=== PATIENT | female | born 2000 | race Caucasian/White ===

== ENCOUNTER → 2018-02-08 | Outpatient (CLI) | payer BC, OTHER ==
--- NOTE | 2018-02-08 11:21 | US ---
EXAMINATION TYPE: US abdomen complete DATE OF EXAM: 02/08/2018 COMPARISON: NONE CLINICAL HISTORY: Right Upper Quad Pain R10.11. Abdominal pain, nausea, constipation for 3 weeks EXAM MEASUREMENTS: Liver Length: 14.6 cm Gallbladder Wall: 0.3 cm CBD: 0.3 cm Spleen: 10.9 cm Right Kidney: 9.1 x 3.7 x 4.2 cm Left Kidney: 9.2 x 3.7 x 4.7 cm Extreme technical limitations due to patient's body habitus and large amount of overlying bowel con tent Pancreas: Obscured by bowel gas Liver: appears wnl as visualized Gallbladder: no evidence of stones Evidence for sonographic Jones's sign: no CBD: wnl as visualized Spleen: wnl Right Kidney: no evidence of hydronephrosis or mass as visualized Left Kidney: no evidence of hydronephrosis or mass as visualized Upper IVC: wnl Abd Aorta: visualized portions appear wnl The liver is homogenous. The intrahepatic portion of the IVC and proximal abdominal aorta are within normal limits. There is no evidence of cholelithiasis. Common bile duct is unremarkable. The visu alized portions of the pancreas are homogenous. The spleen is unremarkable. Kidneys are symmetric a nd free of hydronephrosis. No renal lesions are seen. IMPRESSION: No significant abnormality appreciated.
[2018-02-08 11:56] LABS: Basophils % (A) 0 %; Eosinophils # (A) 0.2 k/uL (0-0.7); Eosinophils % (A) 3 %; HCT 34.7 % (34.0-46.0); HGB 11.7 gm/dL (11.4-16.0); Lymphocytes # (A) 2.4 k/uL (1.0-4.8); Lymphocytes % (A) 30 %; MCH 28.5 pg (25.0-35.0); MCHC 33.6 g/dL (31.0-37.0); MCV 84.9 fL (80.0-100.0); Mean Platelet Volume 7.4; Monocytes # (A) 0.3 k/uL (0-1.0); Monocytes % (A) 4 %; Neutrophils # (A) 4.8 k/uL (1.3-7.7); Neutrophils % (A) 61 %; Platelet Count 259 k/uL (150-450); RBC 4.09 m/uL (3.80-5.40); RDW 12.8 % (11.5-15.5); WBC 7.8 k/uL (4.0-11.0)
[2018-02-08 12:26] LABS: ALT 33 U/L (9-52); AST 32 U/L (14-36); Albumin 4.2 g/dL (3.5-5.0); Alkaline Phosphatase 64 U/L (38-126); Amylase 54 U/L (30-110); Anion Gap 10 mmol/L; Blood Urea Nitrogen 7 mg/dL (7-17); Calcium 9.6 mg/dL (8.4-10.2); Carbon Dioxide 25 mmol/L (22-30); Chloride 105 mmol/L (98-107); Glucose 78 mg/dL (74-99); Lipase 27 U/L (23-300); Potassium 3.8 mmol/L (3.5-5.1); Sodium 140 mmol/L (137-145); Total Bilirubin 0.5 mg/dL (0.2-1.3); Total Protein 7.5 g/dL (6.3-8.2)
[2018-02-08 12:39] LABS: T4, Free (Free Thyroxine) 1.85 ng/dL (0.78-2.19)
[2018-02-08 13:14] LABS: HCG,Qualitative Serum Not Detected
[2018-02-08 14:38] LABS: Erythrocyte Sedimentation Rate 15 mm/hr (0-20)
== END | disposition home or self-care (01) ==
LOC: RADUSWWP 10:17
PROVIDERS: ATTEND Physician Assistant
DX: R10.11 Right upper quadrant pain (principal); R11.0 Nausea; E06.3 Autoimmune thyroiditis
CPT/HCPCS: 36415; 76700; 80053; 82150; 83690; 84439; 84443; 84481; 84703; 85025; 85652; 86376; 86800

== ENCOUNTER → 2018-03-26 | Outpatient (CLI) | payer BC, OTHER ==
[2018-03-26 16:59] LABS: T4, Free (Free Thyroxine) 1.4 ng/dL (0.83-1.43)
== END | disposition home or self-care (01) ==
LOC: LABWHC1 07:49
PROVIDERS: ATTEND Physician Assistant
DX: E06.3 Autoimmune thyroiditis (principal)
CPT/HCPCS: 36415; 84439; 84443; 84481

== ENCOUNTER → 2018-07-17 | Outpatient (CLI) | payer BC ==
--- NOTE | 2018-07-17 10:43 | US ---
EXAMINATION TYPE: US thyroid st tissue head/neck DATE OF EXAM: 07/17/2018 COMPARISON: 04/21/2011 CLINICAL HISTORY: 17-year-old female E04.9 Nontoxic Goiter Unspecified. TECHNIQUE: Multiple sonographic images of the thyroid gland are obtained. FINDINGS: GLAND SIZE: Right Lobe: 4.9 x 1.4 x 1.8 cm Overall Parenchyma: mildly heterogeneous Left Lobe: 4.7 x 1.4 x 1.5 cm Overall Parenchyma: mildly heterogeneous Isthmus Thickness: 0.3 cm NODULES RIGHT: # of nodules measured on right: 0 LEFT: # of nodules measured on left: 0 ISTHMUS: # of nodules measured in the isthmus: 0 Bilateral neck scanned, no evidence of lymphadenopathy. IMPRESSION: Borderline thyromegaly. No discrete nodules.
== END | disposition home or self-care (01) ==
LOC: RADUSWWP 07:36
PROVIDERS: ATTEND Family Medicine
DX: E01.0 Iodine-deficiency related diffuse (endemic) goiter (principal)
CPT/HCPCS: 76536

== ENCOUNTER 2019-02-28 21:52 | Inpatient (IN) | payer BC, MEDICAID, OTHER ==
--- NOTE | 2019-02-28 23:02 | ED ---
General Adult HPI - General Chief complaint: Psychiatric Symptoms Stated complaint: Suicidal Time Seen by Provider: 02/28/19 22:19 Source: patient, family, RN notes reviewed Mode of arrival: ambulatory Limitations: no limitations - History of Present Illness Initial comments: 18-year-old female with a past medical history of migraines, bipolar, depressi on, anxiety currently taking Lexapro and Seroquel as directed presents to the emergency department for suicidal thoughts. Patient states she has felt suicidal for about 3 weeks. Patient states this is related to her job. States her boss is causing her to have a lot of stress as she works in a longterm. Patient denies being a plan for this. Does state she has felt suicidal in the past and states that she attempted suicide once by taking all her Lexapro about a year ago. States she was not seen medically at that time and "threw up all the pills." Patient has no other complaints at this time including shortness of breath, chest pain, abdominal pain, nausea or vomiting, headache, or visual changes. - Related Data Home Medications Medication Instructions Recorded Confirmed Escitalopram [Lexapro] 10 mg PO DAILY 07/13/18 07/13/18 Ibuprofen [Motrin Ib] 400 mg PO Q6H PRN 07/13/18 07/13/18 QUEtiapine [SEROquel] 50 mg PO DAILY 07/13/18 07/13/18 Allergies Allergy/AdvReac Type Severity Reaction Status Date / Time No Known Allergies Allergy Verified 02/28/19 22:18 Review of Systems ROS Statement: Those systems with pertinent positive or pertinent negative responses have been documented in the HPI. ROS Other: All systems not noted in ROS Statement are negative. Past Medical History Past Medical History: Thyroid Disorder Additional Past Medical History / Comment(s): migraines History of Any Multi-Drug Resistant Organisms: None Reported Past Surgical History: No Surgical Hx Reported Past Psychological History: Anxiety, Bipolar, Depression Smoking Status: Current every day smoker Past Alcohol Use History: None Reported Past Drug Use History: None Reported General Exam Limitations: no limitations General appearance: alert, in no apparent distress Head exam: Present: atraumatic, normocephalic, normal inspection Eye exam: Present: normal appearance, PERRL, EOMI. Absent: scleral icterus, conjunctival injection, periorbital swelling ENT exam: Present: normal exam, mucous membranes moist Neck exam: Present: normal inspection, full ROM. Absent: tenderness, meningismus, lymphadenopathy Respiratory exam: Present: normal lung sounds bilaterally. Absent: respiratory distress, wheezes, rales, rhonchi, stridor Cardiovascular Exam: Present: regular rate, normal rhythm, normal heart sounds. Absent: systolic murmur, diastolic murmur, rubs, gallop, clicks Psychiatric exam: Present: normal affect, normal mood, suicidal ideation. Absent: homicidal ideation Course Vital Signs 02/28/19 22:12 Temperature 98.7 F Pulse Rate 83 Respiratory 20 Rate Blood Pressure 127/77 O2 Sat by Pulse 98 Oximetry Medical Decision Making - Medical Decision Making Patient was evaluated by EPS, patient was admitted for inpatient treatment. - Lab Data Lab Results 02/28/19 Range/Units 22:44 Urine Color Yellow Urine Appearance Cloudy H (Clear) Urine pH 6.0 (5.0-8.0) Ur Specific Fowler 1.035 (1.001-1.035) Urine Protein Trace H (Negative) Urine Glucose (UA) Negative (Negative) Urine Ketones Trace H (Negative) Urine Blood Negative (Negative) Urine Nitrite Negative (Negative) Urine Bilirubin Negative (Negative) Urine Urobilinogen 6.0 (<2.0) mg/dL Ur Leukocyte Esterase Negative (Negative) Urine RBC 26 H (0-5) /hpf Urine WBC 2 (0-5) /hpf Ur Squamous Epith Cells 13 H (0-4) /hpf Urine Bacteria Rare H (None) /hpf Urine Mucus Occasional H (None) /hpf Urine Opiates Screen Not Detected (NotDetected) Ur Oxycodone Screen Not Detected (NotDetected) Urine Methadone Screen Not Detected (NotDetected) Ur Propoxyphene Screen Not Detected (NotDetected) Ur Barbiturates Screen Not Detected (NotDetected) U Tricyclic Antidepress Detected H (NotDetected) Ur Phencyclidine Scrn Not Detected (NotDetected) Ur Amphetamines Screen Not Detected (NotDetected) U Methamphetamines Scrn Not Detected (NotDetected) U Benzodiazepines Scrn Not Detected (NotDetected) Urine Cocaine Screen Not Detected (NotDetected) U Marijuana (THC) Screen Not Detected (NotDetected) Disposition Clinical Impression: Suicidal ideation Disposition: ADMITTED IP TO THIS HOSP Condition: Fair Time of Disposition: 03:18
[2019-02-28 23:11] LABS: Appearance,Urine Cloudy (Clear); Bacteria,Urine Rare /hpf; Bilirubin,Urine Negative (Negative); Blood,Urine Negative (Negative); Color,Urine Yellow; Glucose,Urine (UA) Negative (Negative); Ketones,Urine Trace (Negative); Leukocyte Esterase,Urine Negative (Negative); Mucus,Urine Occasional /hpf; Nitrite,Urine Negative (Negative); Protein,Urine Trace (Negative); RBC,Urine 26 /hpf (0-5); Specific Gravity,Urine 1.035 (1.001-1.035); Squamous Epithelial Cell,Urine 13 /hpf (0-4); WBC,Urine 2 /hpf (0-5)
[2019-02-28 23:12] LABS: Amphetamine Screen,Urine Not Detected (NotDetected); Barbiturate Screen,Urine Not Detected (NotDetected); Benzodiazepines Screen,Urine Not Detected (NotDetected); Cocaine Screen,Urine Not Detected (NotDetected); Methadone Screen, Urine Not Detected (NotDetected); Opiate Screen,Urine Not Detected (NotDetected); Oxycodone Screen, Urine Not Detected (NotDetected); Phencyclidine Screen,Urine Not Detected (NotDetected); Tricyclic Antidepressant,Urine Detected (NotDetected); Urn Cannabinoid Scrn Not Detected (NotDetected)
[2019-03-01] MEDS ORDERED: MAGNESIUM HYDROXIDE 2,400 MG/10 ML CUP PO PRN (02:44)
[2019-03-01] MEDS ORDERED: MAG HYDROX/AL HYDROX/SIMETH 30 ML CUP PO PRN (02:44)
[2019-03-01] MEDS ORDERED: LORazepam 1 MG TAB PO PRN (02:44)
[2019-03-01] MEDS ORDERED: ESCITALOPRAM 20 MG TAB PO SCH (02:50)
[2019-03-01 03:27] VITALS: BMI 37.8
[2019-03-01] MEDS: QUEtiapine 25 MG TAB PO SCH ×2 (03:47→20:55)
[2019-03-01] MEDS: NICOTINE 14MG/24HR PATCH TRANSDERM SCH (10:05)
--- NOTE | 2019-03-01 11:52 | P.CONS ---
History of Present Illness - Reason for Consult Consult date: 03/01/19 Medical management - Chief Complaint Suicidal thoughts - History of Present Illness This is a 18-year-old female with past medical history of underlying depression who presented to the emergency room with suicidal thoughts. Patient is currently admitted to the psych unit. I was asked to see her for medical management. Patient reports feeling better today. She said that she was under a lot of emotional stress recently and has been having suicidal thoughts for the past 3 weeks. She said that she had the plan and her life but would not share the specifics with me. She denies any suicidal thoughts at this time. Patient does not have any specific complaints or concerns otherwise. She denies any substance abuse. She denies dysuria, fever, chills, or urinary frequency. Review of Systems Review of system: 14 points review of systems were obtained and were negative except to what were mentioned in the HPI. Past Medical History Past Medical History: Thyroid Disorder Additional Past Medical History / Comment(s): migraines History of Any Multi-Drug Resistant Organisms: None Reported Past Surgical History: No Surgical Hx Reported Past Psychological History: Anxiety, Bipolar, Depression Smoking Status: Current every day smoker Past Alcohol Use History: None Reported Past Drug Use History: None Reported Medications and Allergies Home Medications Medication Instructions Recorded Confirmed Type Escitalopram [Lexapro] 10 mg PO DAILY 07/13/18 03/01/19 History Ibuprofen [Motrin Ib] 400 mg PO Q6H PRN 07/13/18 03/01/19 History QUEtiapine [SEROquel] 50 mg PO DAILY 07/13/18 03/01/19 History Allergies Allergy/AdvReac Type Severity Reaction Status Date / Time No Known Allergies Allergy Verified 03/01/19 04:22 Physical Exam Vitals: Vital Signs Temp Pulse Pulse Resp BP BP Pulse Ox 03/01/19 03:19 98.0 F 67 16 129/76 98 02/28/19 22:12 98.7 F 83 20 127/77 98 Intake and Output 02/28/19 03/01/19 03/01/19 22:59 06:59 14:59 Other: Weight 93.894 kg General: The patient is awake and alert, in no distress Eye: there is normal conjunctiva bilaterally. Neck: The neck is supple, there is no JVD. Cardiovascular: Normal S1-S2, no S3-S4, no murmurs. Respiratory: Lungs clear to auscultation bilaterally Gastrointestinal: Abdomen is soft, nontender Musculoskeletal: There is no pedal edema. Neurological:. Speech is normal. Skin: Skin is warm and dry Results Labs: Abnormal Lab Results - Last 24 Hours (Table) 02/28/19 Range/Units 22:44 Urine Appearance Cloudy H (Clear) Urine Protein Trace H (Negative) Urine Ketones Trace H (Negative) Urine RBC 26 H (0-5) /hpf Ur Squamous Epith Cells 13 H (0-4) /hpf Urine Bacteria Rare H (None) /hpf Urine Mucus Occasional H (None) /hpf U Tricyclic Antidepress Detected H (NotDetected) Assessment and Plan Assessment: This is a 18-year-old female with history of severe depression admitted to the psych unit with suicidal thoughts. An arrangement per psychiatry. Urine sample obtained in the ER was not a clean catch urine and does not represent a UTI. Patient is a symptomatic. I would defer any treatment at this time. Patient expresses any urinary symptoms may obtain a clean-catch urine and repeat urinalysis. Management per psychiatry otherwise. Thank you very much for the consultation.
--- NOTE | 2019-03-01 16:41 | HP ---
HISTORY AND PHYSICAL DATE OF SERVICE: 03/01/2019 IDENTIFYING DATA: This patient is a 18-year-old single female who was admitted to the mental health unit through the emergency room for acute suicidal ideation. HISTORY OF PRESENT ILLNESS: The patient was brought to the hospital by her mother. The patient states that she had experienced a significant panic attack at home. During that panic attack she had made statements of wanting to . Her mother became alarmed and brought her to the hospital for evaluation. The patient states that she has been increasingly more depressed and anxious and had been considering suicide for the past 3 weeks. She states the panic attack was triggered by work related stress and in particular, she feels that her boss talks down to her. 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 She states that she feels on edge. She is anxious. Sleep has been improved with use of Seroquel. Appetite is stable. She endorses crying spells on a regular basis. She reports feeling hopeless at times. She continues to have ongoing suicidal thoughts of wanting to and she states that she would be better off . At times she feels she is not worthy of living. She endorses no homicidal ideation, intent, or plan. She reports no auditory, visual hallucinations or any specific delusions. She is endorsing no hypomanic or manic episodes. She endorses anxiety that is present on a daily basis excessively which contributes to sleep disturbance, irritability, muscle tension, etc. She states she has 1 panic attack about every 2 weeks and is worried that they will increase in frequency. She resides with her boyfriend. They have no firearms at home. PAST PSYCHIATRIC HISTORY: This is her first inpatient psychiatric admission. She does have a history of a suicide attempt in the past for she overdosed with Lexapro. She does have a history of self-injurious behavior in the form of cutting. She has been trying to reduce that and has not cut in the last 2 months. She is receiving counseling at [facility]. She had stopped and then just recently restarted. She is seeing a mid- level provider there and was put on Lexapro 20 mg 1 year ago, Seroquel 25 mg at bedtime. This was started in September. She has been on no other psychotropic medications. She feels that the Lexapro has been ineffective. The Seroquel has helped with sleep. PAST MEDICAL HISTORY: Gonzalo's. She is on no medication. ALLERGIES: No known drug allergies. CHEMICAL DEPENDENCY HISTORY: She reports no use of alcohol, marijuana, or illicit drugs. She has never been placed in residential treatment for chemical dependency reasons. FAMILY PSYCHIATRIC HISTORY: She states her mother, father and maternal grandmother are known to have anxiety and depression. Her paternal grandfather was known to have schizophrenia. In terms of suicides, a maternal cousin committed suicide in 2017. FAMILY CHEMICAL DEPENDENCY HISTORY: Her paternal grandfather had a severe alcohol use disorder. SOCIAL HISTORY: The patient is 18 years old. She is single. She has no children. She resides with her boyfriend. They have been together for 4 years and living together for 1 year. Primary support is derived from her mother. She states the relationship with her boyfriend is good. 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 She has a high school education. No history of service. She has 2 siblings, both brothers. LEGAL HISTORY: None reported. ABUSE HISTORY: None reported. MENTAL STATUS EXAM: The patient is an overweight female appearing her stated age. She is dressed in her own clothing. Hygiene and grooming are adequate. She wears eye glasses. There is evidence of cystic acne. She endorses a depressed mood with hopeless feelings and ongoing suicidal ideation. She reports no homicidal ideation, intent, or plan. She is endorsing no auditory or visual hallucinations or any specific delusions. There is no observed evidence of psychosis. She demonstrates no tangential thinking, loose associations or flight of ideas. She does not appear to be hypomanic or manic. She is cooperative and easily directed during the session. She demonstrates no verbal or physical aggressiveness. She demonstrates no involuntary repetitive movements. She is oriented to person, place, and date. She is able to name the days of the week backwards. Affect is appropriately expressive, but for the most part is constricted. STRENGTHS: Support from mother and boyfriend, housing, employment. WEAKNESSES: Ongoing severe symptoms of depression. INTELLECT: Average. IMPRESSIONS: Major depressive disorder, recurrent, severe, without psychosis; generalized anxiety disorder, rule out panic disorder. PLAN OF TREATMENT: The patient has been admitted to the mental health unit voluntarily. We reviewed her presenting symptoms and treatment options. We plan to cross taper off Lexapro and on the Zoloft. We are hoping the Zoloft will help address depressive anxiety symptoms. We discussed potential benefits and side effects of Zoloft and her questions were answered. She will be seen by Internal Medicine for routine history and physical exam. Social Work has met with the patient to complete a psychosocial assessment and begin discharge planning. We will involve the patient's mother in treatment and discharge planning as the patient will allow. She is instructed to participate fully in the milieu. We will monitor for safety. MMODL / IJN: [id number] /
[2019-03-01] MEDS: ACETAMINOPHEN TAB 325 MG TAB PO PRN (17:48)
[2019-03-01] MEDS: SERTRALINE 50 MG TAB PO SCH (20:55)
[2019-03-02 07:54] LABS: Basophils # (A) 0.1 k/uL (0-0.2); Basophils % (A) 1 %; Eosinophils # (A) 0.8 k/uL (0-0.7); Eosinophils % (A) 11 %; HCT 39.8 % (34.0-46.0); HGB 12.8 gm/dL (11.4-16.0); Lymphocytes # (A) 2.4 k/uL (1.0-4.8); Lymphocytes % (A) 30 %; MCH 27.9 pg (25.0-35.0); MCHC 32.1 g/dL (31.0-37.0); MCV 87.1 fL (80.0-100.0); Mean Platelet Volume 7.1; Monocytes # (A) 0.3 k/uL (0-1.0); Monocytes % (A) 4 %; Neutrophils % (A) 52 %; Platelet Count 309 k/uL (150-450); RBC 4.57 m/uL (3.80-5.40); RDW 12.7 % (11.5-15.5); WBC 7.7 k/uL (4.0-11.0)
[2019-03-02 08:38] LABS: ALT 26 U/L (9-52); AST 24 U/L (14-36); African American GFR (CKD) >90 (>60 ml/min/1.73 sqM); Albumin 4.2 g/dL (3.5-5.0); Alkaline Phosphatase 85 U/L (38-126); Anion Gap 7 mmol/L; Bilirubin, Delta 0.2 mg/dL (0.0-0.2); Bilirubin,Unconjugated 0.4 mg/dL (0.0-1.1); Blood Urea Nitrogen 9 mg/dL (7-17); Calcium 9.6 mg/dL (8.4-10.2); Carbon Dioxide 27 mmol/L (22-30); Chloride 106 mmol/L (98-107); Cholesterol 133 mg/dL (<200); Glucose 84 mg/dL (74-99); HDL Cholesterol 58 mg/dL (40-60); LDL Cholesterol,Calculated 53 mg/dL (0-99); Potassium 4.4 mmol/L (3.5-5.1); Sodium 140 mmol/L (137-145); Total Bilirubin 0.6 mg/dL (0.2-1.3); Total Protein 7.7 g/dL (6.3-8.2); Triglycerides 109 mg/dL (<150)
[2019-03-02] MEDS: NICOTINE 14MG/24HR PATCH TRANSDERM SCH (10:12)
[2019-03-02] MEDS: ESCITALOPRAM 10 MG TAB PO SCH (10:12)
--- NOTE | 2019-03-02 14:46 | P.PN ---
Progress Note - Text Interval history: The patient is found in the hallway she follows me to an interview room. She indicates that her mood is down today she had a tough conversation with her mother via phone. Her mother accused her of not trying hard enough and not wanting to get better. Her mother is visiting some night so she is hoping he'll be another chance to have a better discussion. We reviewed the patient's psychotropic medications. She has no questions or concerns. Sleep was stable appetite stable. Mental status exam: The patient is an alert overweight female appearing her stated age. She is pleasant and cooperative easily directed during the session. She indicates her mood is down she does have some self- injurious thoughts she continues to have suicidal thoughts. She feels that she is able to keep herself safe here in the hospital however. She reports no auditory or visual hallucinations. She is reporting no specific delusions. There is no observed evidence of psychosis hypomania or oskar. Insight and judgment limited. She is oriented to person place and date. Plan: The patient will continue on her current medications however we will discontinue the Lexapro she will remain on the Zoloft and this will likely need to be titrated further during the hospitalization. We will monitor her for safety and encourage participation in the milieu. Vital signs reviewed.
[2019-03-02] MEDS: SERTRALINE 50 MG TAB PO SCH (21:25)
[2019-03-02] MEDS: QUEtiapine 25 MG TAB PO SCH (21:25)
[2019-03-03] MEDS: ESCITALOPRAM 10 MG TAB PO SCH (08:44)
[2019-03-03] MEDS: NICOTINE 14MG/24HR PATCH TRANSDERM SCH (08:44)
[2019-03-03 09:38] LABS: Hemoglobin A1C 4.8 % (4.0-6.0)
--- NOTE | 2019-03-03 16:00 | P.PN ---
Progress Note - Text Progress Note Date: 03/03/19 Clinical Problems: Major depressive disorder recurrent severe without psychosis, generalized anxiety disorder, rule out panic disorder, rule out borderline personality disorder Interim history: I reviewed the medical record, interviewed the patient and discuss her treatment and treatment plan during team meeting. She is a 18-year-old single female admitted involuntarily to the psychiatric unit with suicidal ideation. Her mother brought her to the ER because during the argument she expressed suicidal ideation. She told the admitting psychiatrist that she has become increasingly more depressed and anxious and been considering suicide for approximately 3 weeks prior to admissio n. The current distress was triggered allegedly by a panic attack that she initially attributed to work stress. During our interview she alleged that she became enraged during the argument with her mother. She lives with the boyfriend was visiting with her mother on the day of admission. She told her mother her plans to the tips of her hair pink. Her mother criticized her and during the conversation she became more and more angry and anxious. The argument culminated in her experiencing what she described as a "panic attack" and expressing suicidal thoughts to her mother. She describes a history of a unstable relationship with her mother where she becomes acutely distressed whenever mother criticizes her. She described chronic feelings of loneliness and isolation. She has a history of self cutting and one prior suicide attempt by overdose. She described history of intense episodes of depression and anxiety as well as chronic feelings of emptiness. Since admission to the unit she denied having suicidal ideation, intent or plan. She continues to feel depressed and "moderately" anxious. Mental status exam: She presented as a moderately obese young female who was pleasant on approach. She made eye contact and attended to the interview. She had no prominent physical abnormalities. She had a bright facial expression. She was alert and oriented to person, place and time. She showed no abnormality of psychomotor activity. She had no abnormal movements. Her speech was spontaneous with normal rate, rhythm and volume. Affect was anxious but stable and appropriate. She denied suicidal ideation or wishes. She denied homicidal ideation. She expressed feelings of hopelessness and helplessness. She did not express ideas reference, paranoid ideation or delusional thoughts. Her thinking was abstract and associations were coherent, logical and goal directed. She denied hallucinations and did not appear to be responding to internal stimuli. Assessment: She is less anxious and depressed cognition but continues to experience feelings of hopelessness and helplessness. She described a history of chronic feelings of emptiness, periods of intense dysphoria, nonlethal self- harm, and marked dysphoria associated with unstable relationships. Plan: Continue inpatient hospitalization. Continue cross titration of Lexapro and Zoloft. Continue Seroquel 25 mg at bedtime and lorazepam 0.5 mg by mouth twice a day when necessary for anxiety. Continue safety precautions. Continue participation in therapeutic groups and activities. Evaluate clinical status response to treatment daily basis.
[2019-03-03] MEDS: ACETAMINOPHEN TAB 325 MG TAB PO PRN (16:41)
[2019-03-03] MEDS: SERTRALINE 50 MG TAB PO SCH (21:35)
[2019-03-03] MEDS: QUEtiapine 25 MG TAB PO SCH (21:35)
[2019-03-04] MEDS: ESCITALOPRAM 10 MG TAB PO SCH (10:21)
[2019-03-04] MEDS: NICOTINE 14MG/24HR PATCH TRANSDERM SCH (10:21)
--- NOTE | 2019-03-04 16:01 | P.PN ---
Progress Note - Text Progress Note Date: 03/04/19 Clinical Problems: Unspecified depressive disorder, rule out persistent depressive disorder, rule out major depressive disorder recurrent, borderline personality disorder Interim history: I reviewed the medical record, interviewed the patient and discuss her treatment and treatment plan during team meeting. She reported feeling "much better" and guarded about discharge. She states that she feels bored control emotion, loss and rage and less anxious. Nursing noted that she had a episode emotional dyscontrol yesterday evening following a telephone conversation with her mother. I provided her with information about dialectic behavioral therapy. She will read the printout and expressed interest in referral for the treatment. Mental status exam: She presented as a moderately obese young female who was pleasant on approach. She made eye contact and attended to the [facility] iew. She had no prominent physical abnormalities. She had a bright facial expression. She was alert and oriented to person, place and time. She showed no abnormality of psychomotor activity. She had no abnormal movements. Her speech was spontaneous with normal rate, rhythm and volume. Affect was stable and appropriate. She denied suicidal ideation or wishes. She denied homicidal ideation. She expressed feelings of hopelessness and helplessness. She did not express ideas reference, paranoid ideation or delusional thoughts. Her thinking was abstract and associations were coherent, logical and goal directed. She denied hallucinations and did not appear to be responding to internal stimuli. Assessment: She is not anxious and depressed cognition She has chronic feelings of emptiness, periods of intense dysphoria, nonlethal self-harm, and marked dysphoria associated with unstable relationships. Plan: Continue inpatient hospitalization. Discontinue sertraline 50 mg daily, continue Lexapro 10 mg daily, increased quetiapine to 50 mg at bedtime [06] Continue lorazepam 0.5 mg by mouth twice a day when necessary for anxiety. Continue safety precautions. Continue participation in therapeutic groups and activities. speeder worker will assist with aftercare services including referral for dialectic behavioral therapy. Evaluate clinical status response to treatment daily basis.
[2019-03-04] MEDS ORDERED: QUEtiapine 25 MG TAB PO SCH (21:00)
[2019-03-05 07:00] VITALS: BP 118/62; PULSE 91; RESP 16; TEMP 98.5
[2019-03-05] MEDS: ACETAMINOPHEN TAB 325 MG TAB PO PRN (08:31)
[2019-03-05] MEDS: ESCITALOPRAM 10 MG TAB PO SCH (08:31)
[2019-03-05] MEDS: NICOTINE 14MG/24HR PATCH TRANSDERM SCH (08:31)
--- NOTE | 2019-03-05 13:40 | P.DS ---
Providers Date of admission: 03/01/19 02:41 Attending physician: Mahad Moore MD Consults: 03/01/19 02:44 Consult Physician Routine Consulting Provider: Thuy Physician Consult Reason/Comments: Medical H and P Do you want consulting provider notified?: Yes Primary care physician: Stated None - Discharge Diagnosis(es) (1) Borderline personality disorder Current Visit: Yes Status: Chronic Priority: High (2) Adjustment disorder with disturbance of emotion Current Visit: Yes Status: Resolved Priority: Low (3) Suicidal ideation Current Visit: Yes Status: Resolved Priority: Medium Hospital Course: She is a 18-year-old single female admitted involuntarily to the psychiatric unit with suicidal ideation. Her mother brought her to the ER because during the argument she expressed suicidal ideation. She told the admitting psychiatrist that she has become increasingly more depressed and anxious and been considering suicide for approximately 3 weeks prior to admission. The current distress was triggered by a panic attack that she initially attributed to work stress. During our interviews she alleged that she became enraged during the argument with her mother. She lives with the boyfriend was visiting with her mother on the day of admission. She told her mother her plans to dye the tips of her hair pink. Her mother criticized her and during the conversation she became more and more angry and anxious. The argument culminated in her experiencing what she described as a "panic attack" and expressing suicidal thoughts to her mother. She describes a history of a unstable relationship with her mother where she becomes acutely distressed whenever mother criticizes her. She described chronic feelings of loneliness and isolation. She has a history of self cutting and one prior suicide attempt by overdose. She described history of intense episodes of depression and anxiety as well as chronic feelings of emptiness. We initially planned to transition from Lexapro to Zoloft but the patient's mood rapidly improved when she arrived on the unit. We continued Lexapro 10 mg per day and Seroquel 50 mg at bedtime. The social service agency director scheduled an intake assessment at [facility] the patient male role in dialectic behavioral therapy. Since admission to the unit she denied having suicidal ideation, intent or plan. At the time of discharge she denied feeling depressed or anxious. She denied feeling hopeless,, helpless or worthless. She is looking forward to participating in dialectic behavioral therapy. She presented as a moderately obese young female who was pleasant on approach. She made eye contact and attended to the interview. She had no prominent physical abnormalities. She had a bright facial expression. She was alert and oriented to person, place and time. She showed no abnormality of psychomotor activity. She had no abnormal movements. Her speech was spontaneous with normal rate, rhythm and volume. Affect was stable and appropriate. She denied suicidal ideation or wishes. She denied homicidal ideation. She expressed feelings of hopelessness and helplessness. She did not express ideas reference, paranoid ideation or delusional thoughts. Her thinking was abstract and associations were coherent, logical and goal directed. She denied hallucinations and did not appear to be responding to internal stimuli. Patient Condition at Discharge: Fair Plan - Discharge Summary New Discharge Prescriptions: New Nicotine 14Mg/24Hr Patch [Habitrol] 1 patch TRANSDERM DAILY 28 Days #28 patch Continue Ibuprofen [Motrin Ib] 400 mg PO Q6H PRN PRN Reason: Migraine Headache Escitalopram [Lexapro] 10 mg PO DAILY 28 Days #28 tab QUEtiapine [SEROquel] 50 mg PO DAILY 28 Days #28 tab Discharge Medication List Ibuprofen [Motrin Ib] 400 mg PO Q6H PRN 07/13/18 [History] Escitalopram [Lexapro] 10 mg PO DAILY 28 Days #28 tab 03/05/19 [Rx] Nicotine 14Mg/24Hr Patch [Habitrol] 1 patch TRANSDERM DAILY 28 Days #28 patch 03/05/19 [Rx] QUEtiapine [SEROquel] 50 mg PO DAILY 28 Days #28 tab 03/05/19 [Rx] Follow up Appointment(s)/Referral(s): [facility] [Outside] - 03/12/19 12:30 pm (W/ Laura) None,Stated [Primary Care Provider] - 1-2 days Patient Instructions/Handouts: Help Prevent Suicide (DC) Activity/Diet/Wound Care/Special Instructions: Activity and diet as tolerated. Avoid the use of street drugs and alcohol. Take all medications as prescribed. When you are in need of refills on your medications please contact your medical provider and/or outpatient psychiatrist to have this done. Please go to scheduled outpatient appointment for aftercare. If symptoms return or become worse call the crisis line at and/or go to the nearest emergency room for an evaluation. Discharge Disposition: HOME SELF-CARE
== END 2019-03-05 16:36 | disposition home or self-care (01) | DRG 882 ==
LOC: EC 21:52 → 3MHU 03-01 02:41
PROVIDERS: ADMIT Psychiatry & Neurology Psychiatry; ATTEND Psychiatry & Neurology Psychiatry
DX: F43.25 Adjustment disorder with mixed disturbance of emotions and conduct (principal); R45.851 Suicidal ideations; F60.3 Borderline personality disorder; G47.9 Sleep disorder, unspecified; E06.3 Autoimmune thyroiditis; G43.909 Migraine, unspecified, not intractable, without status migrainosus; L70.0 Acne vulgaris; E66.9 Obesity, unspecified; Z68.37 Body mass index [BMI] 37.0-37.9, adult; Z71.6 Tobacco abuse counseling; F17.210 Nicotine dependence, cigarettes, uncomplicated; Z79.899 Other long term (current) drug therapy; Z91.5 Personal history of self-harm; Z81.8 Family history of other mental and behavioral disorders; Z81.1 Family history of alcohol abuse and dependence
CPT/HCPCS: 80053; 80061; 80306; 81001; 81025; 82075; 82248; 83036; 84443; 85025; 99285

== ENCOUNTER 2019-04-07 12:53 | Emergency (ER) | payer OTHER ==
[2019-04-07 12:58] VITALS: BP 119/80; PULSE 84; RESP 18; TEMP 97.8
--- NOTE | 2019-04-07 13:27 | ED ---
ENT HPI - General Chief complaint: ENT Stated complaint: lt ear problem Time Seen by Provider: 04/07/19 13:01 Source: patient, RN notes reviewed Mode of arrival: ambulatory Limitations: no limitations - History of Present Illness Initial comments: 18-year-old female presents emergency department for left ear pain. Patient states his started about 3 days ago along with sinus congestion cough prior to this. Patient states pain is worsened. She has been taking over to his neck. Patient denies any fevers or chills. Patient offers no complaints. - Related Data Home Medications Medication Instructions Recorded Confirmed Ibuprofen [Motrin Ib] 400 mg PO Q6H PRN 07/13/18 03/01/19 Previous Rx's Medication Instructions Recorded Escitalopram [Lexapro] 10 mg PO DAILY 28 Days #28 tab 03/05/19 Nicotine 14Mg/24Hr Patch [Habitrol] 1 patch TRANSDERM DAILY 28 Days 03/05/19 #28 patch QUEtiapine [SEROquel] 50 mg PO DAILY 28 Days #28 tab 03/05/19 Amoxicillin/Potassium Clav 1 tab PO Q12HR #20 tab 04/07/19 [Augmentin 875-125 Tablet] Allergies Allergy/AdvReac Type Severity Reaction Status Date / Time No Known Allergies Allergy Verified 04/07/19 12:56 Review of Systems ROS Statement: Those systems with pertinent positive or pertinent negative responses have been documented in the HPI. ROS Other: All systems not noted in ROS Statement are negative. Past Medical History Past Medical History: Thyroid Disorder Additional Past Medical History / Comment(s): migraines History of Any Multi-Drug Resistant Organisms: None Reported Past Surgical History: No Surgical Hx Reported Past Psychological History: Anxiety, Bipolar, Depression Smoking Status: Current every day smoker Past Alcohol Use History: None Reported Past Drug Use History: None Reported General Exam Limitations: no limitations General appearance: alert, in no apparent distress Head exam: Present: atraumatic, normocephalic, normal inspection Eye exam: Present: normal appearance, PERRL, EOMI. Absent: scleral icterus, conjunctival injection, periorbital swelling ENT exam: Present: normal exam, normal oropharynx, mucous membranes moist, normal external ear exam (mild cerumen in the right). Absent: TM's normal bilaterally (left TM erythematous) Neck exam: Present: normal inspection, full ROM. Absent: tenderness, meningismus, lymphadenopathy Respiratory exam: Present: normal lung sounds bilaterally. Absent: respiratory distress, wheezes, rales, rhonchi, stridor Cardiovascular Exam: Present: regular rate, normal rhythm, normal heart sounds. Absent: systolic murmur, diastolic murmur, rubs, gallop, clicks GI/Abdominal exam: Present: soft, normal bowel sounds. Absent: distended, tenderness, guarding, rebound, rigid Back exam: Absent: CVA tenderness (R), CVA tenderness (L) Neurological exam: Present: alert, oriented X3, CN II-XII intact, reflexes normal. Absent: motor sensory deficit Skin exam: Present: warm, dry, intact, normal color. Absent: rash Course Vital Signs 04/07/19 12:56 Temperature 97.8 F Pulse Rate 84 Respiratory 18 Rate Blood Pressure 119/80 O2 Sat by Pulse 98 Oximetry Medical Decision Making - Medical Decision Making patient reawill be treated fors for left otitis media. Patient started on Augmentin. Return parameters discussed. Patient advised to continue decongestants. Disposition Clinical Impression: Left otitis media Disposition: HOME SELF-CARE Condition: Stable Instructions (If sedation given, give patient instructions): Earache (ED) Additional Instructions: Please return to the Emergency Department if symptoms worsen or any other concerns. Prescriptions: Amoxicillin/Potassium Clav [Augmentin 875-125 Tablet] 1 tab PO Q12HR #20 tab Is patient prescribed a controlled substance at d/c from ED?: No Referrals: None,Stated [Primary Care Provider] - 1-2 days Time of Disposition: 13:26
== END 2019-04-07 13:46 | disposition home or self-care (01) ==
LOC: EC 12:53
DX: H66.92 Otitis media, unspecified, left ear (principal); R09.81 Nasal congestion; R05 Cough; F17.200 Nicotine dependence, unspecified, uncomplicated
CPT/HCPCS: 99282

== ENCOUNTER → 2020-06-14 | Outpatient (CLI) | payer OTHER ==
--- NOTE | 2020-06-15 09:14 | US ---
EXAMINATION TYPE: US thyroid st tissue head/neck DATE OF EXAM: 06/14/2020 COMPARISON: US July 17, 2018 CLINICAL HISTORY: E04.9 NONTOXIC GOITER. Goiter, pt states no known thyroid problems GLAND SIZE: Right Lobe: 4.3 x 1.3 x 1.7 cm Overall Parenchyma: homogenous Left Lobe: 4.7 x 1.3 x 1.5 cm Overall Parenchyma: homogeneous Isthmus Thickness: 0.2 cm Bilateral neck scanned, no evidence of lymphadenopathy. Bilateral thyroid gland appeared wnl. Homogeneous normal-sized thyroid without discrete nodule. No significant change from prior. IMPRESSION: As above.
== END | disposition home or self-care (01) ==
LOC: RADUSWWP 16:52
PROVIDERS: ATTEND Family Medicine
DX: E04.9 Nontoxic goiter, unspecified (principal)
CPT/HCPCS: 76536

== ENCOUNTER → 2020-06-16 | Outpatient (CLI) | payer OTHER ==
[2020-06-16 20:39] LABS: Thyroid Peroxidase Antibodies 45.2 U/mL (0.0-60.0)
[2020-06-16 22:24] LABS: ALT 22 U/L (8-44); AST 28 U/L (13-35); African American GFR (CKD) 105.9 (60.0-200.0); Albumin/Globulin Ratio 1.27 (1.60-3.17); Alkaline Phosphatase 92 U/L (41-126); Amylase 104 U/L (23-121); BUN/Creat Ratio 15.56 Ratio (12.00-20.00); Calcium 9.9 mg/dL (8.7-10.3); Carbon Dioxide 21.4 mmol/L (21.6-31.8); Chloride 103 mmol/L (96-109); GGT <15 U/L (0-38); Globulin 3.3 g/dL (1.6-3.3); Glucose 78 mg/dL (70-110); Lipase 27 U/L (14-63); Non-African American GFR(CKD) 91.4 (60.0-200.0); Potassium 3.8 mmol/L (3.5-5.5); Sodium 139 mmol/L (135-145); Total Bilirubin 0.6 mg/dL (0.3-1.2); Total Protein 7.5 g/dL (6.2-8.2)
== END | disposition home or self-care (01) ==
LOC: LABWHC1 10:00
PROVIDERS: ATTEND Physician Assistant
DX: E04.9 Nontoxic goiter, unspecified (principal); R19.7 Diarrhea, unspecified
CPT/HCPCS: 84439; 84481; 80053; 82150; 82977; 83690; 84443; 86800; 86376; 83630; 36415; G0328; 82272

== ENCOUNTER → 2020-07-15 | Outpatient (CLI) | payer OTHER ==
[2020-07-15 20:45] LABS: Gliadin AB IgA, Deaminated NEGATIVE (NEGATIVE); Gliadin AB IgA, Unit <0.2 U/mL; Gliadin AB IgG, Deaminated NEGATIVE (NEGATIVE)
== END | disposition home or self-care (01) ==
LOC: LABWHC1 10:04
PROVIDERS: ATTEND Nurse Practitioner
DX: R19.4 Change in bowel habit (principal)
CPT/HCPCS: 36415; 83516; 87045; 87046

== ENCOUNTER 2021-07-13 11:53 | Outpatient (CLI) | payer OTHER ==
[2021-07-13 13:38] VITALS: BP 117/71; PULSE 93; RESP 18; TEMP 97.7
--- NOTE | 2021-07-13 20:59 | P.MSEPDOC ---
Presenting Problems - Arrival Data Date of Arrival on Unit: 07/13/21 Time of Arrival on Unit: 11:53 Mode of Transport: Ambulatory - Complaint OB-Reason for Admission/Chief Complaint: Decreased Movement Medical History - Information : 1 Para: 0 Term: 0 : 0 Abortions: Spontaneous or Elective: 0 Number of Living Children: 0 - Gestational Age Gestational Age by BINH (wks/days): 29 Weeks and 4 Days Review of Systems - Review of Systems Constitutional: No problems Breast: No problems ENT: No problems Cardiovascular: No problems Respiratory: No problems Gastrointestinal: No problems Genitourinary: No problems Musculoskeletal: No problems Neurological: No problems Skin: No problems Vital Signs - Temperature Temperature: 97.7 F Temperature Source: Temporal Artery Scan - Pulse Right Pulse Oximetery Pulse Rate: 93 Pulse Assessment Method: Pulse Oximetry - Respirations Respiratory Rate: 18 Oxygen Delivery Method: Room Air O2 Sat by Pulse Oximetry: 97 - Blood Pressure Right Arm Blood Pressure: 117/71 Blood Pressure Mean: 86 Blood Pressure Source: Automatic Cuff Medical Screen Scoring - Assessment - Baby A Baseline FHR: 130 Heart Rate - NICHD Category: Category I (Normal) NST: Reactive Physician Notification - Physician Notified Physician Notified Date: 07/13/21 Physician Notified Time: 13:09 Physician: Maricel Richards New Order Received: Yes - Notification Comment Comment: pt here for decreased movement, NST reactive, pt discharged home. Maternal Triage Index - Maternal Triage Index Presenting for scheduled procedure w/no complaint: No - Stat/Priority 1 Stat Priority 1: No - Urgent/Priority 2 Urgent Priority 2: Yes Provider Notified: Maricel Richards Provider Notified Time: 13:09 Criteria Met for Priority 2: complaint of decreased movement Disposition - Disposition OB Disposition: Discharge to home Discharge Date: 07/13/21 Discharge Time: 13:15 I agree with the RN Medical Screening Exam: Yes Case reviewed; plan agreed upon as documented in EMR&OBIX.: Yes Diagnosis: DECREASED MOVEMENTS, THIRD TRIMESTER, UNSP
== END 2021-07-13 13:15 | disposition home or self-care (01) ==
LOC: FBPOP 11:53
PROVIDERS: ATTEND Obstetrics & Gynecology
DX: O36.8130 Decreased fetal movements, third trimester, not applicable or unspecified (principal); Z3A.29 29 weeks gestation of pregnancy
CPT/HCPCS: 59025; G0463; 99213

== ENCOUNTER 2021-09-18 05:55 | Inpatient (IN) | payer OTHER ==
[2021-09-18] MEDS ORDERED: CARBOPROST TROMETHAMINE 250 MCG/ML 1 ML AMP IM PRN (06:21)
[2021-09-18] MEDS ORDERED: OXYTOCIN 10 UNIT/ML 1 ML VIAL IM PRN (06:21)
[2021-09-18] MEDS ORDERED: LIDOCAINE 0.5% (PF) 5 MG/ML (50 ML SDV) SQ PRN (06:21)
[2021-09-18] MEDS ORDERED: METHYLERGONOVINE 0.2 MG/ML 1 ML AMP IM PRN (06:21)
[2021-09-18] MEDS ORDERED: TERBUTALINE 1 MG/ML VIAL SQ PRN (06:21)
[2021-09-18] MEDS: LACTATED RINGERS 1,000 ML IV SCH ×2 (07:05→08:07)
--- NOTE | 2021-09-18 07:45 | P.HPOB ---
History of Present Illness H&P Date: 09/18/21 Chief Complaint: Normal Labor 20 year old presents at 39 weeks 1 day in labor. Her cervix is 4/90/-1. Amniosure was positive in triage. hear tones 130 with moderate variability and reactive. She is monique every few minutes. Review of Systems All systems: negative Constitutional: Denies chills, Denies fever Eyes: denies blurred vision, denies pain Ears, nose, mouth and throat: Denies headache, Denies sore throat Cardiovascular: Denies chest pain, Denies shortness of breath Respiratory: Denies cough Gastrointestinal: Denies abdominal pain, Denies diarrhea, Denies nausea, Denies vomiting Genitourinary: Denies dysuria, Denies hematuria Musculoskeletal: Denies myalgias Integumentary: Denies pruritus, Denies rash Neurological: Denies numbness, Denies weakness Psychiatric: Denies anxiety, Denies depression Endocrine: Denies fatigue, Denies weight change Past Medical History Past Medical History: Thyroid Disorder Additional Past Medical History / Comment(s): migraines History of Any Multi-Drug Resistant Organisms: None Reported Past Surgical History: No Surgical Hx Reported Past Anesthesia/Blood Transfusion Reactions: No Reported Reaction Past Psychological History: Anxiety, Bipolar, Depression Smoking Status: Vaper Past Alcohol Use History: None Reported Past Drug Use History: None Reported Medications and Allergies Home Medications Medication Instructions Recorded Confirmed Type Pnv No.95/Ferrous Fum/Folic AC 1 each PO DAILY 07/13/21 09/18/21 History [ Multivitamin Tablet] busPIRone HCL 50 mg PO DAILY 07/13/21 09/18/21 History lamoTRIgine [LaMICtal] 25 mg PO TID 07/13/21 09/18/21 History Allergies Allergy/AdvReac Type Severity Reaction Status Date / Time No Known Allergies Allergy Verified 09/18/21 05:58 Exam Osteopathic Statement: *. No significant issues noted on an osteopathic structural exam other than those noted in the History and Physical/Consult. Vital Signs Temp Pulse Resp BP Pulse Ox 09/18/21 06:20 96.5 F L 56 L 16 133/84 09/18/21 05:58 95.7 F L 61 18 135/74 98 Intake and Output 09/17/21 09/18/21 09/18/21 22:59 06:59 14:59 Other: Weight 102.058 kg Heart: Regular rate and rhythm Lungs: Clear to auscultation bilaterally Abdomen: Soft, nontender Extremities: Negative Homans sign Assessment and Plan (1) Normal labor Current Visit: Yes Status: Acute Code(s): O80 - ENCOUNTER FOR FULL-TERM UNCOMPLICATED DELIVERY; Z37.9 - OUTCOME OF DELIVERY, UNSPECIFIED SNOMED Code(s): 84779553 (2) Spontaneous rupture of membranes Current Visit: Yes Status: Acute Code(s): WNS8357 - SNOMED Code(s): 150914453 Plan: 1. admit to [facility] 2. expectant management 3. anticipate normal vaginal delivery
--- NOTE | 2021-09-18 07:46 | P.MSEPDOC ---
Presenting Problems - Arrival Data Date of Arrival on Unit: 09/18/21 Time of Arrival on Unit: 05:55 Mode of Transport: Ambulatory - Complaint OB-Reason for Admission/Chief Complaint: Possible Onset of Labor, Rule Out SROM Comment: pt. states possible SROM around 0500 and contractions rating pain 8/10 Medical History - Information : 1 Para: 0 Term: 0 : 0 Abortions: Spontaneous or Elective: 0 Number of Living Children: 0 - Gestational Age Gestational Age by BINH (wks/days): 39 Weeks and 1 Days - History Comment: mackenzie MF for family hx of chromosomal deletion, patient states MFM mio everything looks good Review of Systems - Review of Systems Constitutional: No problems Breast: No problems ENT: No problems Cardiovascular: No problems Respiratory: No problems Gastrointestinal: No problems Genitourinary: No problems Musculoskeletal: No problems Neurological: No problems Skin: No problems Vital Signs - Temperature Temperature: 96.5 F Temperature Source: Temporal Artery Scan - Pulse Right Brachial Pulse Rate: 56 Pulse Assessment Method: Automatic Cuff - Respirations Respiratory Rate: 16 Oxygen Delivery Method: Room Air - Blood Pressure Right Arm Blood Pressure: 133/84 Blood Pressure Mean: 100 Blood Pressure Source: Automatic Cuff Medical Screen Scoring - Cervical Exam Dilation (cm): 4 Effacement (%): 90 Station: -2 Membranes: Ruptured - Uterine Contractions Frequency From (mins): 2 Frequency To (mins): 3 Duration From (seconds): 40 Duration To (seconds): 60 Intensity: Moderate Resting: Soft to palpation - Assessment - Baby A Baseline FHR: 120 Heart Rate - NICHD Category: Category I (Normal) NST: Reactive Physician Notification - Physician Notified Physician Notified Date: 09/18/21 Physician Notified Time: 06:19 Physician: Loretta Robles Order Received: Yes Maternal Triage Index - Maternal Triage Index Presenting for scheduled procedure w/no complaint: No - Stat/Priority 1 Stat Priority 1: No - Urgent/Priority 2 Urgent Priority 2: No - Prompt/Priority 3 Prompt Priority 3: Yes Criteria Met for Priority 3: SROM, 39 weeks and 1, contractions Disposition - Disposition OB Disposition: Admit I agree with the RN Medical Screening Exam: Yes Case reviewed; plan agreed upon as documented in EMR&OBIX.: Yes Diagnosis: ENCOUNTER FOR FULL-TERM UNCOMPLICATED DELIVERY
[2021-09-18 08:01] LABS: Basophils % (A) 0 %; Eosinophils # (A) 0.1 k/uL (0-0.7); Eosinophils % (A) 1 %; HCT 35.6 % (34.0-46.0); HGB 11.4 gm/dL (11.4-16.0); Lymphocytes # (A) 1.6 k/uL (1.0-4.8); Lymphocytes % (A) 15 %; MCH 26.9 pg (25.0-35.0); Mean Platelet Volume 11.4; Monocytes # (A) 0.4 k/uL (0-1.0); Monocytes % (A) 3 %; Neutrophils # (A) 8.1 k/uL (1.3-7.7); Neutrophils % (A) 79 %; Platelet Count 179 k/uL (150-450); RBC 4.23 m/uL (3.80-5.40); RDW 13.9 % (11.5-15.5); WBC 10.3 k/uL (3.8-10.6)
[2021-09-18 08:40] LABS: RBC Morphology Normal
[2021-09-18] MEDS ORDERED: ZOLPIDEM 5 MG TAB PO PRN (11:03)
[2021-09-18] MEDS ORDERED: HYDROCORTISONE 2.5% RECTAL CREAM 30 GM TUBE RECTAL PRN (11:03)
[2021-09-18] MEDS ORDERED: SIMETHICONE 80 MG CHEWABLE PO PRN (11:03)
[2021-09-18] MEDS ORDERED: diphenhydrAMINE 50 MG/ML 1 ML VIAL IVP PRN ×2 (11:03)
[2021-09-18] MEDS ORDERED: diphenhydrAMINE 50 MG CAP PO PRN (11:03)
[2021-09-18] MEDS ORDERED: BENZOCAINE/MENTHOL SPRAY 1 GM/SPRAY AEROSOL TOPICAL PRN (11:03)
[2021-09-18] MEDS ORDERED: diphenhydrAMINE 25 MG CAP PO PRN (11:03)
[2021-09-18] MEDS ORDERED: LANOLIN CREAM 5 GM TUBE TOPICAL PRN (11:03)
[2021-09-18] MEDS ORDERED: ACETAMINOPHEN TAB 325 MG TAB PO PRN (11:03)
--- NOTE | 2021-09-18 11:05 | P.PROBDLV ---
Vaginal Delivery Note - . Vaginal Delivery Note: 20 year old presents at 39 weeks 1 day in labor. Her cervix is 4/90/-1. Amniosure was positive in triage. hear tones 130 with moderate variability and reactive. She is monique every few minutes. She was admitted to [facility] and epidural was given for pain management. She progressed slowly through to complete at 10:06 AM. She pushed and delivered a viable male over intact perineum under epidural anesthesia at 10:46 AM. Head delivered OA, anterior shoulder delivered gentle downward guidance. Posterior shoulder and rest of body. Nose mouth bulb suctioned, cord clamped and cut, infant placed on mother's abdomen. Apgars 8, 9, weight 7 lbs. 7 oz. Placenta delivered spontaneously, intact with three-vessel cord at 1047. Vagina, cervix, and perineum inspected. Second-degree midline laceration and a periurethral laceration were repaired with 3-0 Vicryl. Estimated blood loss 250 mL. Mother and baby in stable condition.
[2021-09-18] MEDS ORDERED: OXYTOCIN 30 UNITS/500 ML NS 30 UNIT in SALINE 1 500ML.BAG IV SCH (11:15)
[2021-09-18] MEDS: IBUPROFEN 600 MG TAB PO PRN (19:20)
[2021-09-18] MEDS: SENNOSIDES-DOCUSATE SODIUM 1 EACH TAB PO SCH (19:21)
[2021-09-18 19:30] VITALS: RESP 16
[2021-09-19 07:02] LABS: Basophils % (A) 0 %; Eosinophils # (A) 0.2 k/uL (0-0.7); Eosinophils % (A) 1 %; HCT 28.6 % (34.0-46.0); Lymphocytes # (A) 2.3 k/uL (1.0-4.8); Lymphocytes % (A) 20 %; MCH 27.6 pg (25.0-35.0); MCV 83.6 fL (80.0-100.0); Mean Platelet Volume 11.5; Monocytes # (A) 0.4 k/uL (0-1.0); Monocytes % (A) 4 %; Neutrophils # (A) 8.2 k/uL (1.3-7.7); Neutrophils % (A) 73 %; Platelet Count 188 k/uL (150-450); RBC 3.42 m/uL (3.80-5.40); RDW 14.7 % (11.5-15.5); WBC 11.2 k/uL (3.8-10.6)
[2021-09-19 07:03] LABS: HGB 9.4 gm/dL (11.4-16.0)
[2021-09-19 08:22] VITALS: BP 131/80; PULSE 91; TEMP 98.2
[2021-09-19] MEDS: SENNOSIDES-DOCUSATE SODIUM 1 EACH TAB PO SCH (08:26)
--- NOTE | 2021-09-19 09:13 | P.DS ---
Providers Date of admission: 09/18/21 06:05 Expected date of discharge: 09/19/21 Attending physician: Maricel Richards Primary care physician: Stated None - Discharge Diagnosis(es) (1) Normal labor Current Visit: Yes Status: Resolved (2) Spontaneous rupture of membranes Current Visit: Yes Status: Resolved (3) Normal vaginal delivery Current Visit: Yes Status: Acute Hospital Course: Patient presented in active labor. She underwent a normal vaginal delivery. course was uncomplicated. She denies nausea, vomiting, chest pain, shortness of breath or calf pain. Patient will be discharged home day #1 in stable condition to follow-up with Dr. Richards in 6 weeks. Plan - Discharge Summary New Discharge Prescriptions: New Ibuprofen [Motrin] 600 mg PO Q6HR PRN #30 tab PRN Reason: Mild Pain (Scale 1 To 3) No Action lamoTRIgine [LaMICtal] 25 mg PO TID busPIRone HCL 50 mg PO DAILY Pnv No.95/Ferrous Fum/Folic AC [ Multivitamin Tablet] 1 each PO DAILY Discharge Medication List Pnv No.95/Ferrous Fum/Folic AC [ Multivitamin Tablet] 1 each PO DAILY 07/13/21 [History] busPIRone HCL 50 mg PO DAILY 07/13/21 [History] lamoTRIgine [LaMICtal] 25 mg PO TID 07/13/21 [History] Ibuprofen [Motrin] 600 mg PO Q6HR PRN #30 tab 09/19/21 [Rx] Follow up Appointment(s)/Referral(s): Maricel Richards DO [Doctor of Osteopathic Medicine] - 6 Weeks Discharge Disposition: HOME SELF-CARE
[2021-09-19] MEDS: IBUPROFEN 600 MG TAB PO PRN (13:52)
== END 2021-09-19 14:40 | disposition home or self-care (01) | DRG 807 ==
LOC: FBPOP 05:55 → 4FBP 06:05
PROVIDERS: ADMIT Obstetrics & Gynecology; ATTEND Obstetrics & Gynecology
PROC: 10E0XZZ Delivery of Products of Conception, External Approach (ICD-10-PCS; principal; 2021-09-18)
PROC: 0KQM0ZZ Repair Perineum Muscle, Open Approach (ICD-10-PCS; 2021-09-18)
DX: O70.1 Second degree perineal laceration during delivery (principal); Z37.0 Single live birth; O71.82 Other specified trauma to perineum and vulva; Z3A.39 39 weeks gestation of pregnancy; Z79.899 Other long term (current) drug therapy; O99.344 Other mental disorders complicating childbirth; F41.9 Anxiety disorder, unspecified; F31.9 Bipolar disorder, unspecified
CPT/HCPCS: 59025; 84112; 85025; 86850; 86900; 86901; 99213

== ENCOUNTER 2021-11-17 11:09 | Inpatient (IN) | payer MEDICAID, OTHER ==
[2021-11-17 12:23] LABS: Amphetamine Screen,Urine Not Detected (NotDetected); Barbiturate Screen,Urine Not Detected (NotDetected); Benzodiazepines Screen,Urine Detected (NotDetected); Cocaine Screen,Urine Not Detected (NotDetected); Methadone Screen, Urine Not Detected (NotDetected); Opiate Screen,Urine Not Detected (NotDetected); Oxycodone Screen, Urine Not Detected (NotDetected); Phencyclidine Screen,Urine Not Detected (NotDetected); Tricyclic Antidepressant,Urine Not Detected (NotDetected); Urn Cannabinoid Scrn Not Detected (NotDetected)
--- NOTE | 2021-11-17 12:39 | ED ---
Psych HPI - General Chief Complaint: Psychiatric Symptoms Stated Complaint: Post Pard Depression Time Seen by Provider: 11/17/21 11:26 Source: patient, RN notes reviewed Mode of arrival: ambulatory Limitations: no limitations - History of Present Illness Initial Comments: 21-year-old female presents emergency Department with chief complaint of depression. Patient's been having increased depression over the last several weeks. Patient is currently on medication and has a history of depression. She states she has 2 months . She states that she's having very horrible thoughts of possibly harming herself or the baby but no she won't. Patient states she does feel safe and states that she needs further help denies any drug or alcohol abuse. - Related Data Home Medications Medication Instructions Recorded Confirmed lamoTRIgine [LaMICtal] 75 mg PO DAILY 07/13/21 11/17/21 Norelgestromin/Ethin.estradiol 1 patch TRANSDERM MO 11/17/21 11/17/21 [Xulane 150-35 Mcg/Day Patch] busPIRone HCL 15 mg PO TID 11/17/21 11/17/21 traZODone HCL [Desyrel] 50 mg PO HS 11/17/21 11/17/21 Allergies Allergy/AdvReac Type Severity Reaction Status Date / Time No Known Allergies Allergy Verified 11/17/21 12:12 Review of Systems ROS Statement: Those systems with pertinent positive or pertinent negative responses have been documented in the HPI. ROS Other: All systems not noted in ROS Statement are negative. Past Medical History Past Medical History: Thyroid Disorder Additional Past Medical History / Comment(s): migraines History of Any Multi-Drug Resistant Organisms: None Reported Past Surgical History: No Surgical Hx Reported Past Anesthesia/Blood Transfusion Reactions: No Reported Reaction Past Psychological History: Anxiety, Bipolar, Depression Smoking Status: Vaper Past Alcohol Use History: None Reported Past Drug Use History: None Reported General Exam Limitations: no limitations General appearance: alert, in no apparent distress Head exam: Present: atraumatic, normocephalic, normal inspection Eye exam: Present: normal appearance, PERRL, EOMI. Absent: scleral icterus, conjunctival injection, periorbital swelling Neck exam: Present: normal inspection, full ROM. Absent: tenderness, meningismus, lymphadenopathy Respiratory exam: Present: normal lung sounds bilaterally. Absent: respiratory distress, wheezes, rales, rhonchi, stridor Cardiovascular Exam: Present: regular rate, normal rhythm, normal heart sounds. Absent: systolic murmur, diastolic murmur, rubs, gallop, clicks Neurological exam: Present: alert, oriented X3, CN II-XII intact, reflexes normal. Absent: motor sensory deficit Psychiatric exam: Present: depressed Skin exam: Present: warm, dry, intact, normal color. Absent: rash Course Vital Signs 11/17/21 11/17/21 11:19 11:47 Temperature 99 F Pulse Rate 80 60 Respiratory 16 16 Rate Blood Pressure 111/73 135/60 O2 Sat by Pulse 100 98 Oximetry Medical Decision Making - Medical Decision Making Patient will be admitted for psychiatric treatment - Lab Data Lab Results 11/17/21 Range/Units 11:55 Urine Opiates Screen Not Detected (NotDetected) Ur Oxycodone Screen Not Detected (NotDetected) Urine Methadone Screen Not Detected (NotDetected) Ur Propoxyphene Screen Not Detected (NotDetected) Ur Barbiturates Screen Not Detected (NotDetected) U Tricyclic Antidepress Not Detected (NotDetected) Ur Phencyclidine Scrn Not Detected (NotDetected) Ur Amphetamines Screen Not Detected (NotDetected) U Methamphetamines Scrn Not Detected (NotDetected) U Benzodiazepines Scrn Detected H (NotDetected) Urine Cocaine Screen Not Detected (NotDetected) U Marijuana (THC) Screen Not Detected (NotDetected) Disposition Clinical Impression: Depression Disposition: TRANSFER TO PSYCH HOSP/UNIT Condition: Fair Referrals: None,Stated [Primary Care Provider] - 1-2 days Time of Disposition: 12:39
[2021-11-17] MEDS ORDERED: MAG HYDROX/AL HYDROX/SIMETH 30 ML CUP PO PRN (14:52)
[2021-11-17] MEDS ORDERED: LORazepam 1 MG TAB PO PRN (14:52)
[2021-11-17] MEDS ORDERED: ACETAMINOPHEN TAB 325 MG TAB PO PRN (14:52)
[2021-11-17] MEDS ORDERED: MAGNESIUM HYDROXIDE 2,400 MG/10 ML CUP PO PRN (14:52)
[2021-11-17] MEDS ORDERED: LORazepam 2 MG/ML INJ IM PRN (14:56)
[2021-11-17] MEDS: busPIRone HCl 5 MG TAB PO SCH ×2 (16:17→21:27)
--- NOTE | 2021-11-17 17:10 | P.HPMEDMHU ---
History of Present Illness H&P Date: 11/17/21 Chief Complaint: Depression Patient is a 21-year-old female with a past medical history of depression who presents to the ED with complaints of depression. Patient states that she is 2 months. She reports having thoughts of possibly harming herself or her baby. Patient was seen in the psych unit. Patient has no medical complaints. She denies any chest pain shortness of breath nausea or vomiting. Review of Systems 10 ROS reviewed and are negative except as noted in HPI Past Medical History Past Medical History: Thyroid Disorder Additional Past Medical History / Comment(s): migraines, delivered a baby 2 mos ago History of Any Multi-Drug Resistant Organisms: None Reported Past Surgical History: No Surgical Hx Reported Past Anesthesia/Blood Transfusion Reactions: No Reported Reaction Smoking Status: Vaper Medications and Allergies Home Medications Medication Instructions Recorded Confirmed Type lamoTRIgine [LaMICtal] 75 mg PO DAILY 07/13/21 11/17/21 History Norelgestromin/Ethin.estradiol 1 patch TRANSDERM MO 11/17/21 11/17/21 History [Xulane 150-35 Mcg/Day Patch] busPIRone HCL 15 mg PO TID 11/17/21 11/17/21 History traZODone HCL [Desyrel] 50 mg PO HS 11/17/21 11/17/21 History Allergies Allergy/AdvReac Type Severity Reaction Status Date / Time No Known Allergies Allergy Verified 11/17/21 12:12 Physical Exam Osteopathic Statement: *. No significant issues noted on an osteopathic structural exam other than those noted in the History and Physical/Consult. Vitals: Vital Signs Temp Pulse Pulse Resp BP BP Pulse Ox 11/17/21 15:48 98.8 F 65 18 117/65 11/17/21 11:47 60 16 135/60 98 11/17/21 11:19 99 F 80 16 111/73 100 Intake and Output 11/17/21 11/17/21 11/17/21 06:59 14:59 22:59 Other: Weight 97.069 kg 98.43 kg General: [Alert and oriented, well nourished, no acute distress]. Eye: [PERRL, EOMI, normal conjunctiva]. HENT: [Normocephalic, clear tympanic membranes, normal hearing, moist oral mucosa, no scleral icterus, no sinus tenderness]. Neck: [Supple, non-tender, no carotid bruits, no JVD, no lymphadenopathy]. Lungs: [Clear to auscultation and percussion, non-labored respiration]. Heart: [Normal rate, regular rhythm, no murmur, gallop or edema]. Abdomen: [Soft, non-tender, non-distended, normal bowel sounds, no masses]. Musculoskeletal: [Normal range of motion and strength, no tenderness or swelling]. Skin: [Skin is warm, dry and pink, no rashes or lesions]. Neurologic: [Awake, alert, and oriented X3, CN II-XII intact]. Psychiatric: [Cooperative, appropriate mood and affect]. Cranial Nerve Examination - Cranial Nerves Cranial Nerve II- Optic: Intact Cranial Nerve III- Oculomotor: Intact Cranial Nerve IV- Trochlear: Intact Cranial Nerve V- Trigeminal: Intact Cranial Nerve - Abducens: Intact Cranial Nerve VII- Facial: Intact Cranial Nerve VIII- Auditory: Intact Cranial Nerve IX- Glossopharyngeal: Intact Cranial Nerve X- Vagus: Intact Cranial Nerve XI- Accessory: Intact Cranial Nerve XII- Hypoglossal: Intact Results Labs: Abnormal Lab Results - Last 24 Hours (Table) 11/17/21 Range/Units 11:55 U Benzodiazepines Scrn Detected H (NotDetected) Thrombosis Risk Factor Assmnt - Choose All That Apply Any of the Below Risk Factors Present?: No Other Risk Factors: No Thrombosis Risk Factor Assessment Level: Very Low Risk Assessment and Plan Assessment: Overweight -Encourage weight loss 2 months -Stable Major depressive and -As per your psych management Thank you for the consult. Please do not hesitate to call with any questions
[2021-11-17] MEDS: traZODone HCL 50 MG TAB PO SCH (21:27)
[2021-11-18 08:08] LABS: Basophils % (A) 1 %; Eosinophils # (A) 0.1 k/uL (0-0.7); Eosinophils % (A) 2 %; HCT 30.2 % (34.0-46.0); HGB 9.6 gm/dL (11.4-16.0); Hypochromasia Slight; Lymphocytes # (A) 1.9 k/uL (1.0-4.8); Lymphocytes % (A) 32 %; MCH 26.2 pg (25.0-35.0); MCHC 31.8 g/dL (31.0-37.0); MCV 82.5 fL (80.0-100.0); Mean Platelet Volume 8.1; Monocytes # (A) 0.3 k/uL (0-1.0); Monocytes % (A) 4 %; Neutrophils # (A) 3.5 k/uL (1.3-7.7); Neutrophils % (A) 60 %; Platelet Count 269 k/uL (150-450); RBC 3.66 m/uL (3.80-5.40); RDW 13.9 % (11.5-15.5); WBC 5.9 k/uL (3.8-10.6)
[2021-11-18] MEDS: busPIRone HCl 5 MG TAB PO SCH ×3 (08:23→20:45)
[2021-11-18 08:34] LABS: ALT 21 U/L (4-34); AST 25 U/L (14-36); African American GFR (CKD) >90 (>60 ml/min/1.73 sqM); Albumin 3.7 g/dL (3.5-5.0); Alkaline Phosphatase 78 U/L (38-126); Anion Gap 4 mmol/L; Bilirubin, Delta 0.1 mg/dL (0.0-0.2); Bilirubin,Unconjugated 0.3 mg/dL (0.0-1.1); Blood Urea Nitrogen 9 mg/dL (7-17); Calcium 8.6 mg/dL (8.4-10.2); Carbon Dioxide 24 mmol/L (22-30); Chloride 109 mmol/L (98-107); Glucose 89 mg/dL (74-99); Non-African American GFR(CKD) 79 (>60 ml/min/1.73 sqM); Potassium 4.4 mmol/L (3.5-5.1); Sodium 137 mmol/L (137-145); Total Bilirubin 0.4 mg/dL (0.2-1.3); Total Protein 6.7 g/dL (6.3-8.2)
[2021-11-18] MEDS ORDERED: lamoTRIgine 25 MG TAB PO SCH (09:00)
[2021-11-18] MEDS ORDERED: ESCITALOPRAM 10 MG TAB PO STA (10:02)
--- NOTE | 2021-11-18 13:53 | P.HP ---
Psychiatric H&P - . H&P Date: 11/18/21 History & Physical: Allergies Allergy/AdvReac Type Severity Reaction Status Date / Time No Known Allergies Allergy Verified 11/17/21 12:12 Vital Signs Temp 98 F 11/18/21 06:45 Pulse 65 11/18/21 06:45 Resp 16 11/18/21 06:45 BP 111/49 11/18/21 08:28 Pulse Ox 98 11/17/21 11:47 FiO2 Intake & Output 11/17/21 11/18/21 11/18/21 18:59 06:59 18:59 Weight 98.43 kg Laboratory Last Values WBC 5.9 k/uL (3.8-10.6) 11/18/21 07:18 RBC 3.66 m/uL (3.80-5.40) L 11/18/21 07:18 Hgb 9.6 gm/dL (11.4-16.0) L 11/18/21 07:18 Hct 30.2 % (34.0-46.0) L 11/18/21 07:18 MCV 82.5 fL (80.0-100.0) 11/18/21 07:18 MCH 26.2 pg (25.0-35.0) 11/18/21 07:18 MCHC 31.8 g/dL (31.0-37.0) 11/18/21 07:18 RDW 13.9 % (11.5-15.5) 11/18/21 07:18 Plt Count 269 k/uL (150-450) 11/18/21 07:18 MPV 8.1 11/18/21 07:18 Neutrophils % 60 % 11/18/21 07:18 Lymphocytes % 32 % 11/18/21 07:18 Monocytes % 4 % 11/18/21 07:18 Eosinophils % 2 % 11/18/21 07:18 Basophils % 1 % 11/18/21 07:18 Neutrophils # 3.5 k/uL (1.3-7.7) 11/18/21 07:18 Lymphocytes # 1.9 k/uL (1.0-4.8) 11/18/21 07:18 Monocytes # 0.3 k/uL (0-1.0) 11/18/21 07:18 Eosinophils # 0.1 k/uL (0-0.7) 11/18/21 07:18 Basophils # 0.0 k/uL (0-0.2) 11/18/21 07:18 Hypochromasia Slight 11/18/21 07:18 Sodium 137 mmol/L (137-145) 11/18/21 07:18 Potassium 4.4 mmol/L (3.5-5.1) 11/18/21 07:18 Chloride 109 mmol/L (98-107) H 11/18/21 07:18 Carbon Dioxide 24 mmol/L (22-30) 11/18/21 07:18 Anion Gap 4 mmol/L 11/18/21 07:18 BUN 9 mg/dL (7-17) 11/18/21 07:18 Creatinine 1.01 mg/dL (0.52-1.04) 11/18/21 07:18 Est GFR (CKD-EPI)AfAm >90 (>60 ml/min/1.73 sqM) 11/18/21 07:18 Est GFR (CKD-EPI)NonAf 79 (>60 ml/min/1.73 sqM) 11/18/21 07:18 Glucose 89 mg/dL (74-99) 11/18/21 07:18 Calcium 8.6 mg/dL (8.4-10.2) 11/18/21 07:18 Total Bilirubin 0.4 mg/dL (0.2-1.3) 11/18/21 07:18 Conjugated Bilirubin 0.0 mg/dL (0.0-0.3) 11/18/21 07:18 Unconjugated Bilirubin 0.3 mg/dL (0.0-1.1) 11/18/21 07:18 Delta Bilirubin 0.1 mg/dL (0.0-0.2) 11/18/21 07:18 AST 25 U/L (14-36) 11/18/21 07:18 ALT 21 U/L (4-34) 11/18/21 07:18 Alkaline Phosphatase 78 U/L (38-126) 11/18/21 07:18 Total Protein 6.7 g/dL (6.3-8.2) 11/18/21 07:18 Albumin 3.7 g/dL (3.5-5.0) 11/18/21 07:18 TSH 5.480 mIU/L (0.465-4.680) H 11/18/21 07:18 Urine Opiates Screen Not Detected (NotDetected) 11/17/21 11:55 Ur Oxycodone Screen Not Detected (NotDetected) 11/17/21 11:55 Urine Methadone Screen Not Detected (NotDetected) 11/17/21 11:55 Ur Propoxyphene Screen Not Detected (NotDetected) 11/17/21 11:55 Ur Barbiturates Screen Not Detected (NotDetected) 11/17/21 11:55 U Tricyclic Antidepress Not Detected (NotDetected) 11/17/21 11:55 Ur Phencyclidine Scrn Not Detected (NotDetected) 11/17/21 11:55 Ur Amphetamines Screen Not Detected (NotDetected) 11/17/21 11:55 U Methamphetamines Scrn Not Detected (NotDetected) 11/17/21 11:55 U Benzodiazepines Scrn Detected (NotDetected) H 11/17/21 11:55 Urine Cocaine Screen Not Detected (NotDetected) 11/17/21 11:55 U Marijuana (THC) Screen Not Detected (NotDetected) 11/17/21 11:55 Coronavirus (PCR) Not Detected (Not Detectd) 11/17/21 12:45 11/18/21 13:53 IDENTIFYING DATA: This patient is a single, employed, 21-year-old female with significant history of depression who presents to the hospital with intrusive homicidal ideation. HISTORY OF PRESENT ILLNESS: The patient presented to the hospital on 11/17/2021, brought into the hospital on her own volition for increasing intrusive homicidal thoughts towards her 2 [id number] son. The patient reports that she began experiencing thoughts 4 weeks after giving to her first son. She reports that they initially were just thoughts of harming her child however they progressed to harming her fianc, her child, and herself. She vehemently denies any previous attempts to try to hurt anyone. She reports no suicidal ideation, intention, and/or plan. She reports no prior suicide attempts. Aside from these intrusive thoughts, the patient is not reporting any auditory or visual hallucinations. She is denying any paranoia or other delusions. She states that these thoughts are ego dystonic in nature and are causing her significant distress and grief. She is currently formula feeding her child. In regards to other mood symptoms, the patient denies any significant history of oskar or hypomania. She denies any periods of excessive energy, grandiosity, increased goal-directed activity, or mood lability. Despite recently giving , the patient reports that she has been sleeping well and has significant support from her nola and her family. The patient denies any auditory or visual hallucinations. She reports no paranoia or other delusions. PAST PSYCHIATRIC HISTORY: Patient states that she has been previously diagnosed with borderline personality disorder. She reports previous trials of Seroquel, Abilify, Zoloft, and Lexapro. She has had 1 prior psychiatric hospitalization in 2019. Patient currently follows with [facility] for therapy. Patient denies any history of suicide attempts in the past. PAST MEDICAL HISTORY: Thyroid disorder ALLERGIES: NO KNOWN DRUG ALLERGIES CHEMICAL DEPENDENCY HISTORY: Patient reports that she uses a vape daily. She reports no marijuana use, illicit drug use, and only rare alcohol use. FAMILY PSYCHIATRIC/SUBSTANCE USE HISTORY: Patient reports that her mother and father both have depression and anxiety. She also reports that her father abused alcohol. SOCIAL HISTORY: Patient was born and raised in [place]. She has been with her nola Vail for 8 years. They have a 2-month-old son named Ryley minaya. She currently lives with her nola and Ryley. 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 She reports no legal history. MENTAL STATUS EXAM: General Appearance: Patient appears to be stated age is alert, pleasant, and cooperative. Patient appears to have fair hygiene and grooming wearing a [employer] sweater with fair eye contact. Behavior:'s calmly seated without any agitated behavior. Speech: Patient's speech is fluent and nonpressured. Mood/Affect: Patient reports their mood is "okay", affect is congruent and euthymic Suicidality/Homicidality: Patient denies having any suicidal ideation however reports intrusive ego-dystonic homicidal thoughts. Perceptions: Patient denies any visual hallucinations and denies any auditory hallucinations Though content/process: There is no evidence of any delusional thought content and thought process is linear and goal-directed. Memory and concentration: AOX3, grossly intact for the purposes of this session. Can spell "WORLD" backwards Judgment and insight: Fair IMPRESSIONS: psychosis PLAN: -Patient is admitted under voluntary status to MHU for stabilization of psychiatric symptoms and safety. Patient signed adult voluntary form and medication consent and is placed in patient's chart. -Medications : Patient is formula feeding and not breast-feeding. Start Lexapro 10 mg by mouth daily for depression/anxiety Start Zyprexa 2.5 mg at bedtime for psychosis. -Ativan and Geodon PRN for agitation/aggression -Patient was informed of the risks, benefits and side effects of the medication and patient verbally consented to taking the medications. Patient signed med consent form and was placed in chart. -Internal Medicine consult to perform medical evaluation and physical. -SW on board for discharge planning. Encourage patient to participate in groups to work on coping skills.
[2021-11-18 14:38] LABS: Chol/HDL Ratio 1.94 Ratio; LDL Cholesterol,Calculated 44.1 mg/dL (0.0-131.0)
[2021-11-18] MEDS: traZODone HCL 50 MG TAB PO SCH (20:45)
[2021-11-18] MEDS: OLANZapine 2.5 MG TAB PO SCH (20:45)
[2021-11-19] MEDS: ESCITALOPRAM 20 MG TAB PO SCH (08:04)
[2021-11-19] MEDS: busPIRone HCl 5 MG TAB PO SCH ×3 (08:04→21:26)
--- NOTE | 2021-11-19 11:31 | P.PN ---
Subjective Progress Note Date: 11/19/21 Principal diagnosis: depression Subjective the patient says she is tolerating medication well. She is able to sleep is finding the groups helpful no problems with constipation no trouble with her bowels. She denies any psychotic symptoms no voices no illusions delus ions or paranoia. Objective pleasant alert good eye contact quick response times good sense of humor excellent ability to understand ideas attending groups making friends oriented to person place time and circumstance no evidence of psychotic symptoms. Assessment I think she is on excellent medicines to the maximum allowable dose is Lexapro backed up by BuSpar. She is sleeping better with the combination of trazodone and low-dose Zyprexa all of which is aimed at decreasing anxiety Plan: No change in medication Objective - Vital Signs Vital signs: Vital Signs Temp 97.6 F 11/19/21 06:54 Pulse 74 11/19/21 06:54 Resp 12 11/19/21 06:54 BP 106/54 11/19/21 06:54 Pulse Ox 98 11/17/21 11:47 FiO2 - Labs CBC & Chem 7: 11/18/21 07:18 11/18/21 07:18 Labs: Abnormal Lab Results - Last 24 Hours (Table) 11/18/21 Range/Units 07:18 HDL Cholesterol 68.50 H (40.00-60.00) mg/dL
[2021-11-19] MEDS: traZODone HCL 50 MG TAB PO SCH (21:26)
[2021-11-19] MEDS: OLANZapine 2.5 MG TAB PO SCH (21:26)
[2021-11-20 07:02] VITALS: RESP 16
[2021-11-20] MEDS: ESCITALOPRAM 20 MG TAB PO SCH (09:01)
[2021-11-20] MEDS: busPIRone HCl 5 MG TAB PO SCH ×3 (09:01→21:00)
--- NOTE | 2021-11-20 11:53 | P.PN ---
Subjective Progress Note Date: 11/20/21 Principal diagnosis: depression Subjective: The patient says that she has learned that she needs to be able to say no and to work on defending her identity and standing up for herself. She said she slept okay and is feeling more hopeful denies any suicidality and no psychotic symptoms. Objective excellent self care good energy good eye contact pleasant cooperative no evidence of psychosis affect shows a full range Assessment patient is tolerating meds and getting benefit from the counseling Plan no change in medications Objective - Vital Signs Vital signs: Vital Signs Temp 97.4 F L 11/20/21 06:45 Pulse 67 11/20/21 06:45 Resp 16 11/20/21 06:45 BP 94/55 11/20/21 06:45 Pulse Ox 98 11/17/21 11:47 FiO2 Intake & Output 11/19/21 11/20/21 11/20/21 18:59 06:59 18:59 Weight 98.1 kg - Labs CBC & Chem 7: 11/18/21 07:18 11/18/21 07:18
[2021-11-20] MEDS: traZODone HCL 50 MG TAB PO SCH (21:00)
[2021-11-20] MEDS: OLANZapine 2.5 MG TAB PO SCH (21:00)
[2021-11-21 06:52] VITALS: BP 105/56; PULSE 75; TEMP 97.5
[2021-11-21] MEDS: busPIRone HCl 5 MG TAB PO SCH (07:58)
[2021-11-21] MEDS: ESCITALOPRAM 20 MG TAB PO SCH (07:58)
--- NOTE | 2021-11-21 11:13 | P.DS ---
Providers Date of admission: 11/17/21 14:45 Expected date of discharge: 11/21/21 Attending physician: Brent Pabon MD Consults: 11/17/21 14:52 Consult Physician Routine Consulting Provider: Thuy Pizarro Consult Reason/Comments: Medical H&P Do you want consulting provider notified?: Yes Primary care physician: Stated None - Discharge Diagnosis(es) (1) Brief psychotic disorder with onset Current Visit: Yes Status: Acute Priority: High (2) depression Current Visit: Yes Status: Acute Priority: High Hospital Course: Admission HPI: This patient is a single, employed, 21-year-old female with significant history of depression who presents to the hospital with intrusive homicidal ideation. The patient presented to the hospital on 11/17/2021, brought into the hospital on her own volition for increasing intrusive homicidal thoughts towards her 2 [id number] son. The patient reports that she began experiencing thoughts 4 weeks after giving to her first son. She reports that they initially were just thoughts of harming her child however they progressed to harming her fianc, her child, and herself. She vehemently denies any previous attempts to try to hurt anyone. She reports no suicidal ideation, intention, and/or plan. She reports no prior suicide attempts. Aside from these intrusive thoughts, the patient is not reporting any auditory or visual hallucinations. She is denying any paranoia or other delusions. She states that these thoughts are ego dystonic in nature and are causing her significant distress and grief. She is currently formula feeding her child. In regards to other mood symptoms, the patient denies any significant history of oskar or hypomania. She denies any periods of excessive energy, grandiosity, increased goal-directed activity, or mood lability. Despite recently giving , the patient reports that she has been sleeping well and has significant s upport from her fianc and her family. The patient denies any auditory or visual hallucinations. She reports no paranoia or other delusions. PAST PSYCHIATRIC HISTORY: Patient states that she has been previously diagnosed with borderline personality disorder. She reports previous trials of Seroquel, Abilify, Zoloft, and Lexapro. She has had 1 prior psychiatric hospitalization in 2019. Patient currently follows with [facility] for therapy. Patient denies any history of suicide attempts in the past. Hospital course: Upon admission to the unit patient was initially presenting with ego dystonic homicidal ideation. Patient was however directable and agreeable to commence treatment. Patient got along well with other patients on the unit and followed unit protocol. Patient was compliant with the medications and denied any side effects throughout hospital course. Patient was started on a regimen of Lexapro and Zyprexa to address depression/anxiety as well as psychosis. The patient informed this provider that she is strictly formula feeding at this time. Patient spoke of her stressors and engaged in therapy both group and individual. Patient was also seen by medical team for history and physical exam. Over the course of hospitalization, the patient stated significant improvement in regards her target symptoms of homicidal ideation and intrusive thoughts. She tolerated her medication changes well and reported no significant side effects. On the day of discharge, the patient is not reporting any suicidal or homicidal ideation, intention, and/or plan. She is denying any auditory or visual hallucinations. She reports no intrusive thoughts of wanting to harm her child. The patient was also counseled at great length on utilizing crisis numbers were speaking to someone if the thoughts become overwhelming and that she should return to the hospital if she feels like she is an imminent risk of harming herself or others. The patient was counseled length on importance of medication adherence appropriate outpatient follow-up. Furthermore, the patient does not have significant history of substance use, however was counseled on abstaining from all substances including alcohol and marijuana. Prior to discharge, family meeting will be arranged by psychiatric social worker supervisor to answer questions and ensure safety. Mental status exam: General Appearance: Patient appears to be stated age is alert, pleasant, and cooperative. Patient is in no acute distress and has fair hygiene and grooming Behavior: Patient is calmly seated without any agitated behavior. Speech: Patient's speech is fluent and nonpressured. Mood/Affect: Patient reports their mood is "much better", affect is congruent and euthymic to bright and friendly. Suicidality/Homicidality: Patient denies having any suicidal or homicidal ideation intent or plan. Perceptions: Patient denies any auditory or visual hallucinations. Though content/process: There is no evidence of any delusional thought content and thought process is linear and goal-directed. Patient is future oriented. Memory and concentration: AOX3, grossly intact for the purposes of this session. Can spell "WORLD" backwards correctly. Judgment and insight: Improved Impression: psychosis depression Plan: -Continue with discharge today as patient has improved and stabilized psychia trically and is not currently an imminent threat to herself and/or others. -Continue medications: BuSpar 15 mg by mouth 3 times a day for anxiety Lexapro 20 mg by mouth daily for depression Trazodone 50 mg daily at bedtime for insomnia Zyprexa 2.5 mg daily at bedtime for psychosis -Patient was counseled on the need for medication compliance and appropriate follow-up at mental health and also primary care for medical issues. Patient verbalized understanding and agreed. -Social work to arrange for and conduct family meeting to ensure safety upon discharge and answer any questions/concerns. Social work also to arrange for patients follow up appointments with [facility] for psychiatric care along with follow up with primary care provider. -Patient counseled on abstaining from recreational drugs and marijuana and alcohol. Was informed/educated on the adverse effects on their physical and mental health. Patient verbally agreed and understood. -Patient was instructed to return to the hospital or seek immediate medical care if their psychiatric or medical symptoms do worsen or reoccur. -Psychoeducation and supportive therapy provided to patient. Risks and benefits of pharmacological treatment versus the risks and benefits of nontreatment weight and discussed. Informed consent discussion held. Common side effects of psychotropics discussed such as, but not limited to headache, GI disturbance, sexual dysfunction, movement disorders, sedation, and orthostatic hypotension. Life threatening and blackbox warnings of prescribed medications also discussed. Potential risks of operating a vehicle or heavy machinery discussed with patient at length. Advised on importance of compliance and a reliable and responsible manner. Patient advised to review FDA consumer labeling of all medications prior to taking. Patient verbalized understanding of potential risks, and agrees with current treatment plan. Patient advised to medically contact physician/emergency personnel if any acute changes in condition occur. Vital Signs Temp 97.5 F L 11/21/21 06:35 Pulse 75 11/21/21 06:35 Resp 16 11/21/21 06:35 BP 105/56 11/21/21 06:35 Pulse Ox 98 11/17/21 11:47 FiO2 Intake & Output 11/20/21 11/21/21 11/21/21 18:59 06:59 18:59 Weight 98.1 kg Laboratory Results WBC 5.9 k/uL (3.8-10.6) 11/18/21 07:18 RBC 3.66 m/uL (3.80-5.40) L 11/18/21 07:18 Hgb 9.6 gm/dL (11.4-16.0) L 11/18/21 07:18 Hct 30.2 % (34.0-46.0) L 11/18/21 07:18 MCV 82.5 fL (80.0-100.0) 11/18/21 07:18 MCH 26.2 pg (25.0-35.0) 11/18/21 07:18 MCHC 31.8 g/dL (31.0-37.0) 11/18/21 07:18 RDW 13.9 % (11.5-15.5) 11/18/21 07:18 Plt Count 269 k/uL (150-450) 11/18/21 07:18 MPV 8.1 11/18/21 07:18 Neutrophils % 60 % 11/18/21 07:18 Lymphocytes % 32 % 11/18/21 07:18 Monocytes % 4 % 11/18/21 07:18 Eosinophils % 2 % 11/18/21 07:18 Basophils % 1 % 11/18/21 07:18 Neutrophils # 3.5 k/uL (1.3-7.7) 11/18/21 07:18 Lymphocytes # 1.9 k/uL (1.0-4.8) 11/18/21 07:18 Monocytes # 0.3 k/uL (0-1.0) 11/18/21 07:18 Eosinophils # 0.1 k/uL (0-0.7) 11/18/21 07:18 Basophils # 0.0 k/uL (0-0.2) 11/18/21 07:18 Hypochromasia Slight 11/18/21 07:18 Sodium 137 mmol/L (137-145) 11/18/21 07:18 Potassium 4.4 mmol/L (3.5-5.1) 11/18/21 07:18 Chloride 109 mmol/L (98-107) H 11/18/21 07:18 Carbon Dioxide 24 mmol/L (22-30) 11/18/21 07:18 Anion Gap 4 mmol/L 11/18/21 07:18 BUN 9 mg/dL (7-17) 11/18/21 07:18 Creatinine 1.01 mg/dL (0.52-1.04) 11/18/21 07:18 Est GFR (CKD-EPI)AfAm >90 (>60 ml/min/1.73 sqM) 11/18/21 07:18 Est GFR (CKD-EPI)NonAf 79 (>60 ml/min/1.73 sqM) 11/18/21 07:18 Glucose 89 mg/dL (74-99) 11/18/21 07:[address] Glu mg/dL 101 11/18/21 07:18 Hemoglobin A1c 5.1 % (0.0-6.0) 11/18/21 07:18 Calcium 8.6 mg/dL (8.4-10.2) 11/18/21 07:18 Total Bilirubin 0.4 mg/dL (0.2-1.3) 11/18/21 07:18 Conjugated Bilirubin 0.0 mg/dL (0.0-0.3) 11/18/21 07:18 Unconjugated Bilirubin 0.3 mg/dL (0.0-1.1) 11/18/21 07:18 Delta Bilirubin 0.1 mg/dL (0.0-0.2) 11/18/21 07:18 AST 25 U/L (14-36) 11/18/21 07:18 ALT 21 U/L (4-34) 11/18/21 07:18 Alkaline Phosphatase 78 U/L (38-126) 11/18/21 07:18 Total Protein 6.7 g/dL (6.3-8.2) 11/18/21 07:18 Albumin 3.7 g/dL (3.5-5.0) 11/18/21 07:18 Triglycerides 102.00 mg/dL (0.00-149.00) 11/18/21 07:18 Cholesterol 133.00 mg/dL (0.00-200.00) 11/18/21 07:18 LDL Cholesterol, Calc 44.1 mg/dL (0.0-131.0) 11/18/21 07:18 VLDL Cholesterol, Calc 20.40 mg/dL (5.00-40.00) 11/18/21 07:18 HDL Cholesterol 68.50 mg/dL (40.00-60.00) H 11/18/21 07:18 Cholesterol/HDL Ratio 1.94 Ratio 11/18/21 07:18 TSH 5.480 mIU/L (0.465-4.680) H 11/18/21 07:18 Urine Opiates Screen Not Detected (NotDetected) 11/17/21 11:55 Ur Oxycodone Screen Not Detected (NotDetected) 11/17/21 11:55 Urine Methadone Screen Not Detected (NotDetected) 11/17/21 11:55 Ur Propoxyphene Screen Not Detected (NotDetected) 11/17/21 11:55 Ur Barbiturates Screen Not Detected (NotDetected) 11/17/21 11:55 U Tricyclic Antidepress Not Detected (NotDetected) 11/17/21 11:55 Ur Phencyclidine Scrn Not Detected (NotDetected) 11/17/21 11:55 Ur Amphetamines Screen Not Detected (NotDetected) 11/17/21 11:55 U Methamphetamines Scrn Not Detected (NotDetected) 11/17/21 11:55 U Benzodiazepines Scrn Detected (NotDetected) H 11/17/21 11:55 Urine Cocaine Screen Not Detected (NotDetected) 11/17/21 11:55 U Marijuana (THC) Screen Not Detected (NotDetected) 11/17/21 11:55 Coronavirus (PCR) Not Detected (Not Detectd) 11/17/21 12:45 Allergies Allergy/AdvReac Type Severity Reaction Status Date / Time No Known Allergies Allergy Verified 11/17/21 12:12 Patient Condition at Discharge: Stable Plan - Discharge Summary Discharge Rx Participant: No New Discharge Prescriptions: New busPIRone HCl [Buspar] 15 mg PO TID 30 Days tab Escitalopram [Lexapro] 20 mg PO DAILY 30 Days tab traZODone HCL [Desyrel] 50 mg PO HS 30 Days tab OLANZapine [ZyPREXA] 2.5 mg PO HS 30 Days tab Continue Norelgestromin/Ethin.estradiol [Xulane 150-35 Mcg/Day Patch] 1 patch TRANSDERM MO Discontinued lamoTRIgine [LaMICtal] 75 mg PO DAILY traZODone HCL [Desyrel] 50 mg PO HS busPIRone HCL 15 mg PO TID Discharge Medication List Norelgestromin/Ethin.estradiol [Xulane 150-35 Mcg/Day Patch] 1 patch TRANSDERM MO 11/17/21 [History] Escitalopram [Lexapro] 20 mg PO DAILY 30 Days tab 11/21/21 [Rx] OLANZapine [ZyPREXA] 2.5 mg PO HS 30 Days tab 11/21/21 [Rx] busPIRone HCl [Buspar] 15 mg PO TID 30 Days tab 11/21/21 [Rx] traZODone HCL [Desyrel] 50 mg PO HS 30 Days tab 11/21/21 [Rx] Follow up Appointment(s)/Referral(s): [facility] [Outside] - 11/22/21 1:30 pm (Pooja 11/22 @ 14:00 Suzanne Becker 11/30 @ 15:00) [facility] - 1 Week Patient Instructions/Handouts: Brief Psychotic Disorder (DC) Activity/Diet/Wound Care/Special Instructions: Avoid the use of street drugs and alcohol. Take all prescriptions as prescribed. When you are in need of refills on your medications, please contact your medical provider and/or outpatient psychiatrist to have this done. Please go to scheduled outpatient appointment for aftercare treatment. If symptoms return or become worse, call the crisis line at and/or go to the nearest emergency room for evaluation. Discharge Disposition: HOME SELF-CARE
== END 2021-11-21 11:32 | disposition home or self-care (01) | DRG 776 ==
LOC: EC 11:09 → 3MHU 14:45
PROVIDERS: ADMIT Psychiatry & Neurology Psychiatry; ATTEND Psychiatry & Neurology Psychiatry
DX: O99.345 Other mental disorders complicating the puerperium (principal); F60.3 Borderline personality disorder; F53.1 Puerperal psychosis; F53.0 Postpartum depression; F41.9 Anxiety disorder, unspecified; G47.00 Insomnia, unspecified; R45.850 Homicidal ideations; Z79.899 Other long term (current) drug therapy; F17.290 Nicotine dependence, other tobacco product, uncomplicated; E66.3 Overweight; Z68.37 Body mass index [BMI] 37.0-37.9, adult; E07.9 Disorder of thyroid, unspecified; G43.909 Migraine, unspecified, not intractable, without status migrainosus; Z20.822 Contact with and (suspected) exposure to COVID-19
CPT/HCPCS: 80053; 80061; 80306; 82075; 82248; 83036; 84443; 85025; 87635; 99285

== ENCOUNTER → 2022-08-22 | Outpatient (CLI) | payer OTHER ==
[2022-08-23 02:33] LABS: HCT 36.7 % (37.2-46.3); HGB 11.5 g/dL (12.0-15.0); MCH 26.1 pg (27.0-32.0); MCHC 31.3 g/dL (32.0-37.0); MCV 83.2 fL (80.0-97.0); Mean Platelet Volume 11.2 fL (9.5-12.2); NRBC Per 100 WBC 0 /100 WBCS (0.0-0.0); Platelet Count 308 X 10*3/uL (140-440); RBC 4.41 X 10*6/uL (4.10-5.20); RDW 14.3 % (11.5-14.5)
[2022-08-23 02:50] LABS: % Iron Saturation 15.76 (12.00-45.00); ALT 22 U/L (8-44); AST 20 U/L (13-35); African American GFR (CKD) 115.7 (60.0-200.0); Albumin 4.3 g/dL (3.8-4.9); Albumin/Globulin Ratio 1.37 (1.60-3.17); Alkaline Phosphatase 86 U/L (41-126); BUN/Creat Ratio 17.65 Ratio (12.00-20.00); Blood Urea Nitrogen 14.6 mg/dL (9.0-27.0); Calcium 9.8 mg/dL (8.7-10.3); Carbon Dioxide 23.8 mmol/L (20.0-27.5); Chloride 104 mmol/L (96-109); Chol/HDL Ratio 1.69 Ratio; Ferritin 29.2 ng/mL (10.0-291.0); Globulin 3.2 g/dL (1.6-3.3); Glucose 93 mg/dL (70-110); Iron 66 ug/dL (50-170); LDL Cholesterol,Calculated 42.5 mg/dL (0.0-131.0); Non-African American GFR(CKD) 99.8 (60.0-200.0); Potassium 3.7 mmol/L (3.5-5.5); Sodium 140 mmol/L (135-145); Total Iron Binding Capacity 420 ug/dL (228-460); Total Protein 7.5 g/dL (6.2-8.2)
== END | disposition home or self-care (01) ==
LOC: LABWHC1 16:05
PROVIDERS: ATTEND Physician Assistant Medical
DX: Z13.1 Encounter for screening for diabetes mellitus (principal); Z13.220 Encounter for screening for lipoid disorders; E06.3 Autoimmune thyroiditis; R59.0 Localized enlarged lymph nodes; R53.83 Other fatigue
CPT/HCPCS: 36415; 80053; 80061; 82306; 82607; 82728; 82746; 83036; 83540; 83550; 84439; 84443; 84481; 85027

== ENCOUNTER → 2022-09-12 | Outpatient (CLI) | payer OTHER ==
--- NOTE | 2022-09-13 07:23 | US ---
EXAMINATION TYPE: US thyroid st tissue head/neck DATE OF EXAM: 09/12/2022 COMPARISON: NONE CLINICAL INDICATION: Female, 21 years old with history of R59.0 LOCALIZED ENLARGED LYMPH NODES; Goite r, palpable lump left lateral neck GLAND SIZE: Right Lobe: 4.2 x 1.5 x 1.9 cm Overall Parenchyma: heterogenous Left Lobe: 4.2 x 1.5 x 1.8 cm Overall Parenchyma: heterogenous Isthmus Thickness: 0.3 cm NODULES RIGHT: # of nodules measured on right: 0 LEFT: # of nodules measured on left: 0 ISTHMUS: # of nodules measured in the isthmus: 0 Bilateral neck scanned, lymph node with fatty hilum right lateral neck= 2.2 x 0.5 x 0.6 cm/ Lymph no de with small fatty hilum= 1.5 x 0.4 x 0.5 cm/ Heterogeneous thyroid without evidence of nodules. IMPRESSION: 1. Heterogenous thyroid gland with increased vascularity correlate with serum markers. 2. Nonspecific nonenlarged lymph nodes in the left neck.
== END | disposition home or self-care (01) ==
LOC: RADUSWWP 15:39
PROVIDERS: ATTEND Family Medicine
DX: R59.0 Localized enlarged lymph nodes (principal)
CPT/HCPCS: 76536

== ENCOUNTER → 2023-07-31 | Outpatient (CLI) | payer OTHER ==
--- NOTE | 2023-07-31 19:44 | US ---
EXAMINATION TYPE: US thyroid st tissue head/neck DATE OF EXAM: 07/31/2023 COMPARISON: 09/12/2022 CLINICAL INDICATION: Female, 22 years old with history of E06.3 AUTOIMMUNE THYROIDITIS; Gonzalo's GLAND SIZE: Right Lobe: 4.8 x 1.5 x 1.6 cm Overall Parenchyma: homogeneous Left Lobe: 4.7 x 1.8 x 1.7 cm Overall Parenchyma: homogeneous Isthmus Thickness: .3 cm NODULES RIGHT: # of nodules measured on right: 0 LEFT: # of nodules measured on left: 0 ISTHMUS: # of nodules measured in the isthmus: 0 Bilateral neck scanned, no evidence of lymphadenopathy. IMPRESSION: No thyroid nodules identified.
== END | disposition home or self-care (01) ==
LOC: RADUSWWP 16:32
PROVIDERS: ATTEND Family Medicine
DX: E06.3 Autoimmune thyroiditis (principal)
CPT/HCPCS: 76536

== ENCOUNTER 2023-10-02 23:54 | Emergency (ER) | payer OTHER ==
[2023-10-03 00:09] VITALS: TEMP 98.5
[2023-10-03 00:24] LABS: Basophils % (A) 0 %; Eosinophils # (A) 0.3 k/uL (0-0.7); Eosinophils % (A) 3 %; HCT 36.8 % (34.0-46.0); HGB 11.8 gm/dL (11.4-16.0); Lymphocytes % (A) 28 %; MCH 26.7 pg (25.0-35.0); MCHC 32.1 g/dL (31.0-37.0); MCV 83.2 fL (80.0-100.0); Mean Platelet Volume 8.4; Monocytes # (A) 0.5 k/uL (0-1.0); Monocytes % (A) 5 %; Neutrophils # (A) 6.7 k/uL (1.3-7.7); Neutrophils % (A) 63 %; Platelet Count 303 k/uL (150-450); RBC 4.42 m/uL (3.80-5.40); RDW 13.4 % (11.5-15.5); WBC 10.6 k/uL (3.8-10.6)
--- NOTE | 2023-10-03 00:35 | ED ---
General Adult HPI - General Chief complaint: Abdominal Pain Stated complaint: Left sided abd pain Time Seen by Provider: 10/03/23 00:03 Source: patient Mode of arrival: ambulatory Limitations: no limitations - History of Present Illness Initial comments: Dictation was produced using [employer] dictation software. please excuse any grammatical, word or spelling errors. Chief Complaint: 23-year-old female with few days of left-sided abdominal pain History of Present Illness: 23-year-old female presents to the emergency department left-sided abdominal pain. Patient states that her pain has been ongoing for the last couple days. States it is left upper quadrant. Denies any recent viral infections. No known history of ovarian cyst. Denies any symptoms with eating. States that the pain feels rather severe affecting her activities of daily living. Denies any fever or constitutional symptoms. The ROS documented in this emergency department record has been reviewed and confirmed by me. Those systems with pertinent positive or negative responses have been documented in the HPI. All other systems are other negative and/or noncontributory. - Related Data Home Medications Medication Instructions Recorded Confirmed Norelgestromin/Ethin.estradiol 1 patch TRANSDERM MO 11/17/21 11/17/21 [Xulane 150-35 Mcg/Day Patch] Previous Rx's Medication Instructions Recorded Escitalopram [Lexapro] 20 mg PO DAILY 30 Days tab 11/21/21 OLANZapine [ZyPREXA] 2.5 mg PO HS 30 Days tab 11/21/21 busPIRone HCl [Buspar] 15 mg PO TID 30 Days tab 11/21/21 traZODone HCL [Desyrel] 50 mg PO HS 30 Days tab 11/21/21 Allergies Allergy/AdvReac Type Severity Reaction Status Date / Time No Known Allergies Allergy Verified 10/03/23 00:09 Review of Systems ROS Statement: Those systems with pertinent positive or pertinent negative responses have been documented in the HPI. ROS Other: All systems not noted in ROS Statement are negative. Past Medical History Past Medical History: Thyroid Disorder Additional Past Medical History / Comment(s): migraines, delivered a baby 2 mos ago History of Any Multi-Drug Resistant Organisms: None Reported Past Surgical History: No Surgical Hx Reported Past Anesthesia/Blood Transfusion Reactions: No Reported Reaction Past Psychological History: Anxiety, Bipolar, Depression Smoking Status: Vaper Past Alcohol Use History: Rare Past Drug Use History: None Reported General Exam - General Exam Comments Initial Comments: PHYSICAL EXAM: General Impression: Alert and oriented x3, not in acute distress HEENT: Normocephalic atraumatic, extra-ocular movements intact, pupils equal and reactive to light bilaterally, mucous membranes moist. Cardiovascular: Heart regular rate and rhythm Chest: Able to complete full sentences, no retractions, no tachypnea Abdomen: abdomen soft, palpatory tenderness to the left abdomen non-distended, no organomegaly Musculoskeletal: Pulses present and equal in all extremities, no peripheral edema Motor: no focal deficits noted Neurological: CN II-XII grossly intact, no focal motor or sensory deficits noted Skin: Intact with no visualized rashes Psych: Normal affect and mood Limitations: no limitations Course Vital Signs 10/03/23 10/03/23 10/03/23 00:07 01:30 03:00 Temperature 98.5 F Pulse Rate 76 85 83 Respiratory 18 18 16 Rate Blood Pressure 141/90 122/67 111/56 O2 Sat by Pulse 100 100 98 Oximetry 10/03/23 05:00 Temperature Pulse Rate 68 Respiratory 16 Rate Blood Pressure 116/69 O2 Sat by Pulse 99 Oximetry Medical Decision Making - Medical Decision Making Was pt. sent in by a medical professional or institution (, PA, MARKETING AND PROMOTIONS MANAGER, urgent care, hospital, or senior care...) When possible be specific @ -No Did you speak to anyone other than the patient for history (EMS, parent, family, police, friend...)? What history was obtained from this source @ -No Did you review nursing and triage notes (agree or disagree)? Why? @ -I reviewed and agree with nursing and triage notes Were old charts reviewed (outside hosp., previous admission, EMS record, old EKG, old radiological studies, urgent care reports/EKG's, senior care records)? Report findings @ -No old charts were reviewed Differential Diagnosis (chest pain, altered mental status, abdominal pain women, abdominal pain men, vaginal bleeding, musculoskeletal, weakness, fever, dyspnea, syncope, headache, dizziness, GI bleed, back pain, seizure, CVA, palpatations, mental health)? @ -Differential Abdominal Pain Women: Appendicitis, Cholecystitis, diverticulosis, ischemic bowel, pancreatitis, hepatitis, UTI, gastroenteritis, AAA, incarcerated hernia, bowel obstruction, constipation, inflammatory bowel, hepatitis, peptic ulcer disease, splenic infarction, perforated viscus, vulvitis, ovarian torsion, PID, kidney stone, placenta abruption, this is not meant to be an all-inclusive list EKG interpreted by me (3pts min.). @ -None done X-rays interpreted by me (1pt min.). @ -None done CT interpreted by me (1pt min.). @ -CT scan of the abdomen pelvis shows no acute processes. U/S interpreted by me (1pt. min.). @ -None done What testing was considered but not performed or refused? (CT, X-rays, U/S, labs)? Why? @ -None What meds were considered but not given or refused? Why? @ -None Did you discuss the management of the patient with other professionals (professionals i.e. , PA, MARKETING AND PROMOTIONS MANAGER, lab, RT, psych nurse, social work instructor, electrical instrument technician, teacher, correction officer, upper caser)? Give summary @ -No Was smoking cessation discussed for >3mins.? @ -No Was critical care preformed (if so, how long)? @ -No Were there social determinants of health that impacted care today? How? (Homelessness, low income, unemployed, alcoholism, drug addiction, transportation, low edu. Level, literacy, decrease access to med. care, shelter, re hab)? @ -No Was there de-escalation of care discussed even if they declined (Discuss DNR or withdrawal of care, Hospice)? DNR status @ -No What co-morbidities impacted this encounter? (DM, HTN, Smoking, COPD, CAD, Cancer, CVA, ARF, Chemo, Hep., AIDS, mental health diagnosis, sleep apnea, morbid obesity)? @ -None Was patient admitted / discharged? Hospital course, mention meds given and route, prescriptions, significant lab abnormalities, going to OR and other pertinent info. @ -23-year-old female presents to the emergency department with left abdominal pain. Vital signs stable. Patient well-appearing at the bedside. She does have some reproducible palpatory tenderness to the left upper abdomen. Laboratory evaluation is unremarkable. Patient does not have any urinary symptoms. CT is negative. Patient observed emergency department for several hours. Reevaluated bedside at 6:00 AM found to be in stable medical condition. Patient discharged. Undiagnosed new problem with uncertain prognosis? @ -No Drug Therapy requiring intensive monitoring for toxicity (Heparin, Nitro, Insu melanie, Cardizem)? @ -No Were any procedures done? @ -No Diagnosis/symptom? Acute, or Chronic, or Acute on Chronic? Uncomplicated (without systemic symptoms) or Complicated (systemic symptoms)? @ -Abdominal pain, no obvious source, no high risk features Side effects of treatment? @ -No Exacerbation, Progression, or Severe Exacerbation? @ -No Poses a threat to life or bodily function? How? (Chest pain, [place], [place], pneumonia, PE, COPD, DKA, ARF, appy, cholecystitis, CVA, Diverticulitis, Homicidal, Suicidal, threat to staff... and all critical care pts) @ -No - Lab Data Result diagrams: 10/03/23 00:13 10/03/23 00:13 Lab Results 10/03/23 10/03/23 10/03/23 Range/Units 00:13 00:13 00:41 WBC 10.6 (3.8-10.6) k/uL RBC 4.42 (3.80-5.40) m/uL Hgb 11.8 (11.4-16.0) gm/dL Hct 36.8 (34.0-46.0) % MCV 83.2 (80.0-100.0) fL MCH 26.7 (25.0-35.0) pg MCHC 32.1 (31.0-37.0) g/dL RDW 13.4 (11.5-15.5) % Plt Count 303 (150-450) k/uL MPV 8.4 Neutrophils % 63 % Lymphocytes % 28 % Monocytes % 5 % Eosinophils % 3 % Basophils % 0 % Neutrophils # 6.7 (1.3-7.7) k/uL Lymphocytes # 3.0 (1.0-4.8) k/uL Monocytes # 0.5 (0-1.0) k/uL Eosinophils # 0.3 (0-0.7) k/uL Basophils # 0.0 (0-0.2) k/uL Sodium 138 (137-145) mmol/L Potassium 3.5 (3.5-5.1) mmol/L Chloride 105 (98-107) mmol/L Carbon Dioxide 27 (22-30) mmol/L Anion Gap 6 mmol/L BUN 16 (7-17) mg/dL Creatinine 0.74 (0.52-1.04) mg/dL Est GFR (CKD-EPI)AfAm >90 (>60 ml/min/1.73 sqM) Est GFR (CKD-EPI)NonAf >90 (>60 ml/min/1.73 sqM) Glucose 93 (74-99) mg/dL Calcium 8.7 (8.4-10.2) mg/dL Total Bilirubin 0.5 (0.2-1.3) mg/dL AST 23 (14-36) U/L ALT 20 (4-34) U/L Alkaline Phosphatase 83 (38-126) U/L Total Protein 7.3 (6.3-8.2) g/dL Albumin 4.0 (3.5-5.0) g/dL Lipase 74 (23-300) U/L Urine Color Light Yellow Urine Appearance Cloudy H (Clear) Urine pH 6.0 (5.0-8.0) Ur Specific [place] 1.019 (1.001-1.035) Urine Protein Negative (Negative) Urine Glucose (UA) Negative (Negative) Urine Ketones Negative (Negative) Urine Blood Large H (Negative) Urine Nitrite Negative (Negative) Urine Bilirubin Negative (Negative) Urine Urobilinogen <2.0 (<2.0) mg/dL Ur Leukocyte Esterase Trace H (Negative) Urine RBC >182 H (0-5) /hpf Urine WBC 9 H (0-5) /hpf Ur Squamous Epith Cells 11 H (0-4) /hpf Urine Bacteria Occasional H (None) /hpf Urine Mucus Few H (None) /hpf Urine HCG, Qual (Not Detectd) 10/03/23 Range/Units 00:41 WBC (3.8-10.6) k/uL RBC (3.80-5.40) m/uL Hgb (11.4-16.0) gm/dL Hct (34.0-46.0) % MCV (80.0-100.0) fL MCH (25.0-35.0) pg MCHC (31.0-37.0) g/dL RDW (11.5-15.5) % Plt Count (150-450) k/uL MPV Neutrophils % % Lymphocytes % % Monocytes % % Eosinophils % % Basophils % % Neutrophils # (1.3-7.7) k/uL Lymphocytes # (1.0-4.8) k/uL Monocytes # (0-1.0) k/uL Eosinophils # (0-0.7) k/uL Basophils # (0-0.2) k/uL Sodium (137-145) mmol/L Potassium (3.5-5.1) mmol/L Chloride (98-107) mmol/L Carbon Dioxide (22-30) mmol/L Anion Gap mmol/L BUN (7-17) mg/dL Creatinine (0.52-1.04) mg/dL Est GFR (CKD-EPI)AfAm (>60 ml/min/1.73 sqM) Est GFR (CKD-EPI)NonAf (>60 ml/min/1.73 sqM) Glucose (74-99) mg/dL Calcium (8.4-10.2) mg/dL Total Bilirubin (0.2-1.3) mg/dL AST (14-36) U/L ALT (4-34) U/L Alkaline Phosphatase (38-126) U/L Total Protein (6.3-8.2) g/dL Albumin (3.5-5.0) g/dL Lipase (23-300) U/L Urine Color Urine Appearance (Clear) Urine pH (5.0-8.0) Ur Specific [place] (1.001-1.035) Urine Protein (Negative) Urine Glucose (UA) (Negative) Urine Ketones (Negative) Urine Blood (Negative) Urine Nitrite (Negative) Urine Bilirubin (Negative) Urine Urobilinogen (<2.0) mg/dL Ur Leukocyte Esterase (Negative) Urine RBC (0-5) /hpf Urine WBC (0-5) /hpf Ur Squamous Epith Cells (0-4) /hpf Urine Bacteria (None) /hpf Urine Mucus (None) /hpf Urine HCG, Qual Not Detected (Not Detectd) Disposition Clinical Impression: Abdominal pain Disposition: HOME SELF-CARE Condition: Good Instructions (If sedation given, give patient instructions): Abdominal Pain (ED) Is patient prescribed a controlled substance at d/c from ED?: No Referrals: Truong Guthrie MD [Primary Care Provider] - 1-2 days Time of Disposition: 06:08
[2023-10-03 01:02] LABS: ALT 20 U/L (4-34); AST 23 U/L (14-36); African American GFR (CKD) >90 (>60 ml/min/1.73 sqM); Alkaline Phosphatase 83 U/L (38-126); Anion Gap 6 mmol/L; Blood Urea Nitrogen 16 mg/dL (7-17); Calcium 8.7 mg/dL (8.4-10.2); Carbon Dioxide 27 mmol/L (22-30); Chloride 105 mmol/L (98-107); Glucose 93 mg/dL (74-99); Lipase 74 U/L (23-300); Non-African American GFR(CKD) >90 (>60 ml/min/1.73 sqM); Potassium 3.5 mmol/L (3.5-5.1); Sodium 138 mmol/L (137-145); Total Bilirubin 0.5 mg/dL (0.2-1.3); Total Protein 7.3 g/dL (6.3-8.2)
[2023-10-03 01:04] LABS: Appearance,Urine Cloudy (Clear); Bacteria,Urine Occasional /hpf; Bilirubin,Urine Negative (Negative); Blood,Urine Large (Negative); Color,Urine Light Yellow; Glucose,Urine (UA) Negative (Negative); Ketones,Urine Negative (Negative); Leukocyte Esterase,Urine Trace (Negative); Mucus,Urine Few /hpf; Nitrite,Urine Negative (Negative); Protein,Urine Negative (Negative); RBC,Urine >182 /hpf (0-5); Specific Gravity,Urine 1.019 (1.001-1.035); Squamous Epithelial Cell,Urine 11 /hpf (0-4); Urobilinogen,Urine <2.0 mg/dL (<2.0); WBC,Urine 9 /hpf (0-5)
[2023-10-03] MEDS: MORPHINE SULFATE 4 MG/ML SYRINGE IVP STA (02:48)
[2023-10-03 03:05] VITALS: RESP 16
[2023-10-03 05:08] VITALS: BP 116/69; PULSE 68
[2023-10-03] MEDS: HYDROmorphone 0.5 MG/0.5 ML SYRINGE IVP STA (05:17)
== END 2023-10-03 06:05 | disposition home or self-care (01) ==
LOC: EC 23:54
DX: R10.12 Left upper quadrant pain (principal); F17.290 Nicotine dependence, other tobacco product, uncomplicated
CPT/HCPCS: 36415; 80053; 83690; 85025; 81001; 81025; 74177; 99284; 96374; 96375; J2270; J1170; Q9967

== ENCOUNTER → 2024-07-31 | Outpatient (CLI) | payer OTHER ==
--- NOTE | 2024-07-31 13:03 | US ---
EXAMINATION TYPE: US thyroid st tissue head/neck DATE OF EXAM: 07/31/2024 COMPARISON: US(07/31/2023) CLINICAL INDICATION: Female, 23 years old with history of E06.3 AUTOIMMUNE THYROIDITIS; F/U TECHNIQUE: Grayscale and color Doppler imaging of the thyroid gland. FINDINGS: GLAND SIZE: Right Lobe: 4.7x1.6x1.6cm Overall Parenchyma: homogeneous Left Lobe: 4.5x1.4x1.7cm Overall Parenchyma: homogeneous Isthmus Thickness: 0.3cm NODULES RIGHT: # of nodules measured on right: 0 LEFT: # of nodules measured on left: 0 ISTHMUS: # of nodules measured in the isthmus: 0 Bilateral neck scanned, no evidence of lymphadenopathy. Persistent homogeneous normal size thyroid with no suspicious nodules IMPRESSION: As above. Highest TI-RADS level nodule reported: 2017 ACR TI-RADS LEVEL: TI-RADS 1 - BENIGN: No FNA TI-RADS assessment score and recommendation for follow-up based on appropriate scoring and treatment protocols. TR3: If nodule size is ? 2.5 cm, FNA is recommended. If nodule size is ? 1.5 cm, follow-up imaging at 1, 3, and 5 years is recommended. TR4: If nodule size is ? 1.5 cm, FNA is recommended. If nodule size is ? 1.0 cm, follow-up imaging at 1, 2, 3, and 5 years is recommended. TR5: If nodule size is ? 1.0 cm, FNA is recommended. If nodule size is ? 0.5 cm, annual follow-up for up to 5 years is recommended. [email or web address] [facility], , 07/31/2024 1:01 PM
== END | disposition home or self-care (01) ==
LOC: RADUSWWP 12:36
PROVIDERS: ATTEND Family Medicine
DX: E06.3 Autoimmune thyroiditis (principal)
CPT/HCPCS: 76536

== ENCOUNTER 2024-09-18 15:34 | Emergency (ER) | payer OTHER ==
[2024-09-18 16:05] VITALS: TEMP 98.3
[2024-09-18] MEDS: KETOROLAC 15 MG/ML 1 ML VIAL IM STA (16:58)
[2024-09-18] MEDS: ORPHENADRINE 30 MG/ML 2 ML VIAL IM STA (17:06)
[2024-09-18] MEDS: DEXAMETHASONE SOD PHOSPHATE 10 MG/ML 1 ML VIAL IM STA (17:06)
[2024-09-18] MEDS: LIDOCAINE 4% PATCH TOPICAL ONE (17:10)
--- NOTE | 2024-09-18 17:39 | XR ---
EXAMINATION TYPE: XR lumbar spine 2 or 3V DATE OF EXAM: 09/18/2024 CLINICAL HISTORY: pain TECHNIQUE: Three views of the lumbar spine are submitted. COMPARISON: CT abdomen pelvis 10/03/2023 FINDINGS: There are 5 lumbar type vertebral bodies identified. The lumbar spine shows satisfactory alignment wi thout evidence of acute fracture or dislocation. Vertebral body heights are within normal limits. D isc spaces are within normal limits. The overlying soft tissue appears unremarkable. IMPRESSION: No acute fracture or dislocation is seen in the lumbar spine. [facility], , 09/18/2024 5:36 PM
--- NOTE | 2024-09-18 18:31 | ED ---
General Adult HPI - General Chief complaint: Neuro Symptoms/Deficit Stated complaint: B/L Leg Numbness/Pain Time Seen by Provider: 09/18/24 16:38 Source: patient Mode of arrival: ambulatory Limitations: no limitations - History of Present Illness Initial comments: 23-year-old female presenting with chief complaint of lower back pain and numbness and tingling in the bilateral legs. This has been ongoing for about 2 weeks. She denies any injury or trauma. She reports that the symptoms are worse after sitting for long periods of time. She got done today with orientation for a new job and when she went to stand up she could not feel her legs and was having difficulty walking because of that so she came here. She is having no loss of bowel or bladder control or saddle paresthesia. She is not having pain at this time. Denies . No urinary symptoms. - Related Data Home Medications Medication Instructions Recorded Confirmed Norelgestromin/Ethin.estradiol 1 patch TRANSDERM MO 11/17/21 11/17/21 [Xulane 150-35 Mcg/Day Patch] Previous Rx's Medication Instructions Recorded Escitalopram [Lexapro] 20 mg PO DAILY 30 Days tab 11/21/21 OLANZapine [ZyPREXA] 2.5 mg PO HS 30 Days tab 11/21/21 busPIRone HCl [Buspar] 15 mg PO TID 30 Days tab 11/21/21 traZODone HCL [Desyrel] 50 mg PO HS 30 Days tab 11/21/21 Cyclobenzaprine [Flexeril] 10 mg PO TID PRN #15 tab 09/18/24 Allergies Allergy/AdvReac Type Severity Reaction Status Date / Time No Known Allergies Allergy Verified 09/21/24 08:03 Review of Systems ROS Statement: Those systems with pertinent positive or pertinent negative responses have been documented in the HPI. ROS Other: All systems not noted in ROS Statement are negative. Past Medical History Past Medical History: Thyroid Disorder Additional Past Medical History / Comment(s): migraines, delivered a baby 2 mos ago. [email or web address] History of Any Multi-Drug Resistant Organisms: None Reported Past Surgical History: No Surgical Hx Reported Past Anesthesia/Blood Transfusion Reactions: No Reported Reaction Past Psychological History: Anxiety, Bipolar, Depression Smoking Status: Vaper Past Alcohol Use History: Rare Past Drug Use History: None Reported General Exam Limitations: no limitations General appearance: alert, in no apparent distress Head exam: Present: atraumatic, normocephalic, normal inspection Eye exam: Present: normal appearance, EOMI Neck exam: Present: normal inspection. Absent: meningismus Respiratory exam: Absent: respiratory distress Cardiovascular Exam: Present: regular rate Back exam: Present: normal inspection. Absent: tenderness Neurological exam: Present: alert, oriented X3 Psychiatric exam: Present: normal affect, normal mood Skin exam: Present: warm, dry, normal color Course Vital Signs 09/18/24 09/18/24 16:02 20:10 Temperature 98.3 F Pulse Rate 87 89 Respiratory 16 20 Rate Blood Pressure 125/89 131/86 O2 Sat by Pulse 98 99 Oximetry Medical Decision Making - Medical Decision Making Was pt. sent in by a medical professional or institution (DEANNE Barraza, FED[employer]IATION COMMISSIONER, urgent care, hospital, or skilled nursing...) When possible be specific @ -No Did you speak to anyone other than the patient for history (EMS, parent, family, police, friend...)? What history was obtained from this source @ -No Did you review nursing and triage notes (agree or disagree)? Why? @ -I reviewed and agree with nursing and triage notes Were old charts reviewed (outside hosp., previous admission, EMS record, old EKG, old radiological studies, urgent care reports/EKG's, skilled nursing records)? Report findings @ -No old charts were reviewed Differential Diagnosis (chest pain, altered mental status, abdominal pain women, abdominal pain men, vaginal bleeding, weakness, fever, dyspnea, syncope, headache, dizziness, GI bleed, back pain, seizure, CVA, palpatations, mental health, musculoskeletal)? @ - MDM Differential Back Pain: Strain, zoster, cauda equina syndrome, epidural abscess, vertebral osteomyelitis, discitis, fracture, subluxation, disc herniation, DJD, spinal stenosis, dissection, AAA, pancreatitis, peptic ulcer disease, pyelonephritis, kidney stone… this is not meant to be an all-inclusive list. EKG interpreted by me (3pts min.). @ -As above X-rays interpreted by me (1pt min.). @ -No acute fracture or dislocation is seen in the lumbar spine CT interpreted by me (1pt min.). @ -None done U/S interpreted by me (1pt. min.). @ -None done What testing was considered but not performed or refused? (CT, X-rays, U/S, labs)? Why? @ -None What meds were considered but not given or refused? Why? @ -None Did you discuss the management of the patient with other professionals (professionals i.e. , PA, FED[employer] MEDIATION COMMISSIONER, lab, RT, psych nurse, manager social work, podiatry assistant, teacher, canine enforcement officer, case management manager)? Give summary @ -No Was smoking cessation discussed for >3mins.? @ -No Was critical care preformed (if so, how long)? @ -No Were there social determinants of health that impacted care today? How? (Homelessness, low income, unemployed, alcoholism, drug addiction, transportation, low edu. Level, literacy, decrease access to med. care, care home, rehab)? @ -No Was there de-escalation of care discussed even if they declined (Discuss DNR or withdrawal of care, Hospice)? DNR status @ -No What co-morbidities impacted this encounter? (DM, HTN, Smoking, COPD, CAD, Cancer, CVA, ARF, Chemo, Hep., AIDS, mental health diagnosis, sleep apnea, morbid obesity)? @ -None Was patient admitted / discharged? Hospital course, mention meds given and route, prescriptions, significant lab abnormalities, going to OR and other pertinent info. @ -23-year-old female presenting with chief complaint of back pain. No red flag symptoms. History and physical examination are conducted. X-ray negative for fracture or dislocation. Urine shows no strong evidence for UTI. Negative hCG. Patient educated on today's findings and supportive management at home. Follow-up with PCP. Report back to ER with any new or worsening symptoms. Discussed return parameters and answered all questions. Patient conveyed verbal understanding and agreed to the plan. I discussed this case in detail with my attending Dr. Manzano Undiagnosed new problem with uncertain prognosis? @ -No Drug Therapy requiring intensive monitoring for toxicity (Heparin, Nitro, Insulin, Cardizem)? @ -No Were any procedures done? @ -No Diagnosis/symptom? @ -Radiculopathy Acute, or Chronic, or Acute on Chronic? @ -Acute Uncomplicated (without systemic symptoms) or Complicated (systemic symptoms)? @ -Uncomplicated Side effects of treatment? @ -No Exacerbation, Progression, or Severe Exacerbation? @ -No Poses a threat to life or bodily function? How? (Chest pain, [place], [place], pneumonia, PE, COPD, DKA, ARF, appy, cholecystitis, CVA, Diverticulitis, Homicidal, Suicidal, threat to staff... and all critical care pts) @ -Unlikely - Lab Data Lab Results 09/18/24 09/18/24 Range/Units 19:23 19:23 Urine Color Light Yellow Urine Appearance Cloudy H (Clear) Urine pH 7.0 (5.0-8.0) Ur Specific [place] 1.013 (1.001-1.035) Urine Protein Negative (Negative) Urine Glucose (UA) Negative (Negative) Urine Ketones 2+ H (Negative) Urine Blood Negative (Negative) Urine Nitrite Negative (Negative) Urine Bilirubin Negative (Negative) Urine Urobilinogen <2.0 (<2.0) mg/dL Ur Leukocyte Esterase Moderate H (Negative) Urine RBC 1 (0-5) /hpf Urine WBC 17 H (0-5) /hpf Ur Squamous Epith Cells 7 H (0-4) /hpf Urine Bacteria Moderate H (None) /hpf Urine Mucus Moderate H (None) /hpf Urine HCG, Qual Not Detected (Not Detectd) Disposition Clinical Impression: Radiculopathy Disposition: HOME SELF-CARE Condition: Good Instructions (If sedation given, give patient instructions): Lumbar Radiculopathy (ED) Additional Instructions: Follow-up with PCP and orthopedics. Report back to ER with any new or worsening symptoms. Take medication as prescribed, do not take cyclobenzaprine before driving or operating heavy machinery as it may cause drowsiness Prescriptions: Cyclobenzaprine [Flexeril] 10 mg PO TID PRN #15 tab PRN Reason: Spasms Is patient prescribed a controlled substance at d/c from ED?: No Referrals: Truong Guthrie MD [Primary Care Provider] - 1-2 days Oscar Thompson DO [Doctor of Osteopathic Medicine] - 1-2 days Time of Disposition: 19:55
[2024-09-18 19:42] LABS: Appearance,Urine Cloudy (Clear); Bacteria,Urine Moderate /hpf; Bilirubin,Urine Negative (Negative); Blood,Urine Negative (Negative); Color,Urine Light Yellow; Glucose,Urine (UA) Negative (Negative); Ketones,Urine 2+ (Negative); Leukocyte Esterase,Urine Moderate (Negative); Mucus,Urine Moderate /hpf; Nitrite,Urine Negative (Negative); Protein,Urine Negative (Negative); RBC,Urine 1 /hpf (0-5); Specific Gravity,Urine 1.013 (1.001-1.035); Squamous Epithelial Cell,Urine 7 /hpf (0-4); Urobilinogen,Urine <2.0 mg/dL (<2.0); WBC,Urine 17 /hpf (0-5)
[2024-09-18 20:11] VITALS: BP 131/86; PULSE 89; RESP 20
== END 2024-09-18 20:11 | disposition home or self-care (01) ==
LOC: EC 15:34
DX: M54.10 Radiculopathy, site unspecified (principal); F17.290 Nicotine dependence, other tobacco product, uncomplicated
CPT/HCPCS: 81001; 81025; 87086; 72100; 99284; 96372 ×3; J1100; J2360; J1885

== ENCOUNTER 2024-09-26 02:25 | Emergency (ER) | payer OTHER ==
--- NOTE | 2024-09-26 03:52 | ED ---
General Adult HPI - General Source: patient Mode of arrival: ambulatory Limitations: no limitations <Candelario Reyes - Last Filed: 09/26/24 07:10> <Cisco Sullivan - Last Filed: 09/26/24 08:38> - General Chief complaint: Abdominal Pain Stated complaint: Right abd pain Time Seen by Provider: 09/26/24 02:37 - History of Present Illness Initial comments: Dictation was produced using [employer] dictation software. please excuse any grammatical, word or spelling errors. Chief Complaint: 23-year-old female with couple days of epigastric and right upper quadrant pain History of Present Illness: Patient is a 23-year-old female no history of abdominal surgery or gallstones presents to the emergency department with abdomi nal pain. Patient states that her pain is of the right upper quadrant. Initially started in the epigastrium radiated to the right upper quadrant. Denies any fever, chills or night sweats. No diarrhea. The ROS documented in this emergency department record has been reviewed and confirmed by me. Those systems with pertinent positive or negative responses have been documented in the HPI. All other systems are other negative and/or noncontributory. (Candelario Reyes) - Related Data Home Medications Medication Instructions Recorded Confirmed Norelgestromin/Ethin.estradiol 1 patch TRANSDERM MO 11/17/21 11/17/21 [Xulane 150-35 Mcg/Day Patch] Previous Rx's Medication Instructions Recorded Escitalopram [Lexapro] 20 mg PO DAILY 30 Days tab 11/21/21 OLANZapine [ZyPREXA] 2.5 mg PO HS 30 Days tab 11/21/21 busPIRone HCl [Buspar] 15 mg PO TID 30 Days tab 11/21/21 traZODone HCL [Desyrel] 50 mg PO HS 30 Days tab 11/21/21 Cyclobenzaprine [Flexeril] 10 mg PO TID PRN #15 tab 09/18/24 Ketorolac [Toradol] 10 mg PO Q6HR PRN #15 tab 09/26/24 Ondansetron Odt [Zofran Odt] 4 mg PO Q8HR PRN #10 tab 09/26/24 Allergies Allergy/AdvReac Type Severity Reaction Status Date / Time No Known Allergies Allergy Verified 09/26/24 02:26 Review of Systems ROS Other: All systems not noted in ROS Statement are negative. <Candelario Reyes - Last Filed: 09/26/24 07:10> ROS Other: All systems not noted in ROS Statement are negative. <Cisco Sullivan - Last Filed: 09/26/24 08:38> ROS Statement: Those systems with pertinent positive or pertinent negative responses have been documented in the HPI. Past Medical History Past Medical History: Thyroid Disorder Additional Past Medical History / Comment(s): migraines, delivered a baby 2 mos ago. hashimotos History of Any Multi-Drug Resistant Organisms: None Reported Past Surgical History: No Surgical Hx Reported Past Anesthesia/Blood Transfusion Reactions: No Reported Reaction Past Psychological History: Anxiety, Bipolar, Depression Smoking Status: Vaper Past Alcohol Use History: Rare Past Drug Use History: None Reported <Candelario Reyes - Last Filed: 09/26/24 07:10> General Exam Limitations: no limitations <Candelario Reyes - Last Filed: 09/26/24 07:10> - General Exam Comments Initial Comments: PHYSICAL EXAM: General Impression: Alert and oriented x3, not in acute distress HEENT: Normocephalic atraumatic, extra-ocular movements intact, pupils equal and reactive to light bilaterally, mucous membranes moist. Cardiovascular: Heart regular rate and rhythm Chest: Able to complete full sentences, no retractions, no tachypnea Abdomen: abdomen soft, palpatory tenderness to the right upper quadrant, negative Jones sign, non-distended, no organomegaly Musculoskeletal: Pulses present and equal in all extremities, no peripheral edema Motor: no focal deficits noted Neurological: CN II-XII grossly intact, no focal motor or sensory deficits noted Skin: Intact with no visualized rashes Psych: Normal affect and mood (Candelario Reyes) Course Vital Signs 09/26/24 09/26/24 09/26/24 02:26 04:00 06:00 Temperature 98.3 F 98.3 F Pulse Rate 77 71 68 Respiratory 19 18 16 Rate Blood Pressure 145/89 138/74 128/70 O2 Sat by Pulse 99 99 98 Oximetry 09/26/24 08:21 Temperature 97.7 F Pulse Rate 70 Respiratory 16 Rate Blood Pressure 101/67 O2 Sat by Pulse 100 Oximetry Medical Decision Making - Lab Data Result diagrams: 09/26/24 03:30 09/26/24 03:30 <Candelario Reyes - Last Filed: 09/26/24 07:10> - Lab Data Result diagrams: 09/26/24 03:30 09/26/24 03:30 <SullivanCisco - Last Filed: 09/26/24 08:38> - Medical Decision Making Was pt. sent in by a medical professional or institution (, PA, RADIO MECHANIC HELPER, urgent care, hospital, or group home...) When possible be specific @ -No Did you speak to anyone other than the patient for history (EMS, parent, family, police, friend...)? What history was obtained from this source @ -No Did you review nursing and triage notes (agree or disagree)? Why? @ -I reviewed and agree with nursing and triage notes Were old charts reviewed (outside hosp., previous admission, EMS record, old EKG, old radiological studies, urgent care reports/EKG's, group home records)? Report findings @ -No old charts were reviewed Differential Diagnosis (chest pain, altered mental status, abdominal pain women, abdominal pain men, vaginal bleeding, musculoskeletal, weakness, fever, dyspnea, syncope, headache, dizziness, GI bleed, back pain, seizure, CVA, palpatations, mental health)? @ -Differential Abdominal Pain Women: Appendicitis, Cholecystitis, diverticulosis, ischemic bowel, pancreatitis, hepatitis, UTI, gastroenteritis, AAA, incarcerated hernia, bowel obstruction, constipation, inflammatory bowel, hepatitis, peptic ulcer disease, splenic infarction, perforated viscus, vulvitis, ovarian torsion, PID, kidney stone, placenta abruption, this is not meant to be an all-inclusive list EKG interpreted by me (3pts min.). @ -None done X-rays interpreted by me (1pt min.). @ -None done CT interpreted by me (1pt min.). @ -None done U/S interpreted by me (1pt. min.). @ - What testing was considered but not performed or refused? (CT, X-rays, U/S, labs)? Why? @ -None What meds were considered but not given or refused? Why? @ -None Was smoking cessation discussed for >3mins.? @ -No Were there social determinants of health that impacted care today? How? (Homelessness, low income, unemployed, alcoholism, drug addiction, transportation, low edu. Level, literacy, decrease access to med. care, shelter, rehab)? @ -No Was there de-escalation of care discussed even if they declined (Discuss DNR or withdrawal of care, Hospice)? DNR status @ -No What co-morbidities impacted this encounter? (DM, HTN, Smoking, COPD, CAD, Cancer, CVA, ARF, Chemo, Hep., AIDS, mental health diagnosis, sleep apnea, morbid obesity)? @ -None Was patient admitted / discharged? Hospital course, mention meds given and route, prescriptions, significant lab abnormalities, going to OR and other pertinent info. @ -23-year-old well-appearing female with right upper quadrant pain. Vital signs stable. Patient afebrile. Laboratory evaluation is unremarkable including abdominal labs. Ultrasound pending. Did you discuss the management of the patient with other professionals (professionals i.e. DrKimberlee, PA, RADIO MECHANIC HELPER, lab, RT, psych nurse, medical social consultant, lineman a class, teacher, chief revenue officer, complex case manager)? Give summary @ -No Was critical care preformed (if so, how long)? @ -No Undiagnosed new problem with uncertain prognosis? @ -No Drug Therapy requiring intensive monitoring for toxicity (Heparin, Nitro, Insulin, Cardizem)? @ -No Were any procedures done? @ -No Diagnosis/symptom? Acute, or Chronic, or Acute on Chronic? Uncomplicated (without systemic symptoms) or Complicated (systemic symptoms)? @ -Default Side effects of treatment? @ -No Exacerbation, Progression, or Severe Exacerbation? @ -No Poses a threat to life or bodily function? How? (Chest pain, [place], [place], pneumonia, PE, COPD, DKA, ARF, appy, cholecystitis, CVA, Diverticulitis, Homicidal, Suicidal, threat to staff... and all critical care pts) @ -No Patient care signed out to Dr. Sullivan at 7:00 AM (Candelario Reyes) Ultrasound interpreted by myself shows some gallbladder wall thickening and stones or polyps. Patient reevaluated and feeling much better. Abdomen is soft and nontender Patient updated on results and plan. Patient will be discharged with primary care and surgical follow-up. Patient demonstrates understanding and is agreeable. Diagnosis: Cholelithiasis Acuity: Acute (Cisco Sullivan) - Lab Data Lab Results 09/26/24 09/26/24 Range/Units 03:30 03:30 WBC 9.73 (4.50-10.00) 10*3/uL RBC 4.45 (4.10-5.20) 10*6/uL Hgb 12.2 (12.0-15.0) g/dL Hct 37.5 (37.2-46.3) % MCV 84.3 (80.0-97.0) fL MCH 27.4 (27.0-32.0) pg MCHC 32.5 (32.0-37.0) g/dL Plt Count 272 (140-440) 10*3/uL MPV 11.4 (9.5-12.2) fL Immature Gran % (Auto) 0.2 % Neutrophils % 62.8 % Lymphocytes % 27.1 % Monocytes % 5.1 % Eosinophils % 4.3 % Basophils % 0.5 % Immature Gran # 0.02 (0.00-0.04) 10*3/uL Neutrophils # 6.10 (1.80-7.70) 10*3/uL Lymphocytes # 2.64 (0.90-5.00) 10*3/uL Monocytes # 0.50 (0.20-1.00) 10*3/uL Eosinophils # 0.42 H (0.04-0.35) 10*3/uL Basophils # 0.05 (0.00-0.10) 10*3/uL Sodium 136 L (137-145) mmol/L Potassium 4.2 (3.5-5.1) mmol/L Chloride 105 (98-107) mmol/L Carbon Dioxide 22 (22-30) mmol/L Anion Gap 9 mmol/L BUN 13 (7-17) mg/dL Creatinine 0.70 (0.52-1.04) mg/dL Est GFR (CKD-EPI)AfAm >90 (>60 ml/min/1.73 sqM) Est GFR (CKD-EPI)NonAf >90 (>60 ml/min/1.73 sqM) Glucose 98 (74-99) mg/dL Calcium 9.3 (8.4-10.2) mg/dL Total Bilirubin 0.3 (0.2-1.3) mg/dL AST 28 (14-36) U/L ALT 34 (4-34) U/L Alkaline Phosphatase 63 (38-126) U/L Total Protein 7.6 (6.3-8.2) g/dL Albumin 4.2 (3.5-5.0) g/dL Lipase 77 (23-300) U/L HCG, Quant <2.4 mIU/mL Disposition <Candelario Reyes - Last Filed: 09/26/24 07:10> Is patient prescribed a controlled substance at d/c from ED?: No Time of Disposition: 08:37 <Cisco Sullivan - Last Filed: 09/26/24 08:38> Clinical Impression: Cholelithiasis Disposition: HOME SELF-CARE Condition: Stable Instructions (If sedation given, give patient instructions): Gallstones (ED) Additional Instructions: Avoid high-fat foods. Avoid large meals. Please do follow-up with primary care physician and surgeon in the next couple days for recheck. Return for fever, increased pain, vomiting, worsening or change in symptoms or any other concerns. Prescriptions have been sent to pharmacy. Prescriptions: Ketorolac [Toradol] 10 mg PO Q6HR PRN #15 tab PRN Reason: Pain Ondansetron Odt [Zofran Odt] 4 mg PO Q8HR PRN #10 tab PRN Reason: Nausea Referrals: Truong Guthrie MD [Primary Care Provider] - 1-2 days Mireya Regan DO [Doctor of Osteopathic Medicine] - 1-2 days
[2024-09-26 04:11] LABS: Basophils # (A) 0.05 10*3/uL (0.00-0.10); Basophils % (A) 0.5 %; Eosinophils # (A) 0.42 10*3/uL (0.04-0.35); Eosinophils % (A) 4.3 %; HCT 37.5 % (37.2-46.3); HGB 12.2 g/dL (12.0-15.0); Lymphocytes # (A) 2.64 10*3/uL (0.90-5.00); Lymphocytes % (A) 27.1 %; MCH 27.4 pg (27.0-32.0); MCHC 32.5 g/dL (32.0-37.0); MCV 84.3 fL (80.0-97.0); Mean Platelet Volume 11.4 fL (9.5-12.2); Monocytes % (A) 5.1 %; Neutrophils % (A) 62.8 %; Platelet Count 272 10*3/uL (140-440); RBC 4.45 10*6/uL (4.10-5.20); RDW 14.2 % (11.5-14.5); WBC 9.73 10*3/uL (4.50-10.00)
[2024-09-26 04:33] LABS: ALT 34 U/L (4-34); AST 28 U/L (14-36); African American GFR (CKD) >90 (>60 ml/min/1.73 sqM); Albumin 4.2 g/dL (3.5-5.0); Alkaline Phosphatase 63 U/L (38-126); Anion Gap 9 mmol/L; Blood Urea Nitrogen 13 mg/dL (7-17); Calcium 9.3 mg/dL (8.4-10.2); Carbon Dioxide 22 mmol/L (22-30); Chloride 105 mmol/L (98-107); Glucose 98 mg/dL (74-99); Lipase 77 U/L (23-300); Non-African American GFR(CKD) >90 (>60 ml/min/1.73 sqM); Potassium 4.2 mmol/L (3.5-5.1); Sodium 136 mmol/L (137-145); Total Bilirubin 0.3 mg/dL (0.2-1.3); Total Protein 7.6 g/dL (6.3-8.2)
[2024-09-26 04:47] LABS: HCG,Quantitative Serum <2.4 mIU/mL
[2024-09-26] MEDS: ONDANSETRON 4 MG/2 ML VIAL IVP STA (05:46)
[2024-09-26] MEDS: MORPHINE SULFATE 4 MG/ML SYRINGE IV STA (05:47)
[2024-09-26 06:14] VITALS: RESP 16
--- NOTE | 2024-09-26 08:21 | US ---
EXAMINATION TYPE: US abdomen limited DATE OF EXAM: 09/26/2024 COMPARISON: NONE CLINICAL INDICATION: Female, 23 years old with history of epigastric pain; TECHNIQUE: Grayscale and color Doppler imaging of the right upper quadrant was performed. FINDINGS: EXAM MEASUREMENTS: Liver Length: 15.8 cm Gallbladder Wall: 0.4 cm CBD: 0.3 cm Right Kidney: 8.4 x 3.9 x 4.0 cm Pancreas: Tail obscured by overlying bowel gas, echogenic in appearance Liver: wnl Gallbladder: multiple echogenic foci with shadow. Echogenic area adjacent to wall = 0.3 cm. Gallbla dder wall thickening is present. Evidence for sonographic Jones's sign: neg CBD: wnl Right Kidney: No hydronephrosis or masses seen IMPRESSION: 1. Thickened gallbladder wall. Cholelithiasis and/or polyps are present. Correlate for acute cholecys titis. [facility], , 09/26/2024 8:19 AM
[2024-09-26 08:23] VITALS: TEMP 97.7
[2024-09-26 08:46] VITALS: BP 107/76; PULSE 72
== END 2024-09-26 08:44 | disposition home or self-care (01) ==
LOC: EC 02:25
DX: K80.20 Calculus of gallbladder without cholecystitis without obstruction (principal); F17.290 Nicotine dependence, other tobacco product, uncomplicated
CPT/HCPCS: 36415; 80053; 83690; 85025; 84702; 76705; 99284; 96374; 96375; J2270; J2405

== ENCOUNTER 2024-09-28 08:38 | Inpatient (IN) | payer OTHER ==
--- NOTE | 2024-09-28 09:08 | ED ---
Abdominal Pain HPI - General Chief Complaint: Abdominal Pain Stated Complaint: Vomitting/L side abd pain/just here 09/26 Time Seen by Provider: 09/28/24 08:54 Source: patient, RN notes reviewed Mode of arrival: wheelchair Limitations: no limitations - History of Present Illness Initial Comments: This is a 23-year-old female who presents to the emergency department for abdominal pain. Patient was evaluated here 2 days ago and diagnosed with gallstones. She was given information to follow-up with general surgery, but states that they cannot get her in until the . States that since then she has had 4 "attacks". The current bout of pain started several hours ago and she has associated nausea and vomiting. Pain is primarily in the right upper kasandra drant with radiation to the left side as well. MD Complaint: abdominal pain - Related Data Home Medications Medication Instructions Recorded Confirmed Albuterol Sulfate [Albuterol 2 puff INHALATION RT-Q4H PRN 09/28/24 09/28/24 Sulfate Hfa] Clindamycin Phosphate 1% Swab 1 applic TOPICAL DAILY 09/28/24 09/28/24 Magnesium 100mg 1 tab PO DAILY 09/28/24 09/28/24 Thiamine [Vitamin B-1] 100 mg PO DAILY 09/28/24 09/28/24 Previous Rx's Medication Instructions Recorded Cyclobenzaprine [Flexeril] 10 mg PO TID PRN #15 tab 09/18/24 Ketorolac [Toradol] 10 mg PO Q6HR PRN #15 tab 09/26/24 Ondansetron Odt [Zofran Odt] 4 mg PO Q8HR PRN #10 tab 09/26/24 Allergies Allergy/AdvReac Type Severity Reaction Status Date / Time No Known Allergies Allergy Verified 09/28/24 11:45 Review of Systems ROS Statement: Those systems with pertinent positive or pertinent negative responses have been documented in the HPI. ROS Other: All systems not noted in ROS Statement are negative. Past Medical History Past Medical History: Thyroid Disorder Additional Past Medical History / Comment(s): migraines, delivered a baby 2 mos ago. hashimotos History of Any Multi-Drug Resistant Organisms: None Reported Past Surgical History: No Surgical Hx Reported Past Anesthesia/Blood Transfusion Reactions: No Reported Reaction Past Psychological History: Anxiety, Bipolar, Depression Smoking Status: Vaper Past Alcohol Use History: Rare Past Drug Use History: None Reported General Exam Limitations: no limitations General appearance: alert, in no apparent distress Head exam: Present: atraumatic, normocephalic, normal inspection Respiratory exam: Present: normal lung sounds bilaterally. Absent: respiratory distress, wheezes, rales, rhonchi, stridor Cardiovascular Exam: Present: regular rate, normal rhythm GI/Abdominal exam: Present: soft, tenderness (RUQ). Absent: distended Neurological exam: Present: alert, oriented X3, CN II-XII intact Psychiatric exam: Present: normal affect, normal mood Skin exam: Present: warm, dry, intact, normal color. Absent: rash Course Vital Signs 09/28/24 09/28/24 09/28/24 08:50 10:32 12:19 Temperature 97.4 F L Pulse Rate 74 91 98 Respiratory 18 16 16 Rate Blood Pressure 109/75 129/73 122/78 O2 Sat by Pulse 100 99 94 L Oximetry 09/28/24 14:03 Temperature Pulse Rate 89 Respiratory 18 Rate Blood Pressure 124/72 O2 Sat by Pulse 98 Oximetry Medical Decision Making - Medical Decision Making This is a 23 year old female who presents to the emergency department for abdominal pain. Was pt. sent in by a medical professional or institution? @ -No Did you speak to anyone other than the patient for history? @ -No Did you review nursing and triage notes? @ -Yes, and I agree, it is accurate with regards to the patient's symptoms. Were old charts reviewed? @ -Abdominal ultrasound from 09/26/2024 demonstrating a thickened gallbladder wal l with cholelithiasis and/or polyps. They advised correlation for acute cholecystitis. Differential Diagnosis? @ -Differential Abdominal Pain Women: Appendicitis, Cholecystitis, diverticulosis, ischemic bowel, pancreatitis, hepatitis, UTI, gastroenteritis, AAA, incarcerated hernia, bowel obstruction, constipation, inflammatory bowel, hepatitis, peptic ulcer disease, splenic infarction, perforated viscus, vulvitis, ovarian torsion, PID, kidney stone, placenta abruption, this is not meant to be an all-inclusive list EKG interpreted by me (3pts min.)? @ -Not obtained X-rays interpreted by me (1pt min.)? @ -Not obtained CT interpreted by me (1pt min.)? @ -Not obtained U/S interpreted by me (1pt. min.)? @ -Gallbladder ultrasound obtained. My interpretation identifies cholelithiasis. What testing was considered but not performed? (CT, X-rays, U/S, labs)? Why? @ -None What meds were considered but not given? Why? @ -None Did you discuss the management of the patient with other professionals? @ -Yes, Dr. Regan, general surgery, who advised that the patient could remain at this facility if GI is available tomorrow. Dr. Marcelino accepts the patient for admission to medicine. GI coverage was confirmed for tomorrow. Did you reconcile home meds? @ -Yes Was smoking cessation discussed for >3mins.? @ -No Was critical care preformed (if so, how long)? @ -No Were there social determinants of health that impacted care today? How? (Homelessness, low income, unemployed, alcoholism, drug addiction, transportation, low edu. Level, literacy, decrease access to med. care, skilled nursing, rehab)? @ -No Was there de-escalation of care discussed even if they declined? (Discuss DNR or withdrawal of care, Hospice)? @ -No What co-morbidities impacted this encounter? (DM, HTN, Smoking, COPD, CAD, Cancer, CVA, Hep., AIDS, mental health diagnosis, sleep apnea, morbid obesity)? @ -None Was patient admitted / discharged? @ -Admitted. Lab work demonstrates elevated LFTs with a bilirubin of 2.2, AST of 290, ALT of 205, and alkaline phosphatase of 142. These were previously normal when she was evaluated here 2 days ago. Additionally, pancreatic enzymes are elevated with an amylase of 2939 and lipase of greater than 20,000. Findings concerning for gallstone pancreatitis. Gallbladder ultrasound was subsequently repeated. The ultrasound of her gallbladder from 2 days ago revealed gallbladder wall thickening concerning for acute cholecystitis. Repeat ultrasound today did not show concern for acute cholecystitis and the gallbladder wall was not thickened. While the LFTs were elevated, CBD was not dilated. Case discussed with Dr. Regan, general surgery. He advised that if we have GI available here tomorrow, she could be admitted here as opposed to being transferred. GI schedule was reviewed and confirmed that she will be on consult here starting tomorrow. Patient admitted to medicine for gallstone pancreatitis. Maintenance fluids initiated. Patient kept n.p.o. for the meantime. Case discussed with ED attending Dr. Sullivan. Undiagnosed new problem with uncertain prognosis? @ -None Drug Therapy requiring intensive monitoring for toxicity (Heparin, Nitro, Insulin, Cardizem)? @ -None Were any procedures done? @ -None Diagnosis/symptom? @ -Gallstone pancreatitis Acute, or Chronic, or Acute on Chronic? @ -Acute Uncomplicated (without systemic symptoms) or Complicated (systemic symptoms)? @ -Complicated Side effects of treatment? @ -None Exacerbation, Progression, or Severe Exacerbation] @ -Not applicable Poses a threat to life or bodily function? @ -Yes, can lead to life-threatening infection - Lab Data Result diagrams: 09/28/24 09:15 09/28/24 09:15 Lab Results 09/28/24 09/28/24 09/28/24 Range/Units 09:15 09:15 09:15 WBC 8.36 (4.50-10.00) 10*3/uL RBC 4.53 (4.10-5.20) 10*6/uL Hgb 12.8 (12.0-15.0) g/dL Hct 37.7 (37.2-46.3) % MCV 83.2 (80.0-97.0) fL MCH 28.3 (27.0-32.0) pg MCHC 34.0 (32.0-37.0) g/dL Plt Count 266 (140-440) 10*3/uL MPV 11.0 (9.5-12.2) fL Immature Gran % (Auto) 0.2 % Neutrophils % 75.8 % Lymphocytes % 15.4 % Monocytes % 6.5 % Eosinophils % 1.9 % Basophils % 0.2 % Immature Gran # 0.02 (0.00-0.04) 10*3/uL Neutrophils # 6.33 (1.80-7.70) 10*3/uL Lymphocytes # 1.29 (0.90-5.00) 10*3/uL Monocytes # 0.54 (0.20-1.00) 10*3/uL Eosinophils # 0.16 (0.04-0.35) 10*3/uL Basophils # 0.02 (0.00-0.10) 10*3/uL Sodium 137 (137-145) mmol/L Potassium 3.9 (3.5-5.1) mmol/L Chloride 106 (98-107) mmol/L Carbon Dioxide 19 L (22-30) mmol/L Anion Gap 12 mmol/L BUN 14 (7-17) mg/dL Creatinine 0.71 (0.52-1.04) mg/dL Est GFR (CKD-EPI)AfAm >90 (>60 ml/min/1.73 sqM) Est GFR (CKD-EPI)NonAf >90 (>60 ml/min/1.73 sqM) Glucose 112 H (74-99) mg/dL Plasma Lactic Acid Miguel Angel 1.3 (0.7-2.0) mmol/L Calcium 9.3 (8.4-10.2) mg/dL Total Bilirubin 2.2 H (0.2-1.3) mg/dL AST 290 H (14-36) U/L ALT 205 H (4-34) U/L Alkaline Phosphatase 142 H (38-126) U/L Total Protein 7.5 (6.3-8.2) g/dL Albumin 4.2 (3.5-5.0) g/dL Amylase 2939 H* (30-110) U/L Lipase >48573 H (23-300) U/L HCG, Qual Not Detected - Radiology Data Radiology results: report reviewed, image reviewed Disposition Clinical Impression: Gallstone pancreatitis Disposition: ADMITTED IP TO THIS HOSP
[2024-09-28] MEDS: HYDROmorphone 1 MG/ML 1 ML SYRINGE IVP STA ×2 (09:19→10:58)
[2024-09-28] MEDS: KETOROLAC 15 MG/ML 1 ML VIAL IVP STA (09:20)
[2024-09-28] MEDS: SODIUM CHLORIDE 0.9% 1,000 ML IV ONE (09:20)
[2024-09-28] MEDS: ONDANSETRON 4 MG/2 ML VIAL IVP STA ×2 (09:20→10:58)
[2024-09-28 09:22] LABS: Basophils # (A) 0.02 10*3/uL (0.00-0.10); Basophils % (A) 0.2 %; Eosinophils # (A) 0.16 10*3/uL (0.04-0.35); Eosinophils % (A) 1.9 %; HCT 37.7 % (37.2-46.3); HGB 12.8 g/dL (12.0-15.0); Lymphocytes # (A) 1.29 10*3/uL (0.90-5.00); Lymphocytes % (A) 15.4 %; MCH 28.3 pg (27.0-32.0); MCV 83.2 fL (80.0-97.0); Monocytes # (A) 0.54 10*3/uL (0.20-1.00); Monocytes % (A) 6.5 %; Neutrophils # (A) 6.33 10*3/uL (1.80-7.70); Neutrophils % (A) 75.8 %; Platelet Count 266 10*3/uL (140-440); RBC 4.53 10*6/uL (4.10-5.20); RDW 13.9 % (11.5-14.5); WBC 8.36 10*3/uL (4.50-10.00)
[2024-09-28 09:33] LABS: HCG,Qualitative Serum Not Detected
[2024-09-28 09:35] LABS: ALT 205 U/L (4-34); AST 290 U/L (14-36); African American GFR (CKD) >90 (>60 ml/min/1.73 sqM); Albumin 4.2 g/dL (3.5-5.0); Alkaline Phosphatase 142 U/L (38-126); Anion Gap 12 mmol/L; Blood Urea Nitrogen 14 mg/dL (7-17); Calcium 9.3 mg/dL (8.4-10.2); Carbon Dioxide 19 mmol/L (22-30); Chloride 106 mmol/L (98-107); Glucose 112 mg/dL (74-99); Non-African American GFR(CKD) >90 (>60 ml/min/1.73 sqM); Potassium 3.9 mmol/L (3.5-5.1); Sodium 137 mmol/L (137-145); Total Bilirubin 2.2 mg/dL (0.2-1.3); Total Protein 7.5 g/dL (6.3-8.2)
[2024-09-28] MEDS: HYDROmorphone 0.5 MG/0.5 ML SYRINGE IVP STA (09:51)
[2024-09-28 10:03] LABS: Lipase >20000 U/L (23-300)
[2024-09-28 10:04] LABS: Amylase 2939 U/L (30-110)
[2024-09-28] MEDS: LACTATED RINGERS 1,000 ML IV SCH (10:29)
[2024-09-28] MEDS: LACTATED RINGERS 1,000 ML IV ONE (10:29)
--- NOTE | 2024-09-28 10:44 | US ---
EXAMINATION TYPE: US gallbladder DATE OF EXAM: 09/28/2024 COMPARISON: NONE CLINICAL INDICATION: Female, 23 years old with history of RUQ and LUQ pain, LFTs elevated; US 2 days ago showed GB stones, increasing pain TECHNIQUE: Grayscale and color Doppler imaging of the right upper quadrant was performed. FINDINGS: EXAM MEASUREMENTS: Liver Length: 15.3 cm Gallbladder Wall: 0.3 cm CBD: 0.6 cm Right Kidney: 9.1 x 4.5 x 3.9 cm FORGING DIE FINISHER NOTES:bowel gas and habitus limits exam Pancreas: not seen due to bowel gas Liver: intercostal imaging, wnl Gallbladder: multiple layering stones seen, comet tail artifact on anterior wall may represent adeno myomatosis Evidence for sonographic Jones's sign: no CBD: wnl Right Kidney: wnl IMPRESSION: 1. Mild adenomyomatosis of the gallbladder. Cholelithiasis is present. 2. Some limitations due to bowel gas. 3. No suspicious acute abdomen changes otherwise evident [facility], , 09/28/2024 10:42 AM
[2024-09-28] MEDS ORDERED: ACETAMINOPHEN TAB 325 MG TAB PO PRN (11:14)
[2024-09-28] MEDS ORDERED: NALOXONE 0.4 MG/ML 1 ML VIAL IV PRN (11:14)
[2024-09-28] MEDS ORDERED: HYDROmorphone 0.5 MG/0.5 ML SYRINGE IVP PRN (11:14)
--- NOTE | 2024-09-28 12:32 | P.HPIM ---
History of Present Illness H&P Date: 09/28/24 History of Presenting Illness: Patient is a very pleasant 23-year-old female with a past medical history of anxiety with depression, bipolar disorder, and Gonzalo's. She presented to the emergency department today with a chief complaint of abdominal pain. She reports the symptoms began initially on and have waxed and waned over the past few days. She was evaluated at the hospital on 09/26/2024 and diagnosed with gallstones and recommended to follow-up outpatient with PCP and general surgeon. Patient reports symptoms continued to wax and wane accompanied by nausea and vomiting and states pain became persistent and intractable yesterday evening around 4 PM and remained uncontrollable all night. She reports continued nausea, epigastric pain, left upper quadrant pain, and intermittent right upper quadrant pain. She states last episode of vomiting was yesterday evening. She denies having any fevers, chills, diaphoresis, headache, lightheadedness, dizziness, chest pain, palpitations, cough or congestion, or experiencing any difficulties with or changes in her urinary function. She reports her last menstrual cycle began 09/23/2024 and only lasted for 2 days. Upon arrival to our facility, patient underwent evaluation in the emergency department. Vital signs upon arrival blood pressure 109/75, heart rate 74, respiratory rate 18, temp 97.4 F, and SpO2 100% on room air. Gallbladder ultrasound completed showing multiple layering stones seen with comet tail artifact on anterior wall may represent adenomyomatosis. Labs completed and reviewed. CBC unremarkable. BMP showing high anion gap metabolic acidosis with chloride of 106, bicarb of 19, and anion gap of 12. Blood glucose 112. Lactic acid normal findings of 1.3. Liver profile showing hyperbilirubinemia with total bili of 2.2 transaminitis with AST of 298, ALT 205, and alkaline ph osphatase of 142. Amylase critical at 2939 with lipase greater than 20,000. Serum hCG was negative for . Review of systems: Pertinent positives and negatives as discussed in HPI, a complete review of systems was performed and all other systems are negative. Physical exam: Vital signs reviewed and stable. General: Nontoxic, no distress and appears stated age. Derm: Skin warm and dry, normal coloration for ethnicity. Head: Atraumatic, normocephalic and symmetric. Eyes: EOM's intact, no lid lag, and anicteric sclera Mouth: no lip lesions, mucus membranes moist Cardiovascular: regular rate and rhythm with normal S1S2, no murmur, positive posterior tibial pulses bilaterally, and cap refill < 2 seconds. Lungs: Respirations even, regular, and unlabored on room air. Lungs CTA bilaterally, no rhonchi, no rales, no wheezing, and no accessory muscle usage. Abdominal: soft, diffuse upper abdominal tenderness worse in epigastric region and left upper quadrant, no guarding, no appreciable organomegaly Ext: ROM intact. No gross muscle atrophy, no edema, no contractures Neuro: Speech clear, face symmetrical and CN II-XII grossly intact with no noted focal neuro deficits Psych: Alert and oriented to person, place, time, and situation. Appropriate and pleasant affect. Assessment and Plan of Care: Gallstone pancreatitis Hyperbilirubinemia with transaminitis, rule out choledocholithiasis Anion gap metabolic acidosis -General Surgery consulted, appreciate recommendations -[employer] Et[employer] Developer consulted, appreciate recommendations -Continue with aggressive IV fluid hydration with lactated Ringer's at 130 cc/h. -Reglan 10 mg IVP every 6 hours as needed for nausea or vomiting. -GI prophylaxis with Protonix 40 mg IVP daily. -N.p.o. -Symptomatic care and pain management with Tylenol 650 mg p.o. every 6 hours as needed for mild pain and/or fever, Toradol 15 mg IVP every 6 hours as needed for moderate pain, and Dilaudid 1 mg IVP every 3 hours as needed for severe pain. Will hold off on antibiotics, as prophylactic antibiotics are not recommended in management of gallstone pancreatitis unless patient develops signs of infection. -Continued close monitoring of liver function and CBC with repeat a.m. labs. Data and imaging reviewed: As stated above in HPI. The patient is admitted with an anticipated greater than 2 midnight stay for evaluation of gallstone pancreatitis CODE STATUS:Full code DVT prophylaxis: Lovenox Discussed with: Patient, patient's family member at bedside, RN, and ED physician Anticipated discharge date: Pending clinical course Anticipated discharge place: Home Patient was seen independently by Nurse Practitioner. This document was prepared using [employer] dictation software. Please allow for errors in cardroom hand while rare they do occur. Krystian Junior NP rendered care for this patient independently, reviewed the findings and plan as documented in the note above and agree with plan. I did not physically speak with or examine the patient on this date. Past Medical History Past Medical History: Thyroid Disorder Additional Past Medical History / Comment(s): migraines, delivered a baby 2 mos ago. hashimotos History of Any Multi-Drug Resistant Organisms: None Reported Past Surgical History: No Surgical Hx Reported Past Anesthesia/Blood Transfusion Reactions: No Reported Reaction Past Psychological History: Anxiety, Bipolar, Depression Smoking Status: Vaper Past Alcohol Use History: Rare Past Drug Use History: None Reported Medications and Allergies Home Medications Medication Instructions Recorded Confirmed Type Cyclobenzaprine [Flexeril] 10 mg PO TID PRN #15 tab 09/18/24 09/28/24 Rx Ketorolac [Toradol] 10 mg PO Q6HR PRN #15 tab 09/26/24 09/28/24 Rx Ondansetron Odt [Zofran Odt] 4 mg PO Q8HR PRN #10 tab 09/26/24 09/28/24 Rx Albuterol Sulfate [Albuterol 2 puff INHALATION RT-Q4H PRN 09/28/24 09/28/24 History Sulfate Hfa] Clindamycin Phosphate 1% Swab 1 applic TOPICAL DAILY 09/28/24 09/28/24 History Magnesium 100mg 1 tab PO DAILY 09/28/24 09/28/24 History Thiamine [Vitamin B-1] 100 mg PO DAILY 09/28/24 09/28/24 History Allergies Allergy/AdvReac Type Severity Reaction Status Date / Time No Known Allergies Allergy Verified 09/28/24 11:45 Physical Exam Vitals: Vital Signs Temp Pulse Resp BP Pulse Ox 09/28/24 12:19 98 16 122/78 94 L 09/28/24 10:32 91 16 129/73 99 09/28/24 08:50 97.4 F L 74 18 109/75 100 Intake and Output 09/27/24 09/28/24 09/28/24 22:59 06:59 14:59 Other: Weight 117.934 kg Results CBC & Chem 7: 09/28/24 09:15 09/28/24 09:15 Labs: Abnormal Lab Results - Last 24 Hours (Table) 09/28/24 Range/Units 09:15 Carbon Dioxide 19 L (22-30) mmol/L Glucose 112 H (74-99) mg/dL Total Bilirubin 2.2 H (0.2-1.3) mg/dL AST 290 H (14-36) U/L ALT 205 H (4-34) U/L Alkaline Phosphatase 142 H (38-126) U/L Amylase 2939 H* (30-110) U/L Lipase >33269 H (23-300) U/L
[2024-09-28] MEDS: METOCLOPRAMIDE 5 MG/ML 2 ML VIAL IVP PRN (13:28)
[2024-09-28] MEDS: HYDROmorphone 1 MG/ML 1 ML SYRINGE IVP PRN (14:00)
[2024-09-28] MEDS: KETOROLAC 15 MG/ML 1 ML VIAL IVP PRN (15:26)
[2024-09-28] MEDS: ONDANSETRON 4 MG/2 ML VIAL IVP PRN (21:45)
[2024-09-29 08:01] LABS: HCT 36.2 % (37.2-46.3); HGB 11.6 g/dL (12.0-15.0); MCH 28.2 pg (27.0-32.0); MCV 87.9 FL (80.0-97.0); Mean Platelet Volume 12.1 FL (9.5-12.2); NRBC Per 100 WBC 0 X 10*3/uL (0.00-0.01); Platelet Count 250 X 10*3/uL (140-440); RBC 4.12 X 10*6/uL (4.10-5.20); RDW 14.6 % (11.5-14.5); WBC 13.04 X 10*3/uL (4.50-10.00)
[2024-09-29 08:13] LABS: Magnesium 1.8 mg/dL (1.5-2.4)
[2024-09-29] MEDS: ENOXAPARIN 40 MG/0.4 ML SYRINGE SQ SCH (08:29)
[2024-09-29] MEDS: THIAMINE 100 MG TAB PO SCH (08:29)
[2024-09-29] MEDS: CLINDAMYCIN PHOSPHATE 1% TOPICAL SCH (08:32)
[2024-09-29] MEDS: PANTOPRAZOLE 40 MG/10 ML VIAL IV SCH (08:57)
[2024-09-29 09:16] LABS: ALT 166 U/L (8-44); Albumin 3.6 g/dL (3.8-4.9); Albumin/Globulin Ratio 1.29 Ratio (1.60-3.17); Alkaline Phosphatase 144 U/L (41-126); BUN/Creat Ratio 13.14 Ratio (12.00-20.00); Blood Urea Nitrogen 9.2 mg/dL (9.0-27.0); Calcium 8.5 mg/dL (8.7-10.3); Chloride 103 mmol/L (96-109); Globulin 2.8 g/dL (1.6-3.3); Glucose 83 mg/dL (70-110); Potassium 5.1 mmol/L (3.5-5.5); Sodium 135 mmol/L (135-145); Total Bilirubin 3.2 mg/dL (0.3-1.2); Total Protein 6.4 g/dL (6.2-8.2)
[2024-09-29] MEDS: PIPERACILLIN-TAZOBACTAM 3.375 GM in SODIUM CHLORIDE 0.9% 100 ML IVPB SCH (10:14)
[2024-09-29 11:08] LABS: Amylase 2153 U/L (23-121)
[2024-09-29 11:36] LABS: Lipase >2800 U/L (14-63)
--- NOTE | 2024-09-29 12:03 | P.CONS ---
History of Present Illness - Reason for Consult Consult date: 09/29/24 Gallstone pancreatitis Requesting physician: Martha Almanza - Chief Complaint Abdominal pain - History of Present Illness This a pleasant 23-year-old female with no significant past medical history presented to the emergency department with complaints of right upper quadrant abdominal pain as well as left lower abdominal quadrant pain radiating to her back. Pain started then it had gone away then it returned yesterday and got worse associated with nausea and vomiting. She presented to the emergency department for further evaluation. She had a gallbladder ultrasound reporting multiple gallstones, CBD 0.6 cm. Mild adenomyomatosis of the gallbladder cholelithiasis present. Some limitations due to bowel gas. No suspicious acute abdominal changes otherwise evident. Patient was afebrile on admission. No leukocytosis. Elevated LFTs total bilirubin 2.2 AST 298 ALT 205 alkaline phosphatase 142 amylase 2939 lipase greater than 20,000. Today's repeat labs WBC 13 hemoglobin 11.6 platelet count 250,000 sodium 135 potassium 5.1 BUN 9.2 creatinine 0.7 total bilirubin 3.2 AST not resulted ALT 166 alkaline phosphatase 144 amylase 2153 lipase greater than 2800 She reports she still has abdominal pain mostly in the right upper quadrant at this time. Associated with nausea and some vomiting. She does feel like she has chills. She has low-grade fever of 99.7. Review of Systems REVIEW OF SYSTEMS: CARDIOPULMONARY: No chest pain or shortness of breath. Gastrointestinal: Abdominal pain. No nausea or vomiting. No hematemesis, coffee-ground emesis. No rectal bleeding, or melena. GENITOURINARY: No dysuria or hematuria. MUSCULOSKELETAL: Reports normal range of motion. SKIN: No rashes. No jaundice. ENDOCRINE: No chills, fevers. No excessive weight gain or loss. No polydipsia or polyuria. PSYCHIATRIC: Unremarkable. NEUROLOGY: No change in mental status. Denies dizziness, headache. ENT: Vision unremarkable. CONSTITUTIONAL: No recent weight loss. No fever, chills, night sweats. Past Medical History Past Medical History: Thyroid Disorder Additional Past Medical History / Comment(s): migraines, hashimotos, patient recently was in [place] regarding numbness and tremors. no official diagnosis after patient to f/u with neuro History of Any Multi-Drug Resistant Organisms: None Reported Past Surgical History: No Surgical Hx Reported Past Anesthesia/Blood Transfusion Reactions: No Reported Reaction Past Psychological History: Anxiety, Bipolar, Depression Smoking Status: Vaper Past Alcohol Use History: Rare Past Drug Use History: None Reported Medications and Allergies Home Medications Medication Instructions Recorded Confirmed Type Cyclobenzaprine [Flexeril] 10 mg PO TID PRN #15 tab 09/18/24 09/28/24 Rx Ketorolac [Toradol] 10 mg PO Q6HR PRN #15 tab 09/26/24 09/28/24 Rx Ondansetron Odt [Zofran Odt] 4 mg PO Q8HR PRN #10 tab 09/26/24 09/28/24 Rx Albuterol Sulfate [Albuterol 2 puff INHALATION RT-Q4H PRN 09/28/24 09/28/24 History Sulfate Hfa] Clindamycin Phosphate 1% Swab 1 applic TOPICAL DAILY 09/28/24 09/28/24 History Magnesium 100mg 1 tab PO DAILY 09/28/24 09/28/24 History Thiamine [Vitamin B-1] 100 mg PO DAILY 09/28/24 09/28/24 History Allergies Allergy/AdvReac Type Severity Reaction Status Date / Time No Known Allergies Allergy Verified 09/28/24 15:17 Physical Exam Vitals: Vital Signs Temp Pulse Pulse Resp BP BP Pulse Ox 09/29/24 07:06 99.7 F H 107 H 16 107/57 93 L 09/29/24 01:01 99.4 F 116 H 17 110/65 93 L 09/28/24 22:48 97 17 09/28/24 19:00 98.1 F 97 17 120/76 99 09/28/24 15:08 98.0 F 103 H 16 124/83 98 09/28/24 14:40 105 H 18 114/74 95 09/28/24 14:03 89 18 124/72 98 09/28/24 12:19 98 16 122/78 94 L 09/28/24 10:32 91 16 129/73 99 Intake and Output 09/28/24 09/29/24 09/29/24 22:59 06:59 14:59 Other: Voiding Method Toilet # Voids 1 1 Weight 117.934 kg General appearance: The patient is alert, oriented, appears in no acute distress. Obese. HET: Head is normocephalic and atraumatic. Conjunctiva pink. Sclera anicteric. Neck: Supple without lymphadenopathy. Trachea midline. Heart: Regular. Lungs: Equal expansion, normal respiratory effort. Abdomen: Soft, right upper quadrant and left lower quadrant tenderness, nondistended. Skin: No rashes. No jaundice. Extremities: Normal skin color and turgor. No pedal edema. Neurological: No focal deficits. Alert and oriented x3. Results CBC & Chem 7: 09/29/24 03:23 09/29/24 03:23 Labs: Abnormal Lab Results - Last 24 Hours (Table) 09/28/24 09/29/24 Range/Units 09:15 03:23 WBC 13.04 H (4.50-10.00) X 10*3/uL Hgb 11.6 L (12.0-15.0) g/dL Hct 36.2 L (37.2-46.3) % RDW 14.6 H (11.5-14.5) % Carbon Dioxide 19 L (22-30) mmol/L Glucose 112 H (74-99) mg/dL Total Bilirubin 2.2 H (0.2-1.3) mg/dL AST 290 H (14-36) U/L ALT 205 H (4-34) U/L Alkaline Phosphatase 142 H (38-126) U/L Amylase 2939 H* (30-110) U/L Lipase >76532 H (23-300) U/L Comments: gallbladder ultrasound reporting multiple gallstones, CBD 0.6 cm. Mild adenomyomatosis of the gallbladder cholelithiasis present. Some limitations due to bowel gas. No suspicious acute abdominal changes otherwise evident Assessment and Plan (1) Gallstone pancreatitis Narrative/Plan: 23-year-old female with acute onset of abdominal pain few days ago that progressively worsened associated with nausea vomiting, elevated LFTs as well as elevated amylase and lipase with abdominal ultrasound evidence of cholelithiasis consistent with a gallstone pancreatitis. Multiple gallstones noted on ultrasound, no significant CBD dilation however slightly dilated for patient's age at 0.6 cm. Labs are in cholestatic pattern need to consider possible CBD stone. Continue medical management at this time, agree with adding IV antibiotics secondary to low-grade fever and leukocytosis, concern for ascending cholangitis. No plans at this time for ERCP secondary to pancreatic inflammation and elevated enzymes. Further recommendations forthcoming regarding possible ERCP based on clinical course. Current Visit: Yes Status: Acute Code(s): K85.10 - BILIARY ACUTE PANCREATITIS WITHOUT NECROSIS OR INFECTION SNOMED Code(s): 17868341 (2) Abdominal pain Current Visit: Yes Status: Acute Code(s): R10.9 - UNSPECIFIED ABDOMINAL PAIN SNOMED Code(s): 71243023 (3) Cholelithiasis Current Visit: No Status: Acute Code(s): K80.20 - CALCULUS OF GALLBLADDER W/O CHOLECYSTITIS W/O OBSTRUCTION SNOMED Code(s): 673804325 (4) Obese Current Visit: Yes Status: Acute Code(s): E66.9 - OBESITY, UNSPECIFIED SNOMED Code(s): 585777068 Plan: 1. Continue symptomatic and supportive care 2. Agree with IV antibiotics 3. Pain medication as needed 4. Antiemetics as needed 5. Protonix 40 mg daily for GI prophylaxis 6. N.p.o. except for ice chips 7. Will continue to trend LFTs, lipase, CBC 8. Continue with recommendations from general surgery 9. Further recommendations forthcoming based on clinical course Thank you for this consultation, we will continue to follow. Dr. Salvatore Vega I agree with the dictator's note, documented as a scribe by Mary Hart.
--- NOTE | 2024-09-29 12:04 | P.GSCN ---
History of Present Illness Consult date: 09/29/24 History of present illness: CHIEF COMPLAINT: Abdominal pain HISTORY OF PRESENT ILLNESS: This is a 23-year-old female who presented to the hospital with complaints of pain mostly in the epigastric and right upper quadrant that reoccurred last night. Patient reports the pain does become a bandlike sensation across her upper abdomen and radiates to her back and up into her shoulder. Patient reports having come to the ER 2 days ago and was diagnosed with gallstones and recommended to follow-up with surgeon outpatient. Patient reports that the pain restarted and became very severe. She was having nausea and intermittent episodes of vomiting. Patient reports having chills and sweats. She came back to the ER for evaluation. Patient was noted to have elevated total bilirubin LFTs and lipase and diagnosed with gallstone pancreatitis. Patient denies any prior abdominal surgeries. She had a gallbladder ultrasound completed which had reported mild adenomyomatosis of the gallbladder with gallstones. Patient being seen by GI service. Surgical service on consult for gallstone pancreatitis. Patient low-grade temp, mild tachycardia with leukocytosis and has been started on antibiotic. PAST MEDICAL HISTORY: See below PAST SURGICAL HISTORY: See below MEDICATIONS: See below ALLERGIES: See below SOCIAL HISTORY: No illicit drug use. REVIEW OF SYSTEMS: CONSTITUTIONAL: Denies fever or chills. HEENT: Denies blurred vision, vision changes, or eye pain. Denies hemoptysis CARDIOVASCULAR: Denies chest pain or pressure. RESPIRATORY: No shortness of breath. GASTROINTESTINAL: See HPI for pertinent findings HEMATOLOGIC: Denies bleeding disorders. GENITOURINARY: Denies any blood in urine or increased urinary frequency. SKIN: Denies pruitis. Denies rash. PHYSICAL EXAM: VITAL SIGNS: Reviewed GENERAL: Well-developed in no acute distress. HEENT: No sclera icterus. Extraocular movements grossly intact. Moist buccal mucosa. Head is atraumatic, normocephalic. No nasal drainage. ABDOMEN: Soft. Nondistended. Mild tenderness of epigastric right upper quadrant and left upper quadrant areas. No rebound or guarding noted. NEUROLOGIC: Alert and oriented. Cranial nerves II through XII grossly intact. LABORATORY DATA: WBC is up from 8.36-13 Hgb 11.6 platelets 250 Sodium 135 potassium 5.1 creatinine 0.7 Total bilirubin 2.2 up to 3.2 AST 290 ALT 205 down to 166 alk phos 142-144 Lipase greater than 20,000 repeat 2800 Elevated amylase 2153 Urine hCG not detected IMAGING: Gallbladder ultrasound reports mild adenomyomatosis of the gallbladder. Cholelithiasis is present. Similar limitations due to bowel gas. No suspicious acute abdomen changes otherwise evident. ASSESSMENT: 1. Gallstone pancreatitis 2. Cholecystitis PLAN: - Keep patient n.p.o. - Added IV antibiotics - Repeat labs in a.m. - Await further GI recommendations about possible ERCP - Further recommendations forthcoming regarding cholecystectomy Physician Patient Access note has been reviewed by physician. Signing provider agrees with the documented findings, assessment, and plan of care. Past Medical History Past Medical History: Thyroid Disorder Additional Past Medical History / Comment(s): migraines, hashimotos, patient recently was in [place] regarding numbness and tremors. no official diagnosis after patient to f/u with neuro History of Any Multi-Drug Resistant Organisms: None Reported Past Surgical History: No Surgical Hx Reported Past Anesthesia/Blood Transfusion Reactions: No Reported Reaction Past Psychological History: Anxiety, Bipolar, Depression Smoking Status: Vaper Past Alcohol Use History: Rare Past Drug Use History: None Reported Medications and Allergies Home Medications Medication Instructions Recorded Confirmed Type Cyclobenzaprine [Flexeril] 10 mg PO TID PRN #15 tab 09/18/24 09/28/24 Rx Ketorolac [Toradol] 10 mg PO Q6HR PRN #15 tab 09/26/24 09/28/24 Rx Ondansetron Odt [Zofran Odt] 4 mg PO Q8HR PRN #10 tab 09/26/24 09/28/24 Rx Albuterol Sulfate [Albuterol 2 puff INHALATION RT-Q4H PRN 09/28/24 09/28/24 History Sulfate Hfa] Clindamycin Phosphate 1% Swab 1 applic TOPICAL DAILY 09/28/24 09/28/24 History Magnesium 100mg 1 tab PO DAILY 09/28/24 09/28/24 History Thiamine [Vitamin B-1] 100 mg PO DAILY 09/28/24 09/28/24 History Allergies Allergy/AdvReac Type Severity Reaction Status Date / Time No Known Allergies Allergy Verified 09/28/24 15:17 Surgical - Exam Vital Signs Temp Pulse Resp BP Pulse Ox 97.4 F L 74 18 109/75 100 09/28/24 08:50 09/28/24 08:50 09/28/24 08:50 09/28/24 08:50 09/28/24 08:50 Results - Labs 09/29/24 03:23 09/29/24 03:23 Abnormal Lab Results - Last 24 Hours (Table) 09/29/24 09/29/24 09/29/24 Range/Units 03:23 03:23 03:23 WBC 13.04 H (4.50-10.00) X 10*3/uL Hgb 11.6 L (12.0-15.0) g/dL Hct 36.2 L (37.2-46.3) % RDW 14.6 H (11.5-14.5) % Carbon Dioxide 21.0 L (21.6-31.8) mmol/L Calcium 8.5 L (8.7-10.3) mg/dL Total Bilirubin 3.2 H (0.3-1.2) mg/dL ALT 166 H (8-44) U/L Alkaline Phosphatase 144 H (41-126) U/L Albumin 3.6 L (3.8-4.9) g/dL Albumin/Globulin Ratio 1.29 L (1.60-3.17) Ratio Amylase 2153 H (23-121) U/L Lipase >2800 H (14-63) U/L Diabetes panel 09/29/24 Range/Units 03:23 Sodium 135 (135-145) mmol/L Potassium 5.1 (3.5-5.5) mmol/L Chloride 103 (96-109) mmol/L Carbon Dioxide 21.0 L (21.6-31.8) mmol/L BUN 9.2 (9.0-27.0) mg/dL Creatinine 0.7 (0.6-1.5) mg/dL Glucose 83 (70-110) mg/dL Calcium 8.5 L (8.7-10.3) mg/dL AST U/L ALT 166 H (8-44) U/L Alkaline Phosphatase 144 H (41-126) U/L Total Protein 6.4 (6.2-8.2) g/dL Albumin 3.6 L (3.8-4.9) g/dL Calcium panel 09/29/24 Range/Units 03:23 Calcium 8.5 L (8.7-10.3) mg/dL Albumin 3.6 L (3.8-4.9) g/dL Pituitary panel 09/29/24 Range/Units 03:23 Sodium 135 (135-145) mmol/L Potassium 5.1 (3.5-5.5) mmol/L Chloride 103 (96-109) mmol/L Carbon Dioxide 21.0 L (21.6-31.8) mmol/L BUN 9.2 (9.0-27.0) mg/dL Creatinine 0.7 (0.6-1.5) mg/dL Glucose 83 (70-110) mg/dL Calcium 8.5 L (8.7-10.3) mg/dL Adrenal panel 09/29/24 Range/Units 03:23 Sodium 135 (135-145) mmol/L Potassium 5.1 (3.5-5.5) mmol/L Chloride 103 (96-109) mmol/L Carbon Dioxide 21.0 L (21.6-31.8) mmol/L BUN 9.2 (9.0-27.0) mg/dL Creatinine 0.7 (0.6-1.5) mg/dL Glucose 83 (70-110) mg/dL Calcium 8.5 L (8.7-10.3) mg/dL Total Bilirubin 3.2 H (0.3-1.2) mg/dL AST U/L ALT 166 H (8-44) U/L Alkaline Phosphatase 144 H (41-126) U/L Total Protein 6.4 (6.2-8.2) g/dL Albumin 3.6 L (3.8-4.9) g/dL
--- NOTE | 2024-09-29 15:28 | P.PN ---
Subjective Progress Note Date: 09/29/24 Hospital Course: Patient is a very pleasant 23-year-old female with a past medical history of anxiety with depression, bipolar disorder, and Gonzalo's. She presented to the emergency department today with a chief complaint of abdominal pain. She reports the symptoms began initially on and have waxed and waned over the past few days. She was evaluated at the hospital on 09/26/2024 and diagnosed with gallstones and recommended to follow-up outpatient with PCP and general surgeon. Patient reports symptoms continued to wax and wane accompanied by nausea and vomiting and states pain became persistent and intractable yesterday evening around 4 PM and remained uncontrollable all night. She reports continued nausea, epigastric pain, left upper quadrant pain, and intermittent right upper quadrant pain. She states last episode of vomiting was yesterday evening. She denies having any fevers, chills, diaphoresis, headache, lightheadedness, dizziness, chest pain, palpitations, cough or congestion, or experiencing any difficulties with or changes in her urinary function. She reports her last menstrual cycle began 09/23/2024 and only lasted for 2 days. Upon arrival to our facility, patient underwent evaluation in the emergency department. Vital signs upon arrival blood pressure 109/75, heart rate 74, respiratory rate 18, temp 97.4 F, and SpO2 100% on room air. Gallbladder ultrasound completed showing multiple layering stones seen with comet tail artifact on anterior wall may represent adenomyomatosis. Labs completed and reviewed. CBC unremarkable. BMP showing high anion gap metabolic acidosis with chloride of 106, bicarb of 19, and anion gap of 12. Blood glucose 112. Lactic acid normal findings of 1.3. Liver profile showing hyperbilirubinemia with total bili of 2.2 transaminitis with AST of 298, ALT 205, and alkaline phosphatase of 142. Amylase critical at 2939 with lipase greater than 20,000. Serum hCG was negative for . Physical exam: Patient seen and fully evaluated at bedside this morning. She reports abdominal pain remains unchanged and remains in epigastric and left upper quadrant with occasional pain in the right upper quadrant. She reports nausea and vomiting is controlled. She denies any other complaints or concerns at this time. Vital signs reviewed and stable. General: Nontoxic, no distress and appears stated age. Derm: Skin warm and dry, normal coloration for ethnicity. Head: Atraumatic, normocephalic and symmetric. Eyes: EOM's intact, no lid lag, and anicteric sclera Mouth: no lip lesions, mucus membranes moist Cardiovascular: regular rate and rhythm with normal S1S2, no murmur, positive posterior tibial pulses bilaterally, and cap refill < 2 seconds. Lungs: Respirations even, regular, and unlabored on room air. Lungs CTA bilaterally, no rhonchi, no rales, no wheezing, and no accessory muscle usage. Abdominal: soft, diffuse upper abdominal tenderness worse in epigastric region and left upper quadrant, no guarding, no appreciable organomegaly Ext: ROM intact. No gross muscle atrophy, no edema, no contractures Neuro: Speech clear, face symmetrical and CN II-XII grossly intact with no noted focal neuro deficits Psych: Alert and oriented to person, place, time, and situation. Appropriate and pleasant affect. Assessment and Plan of Care: Gallstone pancreatitis Hyperbilirubinemia with transaminitis, rule out choledocholithiasis Anion gap metabolic acidosis Leukocytosis -General Surgery consulted, appreciate recommendations -Autism Tutor consulted, discussed plan of care with gastroenterology CYCLE LIAISON. -Continue with aggressive IV fluid hydration with lactated Ringer's at 130 cc/h. -Reglan 10 mg IVP every 6 hours as needed for nausea or vomiting. -GI prophylaxis with Protonix 40 mg IVP daily. -N.p.o. -Symptomatic care and pain management with Tylenol 650 mg p.o. every 6 hours as needed for mild pain and/or fever, Toradol 15 mg IVP every 6 hours as needed for moderate pain, and Dilaudid 1 mg IVP every 3 hours as needed for severe pain. IV antibiotics with Zosyn 3.375 g every 8 hours secondary to signs of infection with low-grade temps and leukocytosis -Continued close monitoring of liver function and CBC with repeat a.m. labs. Data and imaging reviewed: Morning labs reviewed. CBC showing leukocytosis with WBC count of 13.04 and normocytic anemia with hemoglobin of 11.6. BMP showing improvement but still low bicarb of 21. Blood glucose 83. Magnesium 8.5. Liver profile showing hyperbilirubinemia with total bili of 3.2, ALT of 166 and alkaline phosphatase of 144. Vital signs reviewed. Blood pressure 107/57, heart rate 107, respiratory rate 16, temp 99.7 F, and SpO2 of 93% on room air. Temperature high over the past 24 hours is 99.7 F. CODE STATUS:Full code DVT prophylaxis: SCDs Discussed with: Patient, patient's family member at bedside, RN, and gastroente rology CYCLE LIAISON Anticipated discharge date: Pending clinical course Anticipated discharge place: Home Patient was seen independently by Nurse Practitioner. This document was prepared using [employer] dictation software. Please allow for errors in marine geologist while rare they do occur. Krystian Junior, CYCLE LIAISON rendered care for this patient independently, reviewed the findings and plan as documented in the note above and agree with plan. I did not physically speak with or examine the patient on this date. Objective - Vital Signs Vital signs: Vital Signs Temp 99.7 F H 09/29/24 07:06 Pulse 107 H 09/29/24 07:06 Resp 16 09/29/24 07:06 BP 107/57 09/29/24 07:06 Pulse Ox 93 L 09/29/24 07:06 FiO2 Intake & Output 09/28/24 09/29/24 09/29/24 18:59 06:59 18:59 Weight 117.934 kg Other: Voiding Method Toilet # Voids 1 1 - Labs CBC & Chem 7: 09/29/24 03:23 09/29/24 03:23 Labs: Abnormal Lab Results - Last 24 Hours (Table) 09/28/24 09/29/24 09/29/24 Range/Units 09:15 03:23 03:23 WBC 13.04 H (4.50-10.00) X 10*3/uL Hgb 11.6 L (12.0-15.0) g/dL Hct 36.2 L (37.2-46.3) % RDW 14.6 H (11.5-14.5) % Carbon Dioxide 21.0 L (21.6-31.8) mmol/L Calcium 8.5 L (8.7-10.3) mg/dL Total Bilirubin 3.2 H (0.3-1.2) mg/dL ALT 166 H (8-44) U/L Alkaline Phosphatase 144 H (41-126) U/L Albumin 3.6 L (3.8-4.9) g/dL Albumin/Globulin Ratio 1.29 L (1.60-3.17) Ratio Amylase 2939 H* (30-110) U/L Lipase >18061 H (23-300) U/L
[2024-09-30 08:14] LABS: Basophils # (A) 0.04 X 10*3/uL (0.00-0.10); Basophils % (A) 0.2 %; Eosinophils # (A) 0.12 X 10*3/uL (0.04-0.35); Eosinophils % (A) 0.5 %; HCT 39.4 % (37.2-46.3); HGB 12.6 g/dL (12.0-15.0); Lymphocytes # (A) 1.55 X 10*3/uL (0.90-5.00); Lymphocytes % (A) 6.8 %; MCH 28.1 pg (27.0-32.0); MCV 87.9 FL (80.0-97.0); Mean Platelet Volume 12.1 FL (9.5-12.2); Monocytes % (A) 5.7 %; NRBC Per 100 WBC 0 X 10*3/uL (0.00-0.01); Neutrophils # (A) 19.65 X 10*3/uL (1.80-7.70); Neutrophils % (A) 86.3 %; Platelet Count 285 X 10*3/uL (140-440); RBC 4.48 X 10*6/uL (4.10-5.20); RDW 14.6 % (11.5-14.5); WBC 22.78 X 10*3/uL (4.50-10.00)
[2024-09-30] MEDS: CALCIUM CARBONATE 500 MG CHEWABLE PO PRN (08:43)
[2024-09-30 08:58] LABS: Lipase 828 U/L (14-63)
[2024-09-30 09:05] LABS: ALT 109 U/L (8-44); AST 50 U/L (13-35); Albumin 3.4 g/dL (3.8-4.9); Alkaline Phosphatase 141 U/L (41-126); BUN/Creat Ratio 11.29 Ratio (12.00-20.00); Blood Urea Nitrogen 7.9 mg/dL (9.0-27.0); Calcium 8.8 mg/dL (8.7-10.3); Carbon Dioxide 19.9 mmol/L (21.6-31.8); Chloride 100 mmol/L (96-109); Globulin 3.1 g/dL (1.6-3.3); Glucose 66 mg/dL (70-110); Potassium 4.1 mmol/L (3.5-5.5); Sodium 135 mmol/L (135-145); Total Bilirubin 1.5 mg/dL (0.3-1.2); Total Protein 6.5 g/dL (6.2-8.2)
[2024-09-30] MEDS ORDERED: DEXTROSE 50% SYRINGE 50 ML IVP PRN (09:18)
[2024-09-30] MEDS: DEXTROSE 50% SYRINGE 50 ML IVP PRN (09:47)
[2024-09-30 10:05] LABS: Glucose,Whole Blood 121 mg/dL (70-110)
--- NOTE | 2024-09-30 11:56 | P.PN ---
Subjective Progress Note Date: 09/30/24 Principal diagnosis: Gallstone pancreatitis This a pleasant 23-year-old female with no significant past medical history presented to the emergency department with complaints of right upper quadrant abdominal pain as well as left lower abdominal quadrant pain radiating to her back. Pain started then it had gone away then it returned yesterday and got worse associated with nausea and vomiting. She presented to the emergency department for further evaluation. She had a gallbladder ultrasound reporting multiple gallstones, CBD 0.6 cm. Mild adenomyomatosis of the g allbladder cholelithiasis present. Some limitations due to bowel gas. No suspicious acute abdominal changes otherwise evident. Patient was afebrile on admission. No leukocytosis. Elevated LFTs total bilirubin 2.2 AST 298 ALT 205 alkaline phosphatase 142 amylase 2939 lipase greater than 20,000. Today's repeat labs WBC 13 hemoglobin 11.6 platelet count 250,000 sodium 135 potassium 5.1 BUN 9.2 creatinine 0.7 total bilirubin 3.2 AST not resulted ALT 166 alkaline phosphatase 144 amylase 2153 lipase greater than 2800 She reports she still has abdominal pain mostly in the right upper quadrant at this time. Associated with nausea and some vomiting. She does feel like she has chills. She has low-grade fever of 99.7. 09/30/2024 Patient is seen and examined today as a follow-up. She continues to have abdominal pain across her upper abdomen and mid to lower left abdomen. States she feels like it might be a little bit better. Still some nausea but no vomiting. Is complaining of heartburn. Low-grade fever with max temp of 99.9 through the night, afebrile this morning. White blood count continues to trend up today 22.7 hemoglobin 12.6 platelet count 285,000. LFTs are trending down total bilirubin 1.5 AST 50 ALT 109 alkaline phosphatase 141 Lipase 828 Objective - Vital Signs Vital signs: Vital Signs Temp 99.4 F 09/30/24 07:57 Pulse 107 H 09/30/24 07:57 Resp 18 09/30/24 07:57 BP 118/71 09/30/24 07:57 Pulse Ox 95 09/30/24 07:57 FiO2 Intake & Output 09/29/24 09/30/24 09/30/24 18:59 06:59 18:59 Other: Voiding Method Toilet Toilet Toilet # Voids 1 4 - Exam General appearance: The patient is alert, oriented, appears in no acute distress. Obese. HET: Head is normocephalic and atraumatic. Conjunctiva pink. Sclera anicteric. Neck: Supple without lymphadenopathy. Abdomen: Soft, epigastric and left mid quadrant tenderness with palpation, nondistended. Extremities: Normal skin color and turgor. No pedal edema Skin: No rashes, no jaundice Neurological: No focal deficits. Alert and oriented. - Labs CBC & Chem 7: 09/30/24 03:42 09/30/24 03:42 Labs: Abnormal Lab Results - Last 24 Hours (Table) 09/29/24 09/30/24 09/30/24 Range/Units 03:23 03:42 03:42 WBC 22.78 H (4.50-10.00) X 10*3/uL RDW 14.6 H (11.5-14.5) % Immature Gran # 0.12 H (0.00-0.04) X 10*3/uL Neutrophils # 19.65 H (1.80-7.70) X 10*3/uL Monocytes # 1.30 H (0.20-1.00) X 10*3/uL Carbon Dioxide 19.9 L (21.6-31.8) mmol/L Anion Gap 15.10 H (4.00-12.00) mmol/L BUN 7.9 L (9.0-27.0) mg/dL BUN/Creatinine Ratio 11.29 L (12.00-20.00) Ratio Glucose 66 L (70-110) mg/dL POC Glucose (mg/dL) (70-110) mg/dL Total Bilirubin 1.5 H (0.3-1.2) mg/dL AST 50 H (13-35) U/L ALT 109 H (8-44) U/L Alkaline Phosphatase 141 H (41-126) U/L Albumin 3.4 L (3.8-4.9) g/dL Albumin/Globulin Ratio 1.10 L (1.60-3.17) Ratio Lipase >2800 H 828 H (14-63) U/L 09/30/24 Range/Units 10:03 WBC (4.50-10.00) X 10*3/uL RDW (11.5-14.5) % Immature Gran # (0.00-0.04) X 10*3/uL Neutrophils # (1.80-7.70) X 10*3/uL Monocytes # (0.20-1.00) X 10*3/uL Carbon Dioxide (21.6-31.8) mmol/L Anion Gap (4.00-12.00) mmol/L BUN (9.0-27.0) mg/dL BUN/Creatinine Ratio (12.00-20.00) Ratio Glucose (70-110) mg/dL POC Glucose (mg/dL) 121 H (70-110) mg/dL Total Bilirubin (0.3-1.2) mg/dL AST (13-35) U/L ALT (8-44) U/L Alkaline Phosphatase (41-126) U/L Albumin (3.8-4.9) g/dL Albumin/Globulin Ratio (1.60-3.17) Ratio Lipase (14-63) U/L Assessment and Plan (1) Gallstone pancreatitis Narrative/Plan: 23-year-old female with acute onset of abdominal pain few days ago that progressively worsened associated with nausea vomiting, elevated LFTs as well as elevated amylase and lipase with abdominal ultrasound evidence of cholelithiasis consistent with a gallstone pancreatitis. Multiple gallstones noted on ultrasound, no significant CBD dilation however slightly dilated for patient's age at 0.6 cm. Labs are in cholestatic pattern need to consider possible CBD stone. Continue medical management at this time, agree with adding IV antibiotics secondary to low-grade fever and leukocytosis, concern for ascending cholangitis. LFTs are trending down, with less suspicion for choledocholithiasis. No plans at this time for ERCP. Continue to trend labs. Continue IV antibiotics. Current Visit: Yes Status: Acute Code(s): K85.10 - BILIARY ACUTE PANCREATITIS WITHOUT NECROSIS OR INFECTION SNOMED Code(s): 03561040 (2) Transaminitis Narrative/Plan: Improving, LFTs trending down. Current Visit: Yes Status: Acute Code(s): R74.01 - ELEVATION OF LEVELS OF LIVER TRANSAMINASE LEVELS SNOMED Code(s): 237227429 (3) Abdominal pain Current Visit: Yes Status: Acute Code(s): R10.9 - UNSPECIFIED ABDOMINAL PAIN SNOMED Code(s): 35644768 (4) Cholelithiasis Current Visit: No Status: Acute Code(s): K80.20 - CALCULUS OF GALLBLADDER W/O CHOLECYSTITIS W/O OBSTRUCTION SNOMED Code(s): 214322944 (5) Obese Current Visit: Yes Status: Acute Code(s): E66.9 - OBESITY, UNSPECIFIED SNOMED Code(s): 556965693 Plan: 1. Continue symptomatic and supportive care 2. N.p.o., may advance to clear liquid diet as tolerated if okay with general surgery 3. Continue pain medication as needed 4. Continue aggressive IV hydration 5. Continue IV antibiotics 6. Continue Protonix 40 mg daily, Tums ordered as needed for heartburn 7. Antiemetics as needed 8. Daily CBC, CMP 9. No plans for ERCP. Continue with recommendations from general surgery. Thank you for this consultation, we will continue to follow along closely. Dr. Salvatore Vega I agree with the dictator's note, documented as a scribe by Mary Hart.
--- NOTE | 2024-09-30 13:32 | P.PN ---
Subjective Progress Note Date: 09/30/24 SURGICAL PROGRESS NOTE CHIEF COMPLAINT: Gallstone pancreatitis HISTORY OF PRESENT ILLNESS: Patient continues to have abdominal pain across upper abdomen and slightly on the left side. She reports the pain in the right upper quadrant is less. She denies any nausea or vomiting. Low-grade temp of 99.9 last night. Mildly tachycardic. White count is up to 22 total bilirubin is down from 3.2-1.5 LFTs are trending downwards. Patient seen by GI service no plans for ERCP. PHYSICAL EXAM: VITAL SIGNS: Reviewed. GENERAL: Well-developed in no acute distress. ABDOMEN: Soft. Nondistended. Mild tenderness epigastric and left upper quadrant NEUROLOGIC: Alert and oriented. Cranial nerves II through XII grossly intact. ASSESSMENT: 1. Gallstone pancreatitis 2. Cholecystitis PLAN: - GI service reported no plans for ERCP due to improvement in patient's blood work - Patient scheduled for Robotic cholecystectomy today with Dr. Moore - Continue IV antibiotics - Keep patient n.p.o. - Continue IV fluids Physician Brand Development Manager note has been reviewed by physician. Signing provider agrees with the documented findings, assessment, and plan of care. Objective - Vital Signs Vital signs: Vital Signs Temp 99.4 F 09/30/24 07:57 Pulse 107 H 09/30/24 07:57 Resp 18 09/30/24 07:57 BP 118/71 09/30/24 07:57 Pulse Ox 95 09/30/24 07:57 FiO2 Intake & Output 09/29/24 09/30/24 09/30/24 18:59 06:59 18:59 Other: Voiding Method Toilet Toilet Toilet # Voids 1 4 - Labs CBC & Chem 7: 09/30/24 03:42 09/30/24 03:42 Labs: Abnormal Lab Results - Last 24 Hours (Table) 09/30/24 09/30/24 09/30/24 Range/Units 03:42 03:42 10:03 WBC 22.78 H (4.50-10.00) X 10*3/uL RDW 14.6 H (11.5-14.5) % Immature Gran # 0.12 H (0.00-0.04) X 10*3/uL Neutrophils # 19.65 H (1.80-7.70) X 10*3/uL Monocytes # 1.30 H (0.20-1.00) X 10*3/uL Carbon Dioxide 19.9 L (21.6-31.8) mmol/L Anion Gap 15.10 H (4.00-12.00) mmol/L BUN 7.9 L (9.0-27.0) mg/dL BUN/Creatinine Ratio 11.29 L (12.00-20.00) Ratio Glucose 66 L (70-110) mg/dL POC Glucose (mg/dL) 121 H (70-110) mg/dL Total Bilirubin 1.5 H (0.3-1.2) mg/dL AST 50 H (13-35) U/L ALT 109 H (8-44) U/L Alkaline Phosphatase 141 H (41-126) U/L Albumin 3.4 L (3.8-4.9) g/dL Albumin/Globulin Ratio 1.10 L (1.60-3.17) Ratio Lipase 828 H (14-63) U/L Assessment and Plan Assessment: OR today Time with Patient: Greater than 30
[2024-09-30 13:49] LABS: Glucose,Whole Blood 71 mg/dL (70-110)
--- NOTE | 2024-09-30 14:13 | P.PN ---
Subjective Progress Note Date: 09/30/24 Hospital Course: Patient is a very pleasant 23-year-old female with a past medical history of anxiety with depression, bipolar disorder, and Gonzalo's. She presented to the emergency department today with a chief complaint of abdominal pain. She reports the symptoms began initially on and have waxed and waned over the past few days. She was evaluated at the hospital on 09/26/2024 and diagnosed with gallstones and recommended to follow-up outpatient with PCP and general surgeon. Patient reports symptoms continued to wax and wane accompanied by nausea and vomiting and states pain became persistent and intractable yesterday evening around 4 PM and remained uncontrollable all night. She reports continued nausea, epigastric pain, left upper quadrant pain, and intermittent right upper quadrant pain. She states last episode of vomiting was yesterday evening. She denies having any fevers, chills, diaphoresis, headache, lightheadedness, dizziness, chest pain, palpitations, cough or congestion, or experiencing any difficulties with or changes in her urinary function. She reports her last menstrual cycle began 09/23/2024 and only lasted for 2 days. Upon arrival to our facility, patient underwent evaluation in the emergency department. Vital signs upon arrival blood pressure 109/75, heart rate 74, respiratory rate 18, temp 97.4 F, and SpO2 100% on room air. Gallbladder ultrasound completed showing multiple layering stones seen with comet tail artifact on anterior wall may represent adenomyomatosis. Labs completed and reviewed. CBC unremarkable. BMP showing high anion gap metabolic acidosis with chloride of 106, bicarb of 19, and anion gap of 12. Blood glucose 112. Lactic acid normal findings of 1.3. Liver profile showing hyperbilirubinemia with total bili of 2.2 transaminitis with AST of 298, ALT 205, and alkaline phosphatase of 142. Amylase critical at 2939 with lipase greater than 20,000. Serum hCG was negative for . Physical exam: Patient seen and fully evaluated at bedside this morning. She reports abdominal pain remains to left upper quadrant and states continued resolution of nausea and vomiting. She denies any other complaints or concerns at this time. Patient and her mother at bedside updated them provider chest spoke with gastroenterology stating no need for ERCP secondary to improvement in liver function and bilirubin. Vital signs reviewed and stable. General: Nontoxic, no distress and appears stated age. Derm: Skin warm and dry, normal coloration for ethnicity. Head: Atraumatic, normocephalic and symmetric. Eyes: EOM's intact, no lid lag, and anicteric sclera Mouth: no lip lesions, mucus membranes moist Cardiovascular: regular rate and rhythm with normal S1S2, no murmur, positive posterior tibial pulses bilaterally, and cap refill < 2 seconds. Lungs: Respirations even, regular, and unlabored on room air. Lungs CTA bilaterally, no rhonchi, no rales, no wheezing, and no accessory muscle usage. Abdominal: soft, diffuse upper abdominal tenderness worse in epigastric region and left upper quadrant, no guarding, no appreciable organomegaly Ext: ROM intact. No gross muscle atrophy, no edema, no contractures Neuro: Speech clear, face symmetrical and CN II-XII grossly intact with no noted focal neuro deficits Psych: Alert and oriented to person, place, time, and situation. Appropriate and pleasant affect. Assessment and Plan of Care: Gallstone pancreatitis Hyperbilirubinemia with transaminitis, rule out choledocholithiasis Anion gap metabolic acidosis Leukocytosis -General Surgery following, discussed plan of care with general surgery PA. Patient to undergo laparoscopic cholecystectomy later today with Dr. Moore. -Sales Representative Sales Manager following, discussed plan of care with gastroenterology KETTLE CLEANER stating no need for ERCP secondary to improvement in liver function. -Continue with aggressive IV fluid hydration with lactated Ringer's at 130 cc/h. -Reglan 10 mg IVP every 6 hours as needed for nausea or vomiting. -GI prophylaxis with Protonix 40 mg IVP daily. -N.p.o. -Symptomatic care and pain management with Tylenol 650 mg p.o. every 6 hours as needed for mild pain and/or fever, Toradol 15 mg IVP every 6 hours as needed for moderate pain, and Dilaudid 1 mg IVP every 3 hours as needed for severe pain. IV antibiotics with Zosyn 3.375 g every 8 hours secondary to signs of infection with low-grade temps and leukocytosis -Continued close monitoring of liver function and CBC with repeat a.m. labs. Data and imaging reviewed: Morning labs reviewed. CBC showing worsening leukocytosis with WBC count of 22.78, immature granulocytes of 0.12, neutrophils 19.65, and monocytes of 1.30. BMP showing high anion gap metabolic acidosis with chloride of 100, bicarb of 19.9, and anion gap of 15.10. Blood glucose was low this morning at 66 and patient placed on glycemic protocol and provided with IV dextrose. Liver profile showing improvement in hyperbilirubinemia with total bili decreasing from 3.2 down to 1.5 as well as improvement in transaminitis with AST of 50, ALT of 109, and alkaline phosphatase of 141. Lipase continues to downtrend from initial greater than 20,000 and down to greater than 2800 and today 828. Vital signs reviewed. Blood pressure 118/71, heart rate 107, respiratory rate 18, temp 99.4 F, and SpO2 of 95% on 2 L. Temperature high over the past 24 hours was 99.9 F. CODE STATUS:Full code DVT prophylaxis: SCDs Discussed with: Patient, patient's mother at bedside, RN, gastroenterology KETTLE CLEANER, and general surgery PA Anticipated discharge date: Pending clinical course Anticipated discharge place: Home Patient was seen independently by Nurse Practitioner. This document was prepared using [employer] dictation software. Please allow for errors in front desk receptionist while rare they do occur. Krystian Junior NP rendered care for this patient independently, reviewed the findings and plan as documented in the note above and agree with plan. I did not physically speak with or examine the patient on this date. Objective - Vital Signs Vital signs: Vital Signs Temp 99.4 F 09/30/24 07:57 Pulse 107 H 09/30/24 07:57 Resp 18 09/30/24 07:57 BP 118/71 09/30/24 07:57 Pulse Ox 95 09/30/24 07:57 FiO2 Intake & Output 09/29/24 09/30/24 09/30/24 18:59 06:59 18:59 Other: Voiding Method Toilet Toilet # Voids 1 4 - Labs CBC & Chem 7: 09/30/24 03:42 09/30/24 03:42 Labs: Abnormal Lab Results - Last 24 Hours (Table) 09/29/24 09/30/24 09/30/24 Range/Units 03:23 03:42 03:42 WBC 22.78 H (4.50-10.00) X 10*3/uL RDW 14.6 H (11.5-14.5) % Immature Gran # 0.12 H (0.00-0.04) X 10*3/uL Neutrophils # 19.65 H (1.80-7.70) X 10*3/uL Monocytes # 1.30 H (0.20-1.00) X 10*3/uL Carbon Dioxide 19.9 L (21.6-31.8) mmol/L Anion Gap 15.10 H (4.00-12.00) mmol/L BUN 7.9 L (9.0-27.0) mg/dL BUN/Creatinine Ratio 11.29 L (12.00-20.00) Ratio Glucose 66 L (70-110) mg/dL Total Bilirubin 1.5 H (0.3-1.2) mg/dL AST 50 H (13-35) U/L ALT 109 H (8-44) U/L Alkaline Phosphatase 141 H (41-126) U/L Albumin 3.4 L (3.8-4.9) g/dL Albumin/Globulin Ratio 1.10 L (1.60-3.17) Ratio Amylase 2153 H (23-121) U/L Lipase >2800 H 828 H (14-63) U/L
[2024-09-30] MEDS ORDERED: fentaNYL (PF) 50 MCG/ML 2 ML AMP ONE (15:24)
[2024-09-30] MEDS ORDERED: HEPARIN SODIUM,PORCINE 5,000 UNIT/ML 1 ML VIAL ONE (15:24)
[2024-09-30] MEDS ORDERED: LIDOCAINE 4% LTA KIT (4 ML) TOPICAL ONE (15:24)
[2024-09-30] MEDS ORDERED: SUCCINYLCHOLINE CHLORIDE 200 MG/10 ML VIAL IV ONE (15:24)
[2024-09-30] MEDS ORDERED: GLYCOPYRROLATE 0.2 MG/ML 2 ML VIAL ONE (15:24)
[2024-09-30] MEDS ORDERED: ONDANSETRON 4 MG/2 ML VIAL ONE (15:24)
[2024-09-30] MEDS: IV FLUID CONTINUATION 1,000 ML IV ONE (15:24)
[2024-09-30] MEDS ORDERED: ROCURONIUM 10 MG/ML (5 ML VIAL) IV ONE (15:24)
[2024-09-30] MEDS ORDERED: HYDROmorphone (PF) 1 MG/ML ONE (15:24)
[2024-09-30] MEDS ORDERED: PROPOFOL 10 MG/ML 20 ML VIAL IV ONE (15:24)
[2024-09-30] MEDS ORDERED: DEXAMETHASONE SOD PHOSPHATE 4 MG/ML 1 ML VIAL ONE (15:24)
[2024-09-30] MEDS ORDERED: PHENYLEPHRINE-0.9% NACL SYG 1,000 MCG/10 ML SYRINGE ONE (15:24)
[2024-09-30] MEDS ORDERED: LIDOCAINE 1% INJ 10MG/ML (20 ML MDV) ONE (15:24)
[2024-09-30] MEDS ORDERED: MIDAZOLAM 2 MG/2 ML VIAL ONE (15:24)
[2024-09-30] MEDS ORDERED: NEOSTIGMINE 1 MG/ML 10 ML VIAL ONE (15:24)
[2024-09-30] MEDS: LIDOCAINE 1%-EPI 1:100,000 20 ML VIAL SQ ONE (15:59)
[2024-09-30] MEDS: LACTATED RINGERS 1,000 ML IV ONE (16:42)
[2024-09-30] MEDS: ALBUTEROL NEBULIZED 2.5 MG/3 ML INHALATION PRN (18:37)
[2024-09-30 21:12] LABS: Glucose,Whole Blood 111 mg/dL (70-110)
--- NOTE | 2024-09-30 21:38 | P.OP ---
Date of Procedure: 09/30/24 Preoperative Diagnosis: gallstone pancreatitis Postoperative Diagnosis: acute cholecystitis Procedure(s) Performed: robotic cholecystectomy Anesthesia: KULWANT Surgeon: Wyatt Moore Pathology: none sent Condition: stable Disposition: PACU Indications for Procedure: gallstone pancreatitis Operative Findings: acute cholecystitis Description of Procedure: Patient was brought to the operative suite where she was cleaned and draped in sterile fashion. A timeout was performed and everyone agreed w/ the information recited. Next a #15 blade was used to make an incision in the left upper quadrantr. A 5mm visiport was used to gain access to the abdomen. Three more working ports were placed in the mid abdomen and two in the right upper quadrant.The 5mm visiport was then exchanged for an 8mm port. The gallbladder was observed and grasped and retracted cephalad/laterally. Of note there was a moderate amount of murky/ascitic appearing fluid assumed to be inflammatory from pancreatitis. The dissection was carried out from lateral to medial dissecting out the cystic duct and cystic artery to obtain the critical view of safety. Once skeltonized, the duct and artery was clipped distally and proximally and then ligated with electrocautery. The gallbladder was carefully taken off the liver bed in a controlled fashion and placed in an endocatch bag and removed out of the abdomen. Suction academic affairs coordinator was then used to suction the ascitic fluid out of the abdomen. A hemostatic timeout was done and no bleeding was observed. The left upper quadrant incision was closed using a richard juliann device with an 0 vicryl suture. The skin was closed using 4-0 vicryl suture in a interupted fashion. The patient tolerated the procedure well and was transported to pacu in stable condition.
--- NOTE | 2024-09-30 21:39 | P.PN ---
Subjective pt did well with surgery. please see op note for details. If patient does well overnight with pain/diet and labs are normalizing in am, ok for discharge Objective - Vital Signs Vital signs: Vital Signs Temp 97.3 F L 09/30/24 19:30 Pulse 123 H 09/30/24 19:30 Resp 18 09/30/24 19:30 BP 120/78 09/30/24 19:30 Pulse Ox 96 09/30/24 19:30 FiO2 Intake & Output 09/30/24 09/30/24 10/01/24 06:59 18:59 06:59 Intake Total 1350 Output Total 5 Balance 1345 Weight 117.934 kg Intake: IV 1350 Output: Estimated Blood Loss 5 Other: Voiding Method Toilet Toilet # Voids 4 - Labs CBC & Chem 7: 09/30/24 03:42 09/30/24 03:42 Labs: Abnormal Lab Results - Last 24 Hours (Table) 09/30/24 09/30/24 09/30/24 Range/Units 03:42 03:42 10:03 WBC 22.78 H (4.50-10.00) X 10*3/uL RDW 14.6 H (11.5-14.5) % Immature Gran # 0.12 H (0.00-0.04) X 10*3/uL Neutrophils # 19.65 H (1.80-7.70) X 10*3/uL Monocytes # 1.30 H (0.20-1.00) X 10*3/uL Carbon Dioxide 19.9 L (21.6-31.8) mmol/L Anion Gap 15.10 H (4.00-12.00) mmol/L BUN 7.9 L (9.0-27.0) mg/dL BUN/Creatinine Ratio 11.29 L (12.00-20.00) Ratio Glucose 66 L (70-110) mg/dL POC Glucose (mg/dL) 121 H (70-110) mg/dL Total Bilirubin 1.5 H (0.3-1.2) mg/dL AST 50 H (13-35) U/L ALT 109 H (8-44) U/L Alkaline Phosphatase 141 H (41-126) U/L Albumin 3.4 L (3.8-4.9) g/dL Albumin/Globulin Ratio 1.10 L (1.60-3.17) Ratio Lipase 828 H (14-63) U/L 09/30/24 Range/Units 21:11 WBC (4.50-10.00) X 10*3/uL RDW (11.5-14.5) % Immature Gran # (0.00-0.04) X 10*3/uL Neutrophils # (1.80-7.70) X 10*3/uL Monocytes # (0.20-1.00) X 10*3/uL Carbon Dioxide (21.6-31.8) mmol/L Anion Gap (4.00-12.00) mmol/L BUN (9.0-27.0) mg/dL BUN/Creatinine Ratio (12.00-20.00) Ratio Glucose (70-110) mg/dL POC Glucose (mg/dL) 111 H (70-110) mg/dL Total Bilirubin (0.3-1.2) mg/dL AST (13-35) U/L ALT (8-44) U/L Alkaline Phosphatase (41-126) U/L Albumin (3.8-4.9) g/dL Albumin/Globulin Ratio (1.60-3.17) Ratio Lipase (14-63) U/L
[2024-10-01 01:27] LABS: Glucose,Whole Blood 122 mg/dL (70-110)
[2024-10-01 05:18] LABS: Glucose,Whole Blood 121 mg/dL (70-110)
[2024-10-01 07:59] LABS: HCT 31.6 % (37.2-46.3); MCH 27.3 pg (27.0-32.0); MCHC 31.6 g/dL (32.0-37.0); MCV 86.3 FL (80.0-97.0); Mean Platelet Volume 12.1 FL (9.5-12.2); NRBC Per 100 WBC 0 X 10*3/uL (0.00-0.01); Platelet Count 217 X 10*3/uL (140-440); RBC 3.66 X 10*6/uL (4.10-5.20); RDW 14.7 % (11.5-14.5)
[2024-10-01 08:04] VITALS: RESP 16
[2024-10-01] MEDS: CYCLOBENZAPRINE 10 MG TAB PO PRN (08:25)
[2024-10-01] MEDS: HYDROcodone/APAP 5-325MG 1 EACH TAB PO PRN (08:25)
[2024-10-01 09:06] LABS: Magnesium 1.8 mg/dL (1.5-2.4)
[2024-10-01 09:11] LABS: ALT 64 U/L (8-44); AST 29 U/L (13-35); Albumin 2.7 g/dL (3.8-4.9); Albumin/Globulin Ratio 1.08 Ratio (1.60-3.17); Alkaline Phosphatase 104 U/L (41-126); Blood Urea Nitrogen 5.4 mg/dL (9.0-27.0); Calcium 8.2 mg/dL (8.7-10.3); Carbon Dioxide 21.1 mmol/L (21.6-31.8); Chloride 103 mmol/L (96-109); Globulin 2.5 g/dL (1.6-3.3); Glucose 133 mg/dL (70-110); Potassium 4.1 mmol/L (3.5-5.5); Sodium 135 mmol/L (135-145); Total Bilirubin 0.8 mg/dL (0.3-1.2); Total Protein 5.2 g/dL (6.2-8.2)
--- NOTE | 2024-10-01 10:35 | P.PN ---
Subjective Progress Note Date: 10/01/24 Principal diagnosis: Gallstone pancreatitis This a pleasant 23-year-old female with no significant past medical history presented to the emergency department with complaints of right upper quadrant abdominal pain as well as left lower abdominal quadrant pain radiating to her back. Pain started then it had gone away then it returned yesterday and got worse associated with nausea and vomiting. She presented to the emergency department for further evaluation. She had a gallbladder ultrasound reporting multiple gallstones, CBD 0.6 cm. Mild adenomyomatosis of the g allbladder cholelithiasis present. Some limitations due to bowel gas. No suspicious acute abdominal changes otherwise evident. Patient was afebrile on admission. No leukocytosis. Elevated LFTs total bilirubin 2.2 AST 298 ALT 205 alkaline phosphatase 142 amylase 2939 lipase greater than 20,000. Today's repeat labs WBC 13 hemoglobin 11.6 platelet count 250,000 sodium 135 potassium 5.1 BUN 9.2 creatinine 0.7 total bilirubin 3.2 AST not resulted ALT 166 alkaline phosphatase 144 amylase 2153 lipase greater than 2800 She reports she still has abdominal pain mostly in the right upper quadrant at this time. Associated with nausea and some vomiting. She does feel like she has chills. She has low-grade fever of 99.7. 09/30/2024 Patient is seen and examined today as a follow-up. She continues to have abdominal pain across her upper abdomen and mid to lower left abdomen. States she feels like it might be a little bit better. Still some nausea but no vomiting. Is complaining of heartburn. Low-grade fever with max temp of 99.9 through the night, afebrile this morning. White blood count continues to trend up today 22.7 hemoglobin 12.6 platelet count 285,000. LFTs are trending down total bilirubin 1.5 AST 50 ALT 109 alkaline phosphatase 141 Lipase 828 10/01/2024 Patient is seen and examined today as a follow-up. She is postop day #1 for laparoscopic cholecystectomy. States abdominal pain has improved. She has surgical pain that she is complaining about. She has been up and ambulating and voiding well. Had some breakfast this morning with a little discomfort following. No nausea or vomiting. She has been afebrile. Leukocytosis improving with WBC of 17 today LFTs continue to trend down. Total bilirubin 0.8 AST 29 ALT 64 alkaline phosphatase 104. Objective - Vital Signs Vital signs: Vital Signs Temp 98.3 F 10/01/24 08:00 Pulse 100 10/01/24 08:00 Resp 16 10/01/24 08:00 BP 129/81 10/01/24 08:00 Pulse Ox 95 10/01/24 08:00 FiO2 Intake & Output 09/30/24 10/01/24 10/01/24 18:59 06:59 18:59 Intake Total 1350 Output Total 5 Balance 1345 Weight 117.934 kg Intake: IV 1350 Output: Estimated Blood Loss 5 Other: Voiding Method Toilet Toilet # Voids 3 - Exam General appearance: The patient is alert, oriented, appears in no acute distress. Obese. HET: Head is normocephalic and atraumatic. Conjunctiva pink. Sclera anicteric. Neck: Supple without lymphadenopathy. Abdomen: Soft, tenderness, nondistended. Extremities: Normal skin color and turgor. No pedal edema Skin: No rashes, no jaundice Neurological: No focal deficits. Alert and oriented. - Labs CBC & Chem 7: 10/01/24 03:55 10/01/24 03:55 Labs: Abnormal Lab Results - Last 24 Hours (Table) 09/30/24 09/30/24 09/30/24 Range/Units 03:42 10:03 21:11 WBC (4.50-10.00) X 10*3/uL RBC (4.10-5.20) X 10*6/uL Hgb (12.0-15.0) g/dL Hct (37.2-46.3) % MCHC (32.0-37.0) g/dL RDW (11.5-14.5) % Carbon Dioxide 19.9 L (21.6-31.8) mmol/L Anion Gap 15.10 H (4.00-12.00) mmol/L BUN 7.9 L (9.0-27.0) mg/dL BUN/Creatinine Ratio 11.29 L (12.00-20.00) Ratio Glucose 66 L (70-110) mg/dL POC Glucose (mg/dL) 121 H 111 H (70-110) mg/dL Total Bilirubin 1.5 H (0.3-1.2) mg/dL AST 50 H (13-35) U/L ALT 109 H (8-44) U/L Alkaline Phosphatase 141 H (41-126) U/L Albumin 3.4 L (3.8-4.9) g/dL Albumin/Globulin Ratio 1.10 L (1.60-3.17) Ratio Lipase 828 H (14-63) U/L 10/01/24 10/01/24 10/01/24 Range/Units 01:26 03:55 05:17 WBC 17.20 H (4.50-10.00) X 10*3/uL RBC 3.66 L (4.10-5.20) X 10*6/uL Hgb 10.0 L (12.0-15.0) g/dL Hct 31.6 L (37.2-46.3) % MCHC 31.6 L (32.0-37.0) g/dL RDW 14.7 H (11.5-14.5) % Carbon Dioxide (21.6-31.8) mmol/L Anion Gap (4.00-12.00) mmol/L BUN (9.0-27.0) mg/dL BUN/Creatinine Ratio (12.00-20.00) Ratio Glucose (70-110) mg/dL POC Glucose (mg/dL) 122 H 121 H (70-110) mg/dL Total Bilirubin (0.3-1.2) mg/dL AST (13-35) U/L ALT (8-44) U/L Alkaline Phosphatase (41-126) U/L Albumin (3.8-4.9) g/dL Albumin/Globulin Ratio (1.60-3.17) Ratio Lipase (14-63) U/L Assessment and Plan (1) Gallstone pancreatitis Narrative/Plan: 23-year-old female with acute onset of abdominal pain few days ago that progressively worsened associated with nausea vomiting, elevated LFTs as well as elevated amylase and lipase with abdominal ultrasound evidence of cholelithiasis consistent with a gallstone pancreatitis. Multiple gallstones noted on ultrasound, no significant CBD dilation however slightly dilated for patient's age at 0.6 cm. Labs are in cholestatic pattern need to consider possible CBD stone. Continue medical management at this time, agree with adding IV antibiotics secondary to low-grade fever and leukocytosis, concern for ascending cholangitis. LFTs are trending down, with less suspicion for choledocholithiasis. No plans at this time for ERCP. Continue to trend labs. Continue IV antibiotics. Patient is status post robotic cholecystectomy with findings of acute cholecystitis Current Visit: Yes Status: Acute Code(s): K85.10 - BILIARY ACUTE PANCREATITIS WITHOUT NECROSIS OR INFECTION SNOMED Code(s): 46682851 (2) Transaminitis Narrative/Plan: Improving, LFTs trending down. Current Visit: Yes Status: Acute Code(s): R74.01 - ELEVATION OF LEVELS OF LIVER TRANSAMINASE LEVELS SNOMED Code(s): 176030630 (3) Abdominal pain Current Visit: Yes Status: Acute Code(s): R10.9 - UNSPECIFIED ABDOMINAL PAIN SNOMED Code(s): 12441478 (4) Cholelithiasis Current Visit: No Status: Acute Code(s): K80.20 - CALCULUS OF GALLBLADDER W/O CHOLECYSTITIS W/O OBSTRUCTION SNOMED Code(s): 089551817 (5) Obese Current Visit: Yes Status: Acute Code(s): E66.9 - OBESITY, UNSPECIFIED SNOMED Code(s): 198995970 Plan: 1. Continue symptomatic and supportive care 2. Continue low-fat diet, discussed with patient eat small meals 3. Continue with recommendations from general surgery 4. No further workup indicated from gastroenterology. No plans on ERCP. Thank you for this consultation, patient is cleared from gastroenterology for discharge. Dr. Salvatore Vega I agree with the dictator's note, documented as a scribe by Mary Hart.
[2024-10-01 11:12] LABS: Glucose,Whole Blood 85 mg/dL (70-110)
--- NOTE | 2024-10-01 13:48 | P.PN ---
Subjective Progress Note Date: 10/01/24 SURGICAL PROGRESS NOTE CHIEF COMPLAINT: Gallstone pancreatitis HISTORY OF PRESENT ILLNESS: Patient is postop day #1 status post robotic cholecystectomy. Her pain is controlled. She denies any nausea or vomiting. She is having flatus. She has been up and ambulating. She is tolerating diet. She is afebrile. Patient had mild tachycardia during the night this has improved. WBC is down from 22-17 Hgb 10 total bili normalized at 0.8 LFTs trending down PHYSICAL EXAM: VITAL SIGNS: Reviewed. GENERAL: Well-developed in no acute distress. ABDOMEN: Soft. Nondistended. Incision sites clean dry and intact. Mild tenderness at incision sites. NEUROLOGIC: Alert and oriented. Cranial nerves II through XII grossly intact. ASSESSMENT: 1. Gallstone pancreatitis 2. Acute cholecystitis PLAN: -Patient is stable for discharge from surgical standpoint -Recommend Augmentin for 4 more days -Recommend 1 week follow-up with Dr. Moore Physician Rnfa note has been reviewed by physician. Signing provider agrees with the documented findings, assessment, and plan of care. Objective - Vital Signs Vital signs: Vital Signs Temp 98.3 F 10/01/24 08:00 Pulse 100 10/01/24 08:00 Resp 16 10/01/24 08:00 BP 129/81 10/01/24 08:00 Pulse Ox 95 10/01/24 08:00 FiO2 Intake & Output 09/30/24 10/01/24 10/01/24 18:59 06:59 18:59 Intake Total 1350 Output Total 5 Balance 1345 Weight 117.934 kg Intake: IV 1350 Output: Estimated Blood Loss 5 Other: Voiding Method Toilet Toilet Toilet # Voids 3 - Labs CBC & Chem 7: 10/01/24 03:55 10/01/24 03:55 Labs: Abnormal Lab Results - Last 24 Hours (Table) 09/30/24 10/01/24 10/01/24 Range/Units 21:11 01:26 03:55 WBC 17.20 H (4.50-10.00) X 10*3/uL RBC 3.66 L (4.10-5.20) X 10*6/uL Hgb 10.0 L (12.0-15.0) g/dL Hct 31.6 L (37.2-46.3) % MCHC 31.6 L (32.0-37.0) g/dL RDW 14.7 H (11.5-14.5) % Carbon Dioxide (21.6-31.8) mmol/L BUN (9.0-27.0) mg/dL Creatinine (0.6-1.5) mg/dL BUN/Creatinine Ratio (12.00-20.00) Ratio Glucose (70-110) mg/dL POC Glucose (mg/dL) 111 H 122 H (70-110) mg/dL Calcium (8.7-10.3) mg/dL ALT (8-44) U/L Total Protein (6.2-8.2) g/dL Albumin (3.8-4.9) g/dL Albumin/Globulin Ratio (1.60-3.17) Ratio 10/01/24 10/01/24 Range/Units 03:55 05:17 WBC (4.50-10.00) X 10*3/uL RBC (4.10-5.20) X 10*6/uL Hgb (12.0-15.0) g/dL Hct (37.2-46.3) % MCHC (32.0-37.0) g/dL RDW (11.5-14.5) % Carbon Dioxide 21.1 L (21.6-31.8) mmol/L BUN 5.4 L (9.0-27.0) mg/dL Creatinine 0.5 L (0.6-1.5) mg/dL BUN/Creatinine Ratio 10.80 L (12.00-20.00) Ratio Glucose 133 H (70-110) mg/dL POC Glucose (mg/dL) 121 H (70-110) mg/dL Calcium 8.2 L (8.7-10.3) mg/dL ALT 64 H (8-44) U/L Total Protein 5.2 L (6.2-8.2) g/dL Albumin 2.7 L (3.8-4.9) g/dL Albumin/Globulin Ratio 1.08 L (1.60-3.17) Ratio
[2024-10-01 13:56] VITALS: BP 130/80; TEMP 98.1
--- NOTE | 2024-10-01 13:59 | P.PN ---
Subjective Progress Note Date: 10/01/24 Hospital Course: Patient is a very pleasant 23-year-old female with a past medical history of anxiety with depression, bipolar disorder, and Gonzalo's. She presented to the emergency department today with a chief complaint of abdominal pain. She reports the symptoms began initially on and have waxed and waned over the past few days. She was evaluated at the hospital on 09/26/2024 and diagnosed with gallstones and recommended to follow-up outpatient with PCP and general surgeon. Patient reports symptoms continued to wax and wane accompanied by nausea and vomiting and states pain became persistent and intractable yesterday evening around 4 PM and remained uncontrollable all night. She reports continued nausea, epigastric pain, left upper quadrant pain, and intermittent right upper quadrant pain. She states last episode of vomiting was yesterday evening. She denies having any fevers, chills, diaphoresis, headache, lightheadedness, dizziness, chest pain, palpitations, cough or congestion, or experiencing any difficulties with or changes in her urinary function. She reports her last menstrual cycle began 09/23/2024 and only lasted for 2 days. Upon arrival to our facility, patient underwent evaluation in the emergency department. Vital signs upon arrival blood pressure 109/75, heart rate 74, respiratory rate 18, temp 97.4 F, and SpO2 100% on room air. Gallbladder ultrasound completed showing multiple layering stones seen with comet tail artifact on anterior wall may represent adenomyomatosis. Labs completed and reviewed. CBC unremarkable. BMP showing high anion gap metabolic acidosis with chloride of 106, bicarb of 19, and anion gap of 12. Blood glucose 112. Lactic acid normal findings of 1.3. Liver profile showing hyperbilirubinemia with total bili of 2.2 transaminitis with AST of 298, ALT 205, and alkaline phosphatase of 142. Amylase critical at 2939 with lipase greater than 20,000. Serum hCG was negative for . Physical exam: Patient seen and fully evaluated at bedside this morning. She reports abdominal pain significantly improved and only having mild tenderness surrounding incision sites. She is tolerating low-fat diet from breakfast this morning and denies having any nausea or vomiting. She reports passing flatus and eructations but denies bowel movement since surgery. Patient encouraged to get out of bed and ambulate this morning. Updated for possible discharge later today versus tomorrow. Vital signs reviewed and stable. General: Nontoxic, no distress and appears stated age. Derm: Skin warm and dry, normal coloration for ethnicity. Head: Atraumatic, normocephalic and symmetric. Eyes: EOM's intact, no lid lag, and anicteric sclera Mouth: no lip lesions, mucus membranes moist Cardiovascular: regular rate and rhythm with normal S1S2, no murmur, positive posterior tibial pulses bilaterally, and cap refill < 2 seconds. Lungs: Respirations even, regular, and unlabored on room air. Lungs CTA bilaterally, no rhonchi, no rales, no wheezing, and no accessory muscle usage. Abdominal: Bowel sounds x 4, abdomen soft, reported tenderness surrounding laparoscopic incision sites. Ext: ROM intact. No gross muscle atrophy, no edema, no contractures Neuro: Speech clear, face symmetrical and CN II-XII grossly intact with no noted focal neuro deficits Psych: Alert and oriented to person, place, time, and situation. Appropriate and pleasant affect. Assessment and Plan of Care: Gallstone pancreatitis Hyperbilirubinemia with transaminitis, rule out choledocholithiasis Anion gap metabolic acidosis Leukocytosis -General Surgery following, took patient for laparoscopic cholecystectomy 09/30/[address] Moore. Discussed plan of care with general surgery PA, possible discharge later today. -Portable Irrigation Operator following, discussed plan of care with gastroenterology WEB PORTAL DEVELOPER stating no need for ERCP secondary to improvement in liver function and cleared patient from their perspective. -Reglan 10 mg IVP every 6 hours as needed for nausea or vomiting. -GI prophylaxis with Protonix 40 mg IVP daily. -Symptomatic care and pain management with Tylenol 650 mg p.o. every 6 hours as needed for mild pain and/or fever, Toradol 15 mg IVP every 6 hours as needed for moderate pain, and Dilaudid 1 mg IVP every 3 hours as needed for severe pain. IV antibiotics with Zosyn 3.375 g every 8 hours secondary to signs of infection with low-grade temps and leukocytosis -Continued close monitoring of liver function and CBC with repeat a.m. labs. Data and imaging reviewed: Morning labs reviewed. CBC showing slight improvement of leukocytosis with WBC count decreasing to 17.20 and stable normocytic anemia with hemoglobin of 10.0. BMP showing mild hypocarbia with bicarb of 21.1 otherwise normal findings. Blood glucose was 133. Magnesium 1.8. Liver profile showing significant improvement in transaminitis with AST of 29, ALT of 64, and alkaline phosphatase of 104 and full resolution of hyperbilirubinemia with total bili of 0.8. Vital signs reviewed. Blood pressure 129/81, heart rate 100, respiratory rate 16, temp 98.3 F, and SpO2 of 95% on room air CODE STATUS:Full code DVT prophylaxis: SCDs Discussed with: Patient, RN, and general surgery PA Anticipated discharge date: Pending clinical course Anticipated discharge place: Home Patient was seen independently by Nurse Practitioner. This document was prepared using [employer] dictation software. Please allow for errors in industrial millwright while rare they do occur. Krystian Junior NP rendered care for this patient independently, reviewed the findings and plan as documented in the note above and agree with plan. I did not physically speak with or examine the patient on this date. Objective - Vital Signs Vital signs: Vital Signs Temp 98.3 F 10/01/24 08:00 Pulse 100 10/01/24 08:00 Resp 16 10/01/24 08:00 BP 129/81 10/01/24 08:00 Pulse Ox 95 10/01/24 08:00 FiO2 Intake & Output 09/30/24 10/01/24 10/01/24 18:59 06:59 18:59 Intake Total 1350 Output Total 5 Balance 1345 Weight 117.934 kg Intake: IV 1350 Output: Estimated Blood Loss 5 Other: Voiding Method Toilet Toilet # Voids 3 - Labs CBC & Chem 7: 10/01/24 03:55 10/01/24 03:55 Labs: Abnormal Lab Results - Last 24 Hours (Table) 09/30/24 09/30/24 09/30/24 Range/Units 03:42 10:03 21:11 WBC (4.50-10.00) X 10*3/uL RBC (4.10-5.20) X 10*6/uL Hgb (12.0-15.0) g/dL Hct (37.2-46.3) % MCHC (32.0-37.0) g/dL RDW (11.5-14.5) % Carbon Dioxide 19.9 L (21.6-31.8) mmol/L Anion Gap 15.10 H (4.00-12.00) mmol/L BUN 7.9 L (9.0-27.0) mg/dL BUN/Creatinine Ratio 11.29 L (12.00-20.00) Ratio Glucose 66 L (70-110) mg/dL POC Glucose (mg/dL) 121 H 111 H (70-110) mg/dL Total Bilirubin 1.5 H (0.3-1.2) mg/dL AST 50 H (13-35) U/L ALT 109 H (8-44) U/L Alkaline Phosphatase 141 H (41-126) U/L Albumin 3.4 L (3.8-4.9) g/dL Albumin/Globulin Ratio 1.10 L (1.60-3.17) Ratio 10/01/24 10/01/24 10/01/24 Range/Units 01:26 03:55 05:17 WBC 17.20 H (4.50-10.00) X 10*3/uL RBC 3.66 L (4.10-5.20) X 10*6/uL Hgb 10.0 L (12.0-15.0) g/dL Hct 31.6 L (37.2-46.3) % MCHC 31.6 L (32.0-37.0) g/dL RDW 14.7 H (11.5-14.5) % Carbon Dioxide (21.6-31.8) mmol/L Anion Gap (4.00-12.00) mmol/L BUN (9.0-27.0) mg/dL BUN/Creatinine Ratio (12.00-20.00) Ratio Glucose (70-110) mg/dL POC Glucose (mg/dL) 122 H 121 H (70-110) mg/dL Total Bilirubin (0.3-1.2) mg/dL AST (13-35) U/L ALT (8-44) U/L Alkaline Phosphatase (41-126) U/L Albumin (3.8-4.9) g/dL Albumin/Globulin Ratio (1.60-3.17) Ratio
--- NOTE | 2024-10-01 14:05 | P.DS ---
Providers Date of admission: 09/28/24 11:37 Expected date of discharge: 10/01/24 Attending physician: Samuel Marcelino Consults: 09/28/24 11:14 Consult Physician Urgent Consulting Provider: Mireya Regan Consult Reason/Comments: Gallstone pancreatitis Do you want consulting provider notified?: Yes Consult Physician Urgent Consulting Provider: Symone Vega Consult Reason/Comments: Gallstone pancreatitis Do you want consulting provider notified?: Yes Primary care physician: Truong Guthrie Hospital Course: Discharge Diagnosis: Gallstone pancreatitis Hyperbilirubinemia with transaminitis, choledocholithiasis ruled out Anion gap metabolic acidosis Leukocytosis Hospital Course: Patient is a very pleasant 23-year-old female with a past medical history of anxiety with depression, bipolar disorder, and Gonzalo's. She presented to the emergency department today with a chief complaint of abdominal pain. She repo rts the symptoms began initially on and have waxed and waned over the past few days. She was evaluated at the hospital on 09/26/2024 and diagnosed with gallstones and recommended to follow-up outpatient with PCP and general surgeon. Patient reports symptoms continued to wax and wane accompanied by nausea and vomiting and states pain became persistent and intractable yesterday evening around 4 PM and remained uncontrollable all night. She reports continued nausea, epigastric pain, left upper quadrant pain, and intermittent right upper quadrant pain. She states last episode of vomiting was yesterday evening. She denies having any fevers, chills, diaphoresis, headache, lightheadedness, dizziness, chest pain, palpitations, cough or congestion, or experiencing any difficulties with or changes in her urinary function. She reports her last menstrual cycle began 09/23/2024 and only lasted for 2 days. Upon arrival to our facility, patient underwent evaluation in the emergency department. Vital signs upon arrival blood pressure 109/75, heart rate 74, respiratory rate 18, temp 97.4 F, and SpO2 100% on room air. Gallbladder ultrasound completed showing multiple layering stones seen with comet tail artifact on anterior wall may represent adenomyomatosis. Labs completed and reviewed. CBC unremarkable. BMP showing high anion gap metabolic acidosis with chloride of 106, bicarb of 19, and anion gap of 12. Blood glucose 112. Lactic acid normal findings of 1.3. Liver profile showing hyperbilirubinemia with total bili of 2.2 transaminitis with AST of 298, ALT 205, and alkaline phosphatase of 142. Amylase critical at 2939 with lipase greater than 20,000. Serum hCG was negative for . Patient was evaluated by account developer and stated no need for ERCP seco ndary to improvement of liver function and clearing patient from their perspective at this time. Patient developed signs of infection with leukocytosis and low-grade temp and was started on IV antibiotics with Zosyn. She was followed closely by general surgery and general surgeon, Dr. Moore took patient for laparoscopic cholecystectomy on 09/30/2024. Patient is medically optimized at this time and stable for discharge home. Discussed in detail with general surgery PA patient being discharged home on [id number] mg capsules every 12 hours for an additional 4 days and to follow-up outpatient in their office in 1 week. Physical exam: Patient seen and fully evaluated at bedside this morning. She reports abdominal pain significantly improved and only having mild tenderness surrounding incision sites. She is tolerating low-fat diet from breakfast this morning and denies having any nausea or vomiting. She reports passing flatus and eructations but denies bowel movement since surgery. Patient encouraged to get out of bed and ambulate this morning. Updated for possible discharge later today versus tomorrow. Vital signs reviewed and stable. General: Nontoxic, no distress and appears stated age. Derm: Skin warm and dry, normal coloration for ethnicity. Head: Atraumatic, normocephalic and symmetric. Eyes: EOM's intact, no lid lag, and anicteric sclera Mouth: no lip lesions, mucus membranes moist Cardiovascular: regular rate and rhythm with normal S1S2, no murmur, positive posterior tibial pulses bilaterally, and cap refill < 2 seconds. Lungs: Respirations even, regular, and unlabored on room air. Lungs CTA bilaterally, no rhonchi, no rales, no wheezing, and no accessory muscle usage. Abdominal: Bowel sounds x 4, abdomen soft, reported tenderness surrounding laparoscopic incision sites. Ext: ROM intact. No gross muscle atrophy, no edema, no contractures Neuro: Speech clear, face symmetrical and CN II-XII grossly intact with no noted focal neuro deficits Psych: Alert and oriented to person, place, time, and situation. Appropriate and pleasant affect. A total of 34 minutes of time were spent preparing this complex discharge sum mike. Pt was discharged on 10/01/2024 at 1:50 PM. Patient was seen independently by Nurse Practitioner. This document was prepared using [employer] ([employer]) dictation software. Please allow for errors in nursery rn while rare they do occur. Krystian Junior NP rendered care for this patient independently, reviewed the findings and plan as documented in the note above. I did not physically speak with or examine the patient on this date. Patient Condition at Discharge: Stable Plan - Discharge Summary New Discharge Prescriptions: New Ibuprofen [Motrin] 600 mg PO Q8HR PRN #30 tab PRN Reason: Pain Docusate [Colace] 100 mg PO BID #30 capsule HYDROcodone/APAP 5-325MG [[place] 5-325] 1 tab PO Q6HR PRN 3 Days #12 tab PRN Reason: Pain Amoxic-Pot Clav 500-125 mg [Augmentin 500-125 mg] 1 tab PO Q12HR #8 tab Continue Cyclobenzaprine [Flexeril] 10 mg PO TID PRN #15 tab PRN Reason: Spasms Clindamycin Phosphate 1% Swab 1 applic TOPICAL DAILY Albuterol Sulfate [Albuterol Sulfate Hfa] 2 puff INHALATION RT-Q4H PRN PRN Reason: Shortness Of Breath Ondansetron Odt [Zofran ODT] 4 mg PO Q8HR PRN #10 tab PRN Reason: Nausea Thiamine [Vitamin B-1] 100 mg PO DAILY Magnesium 100mg 1 tab PO DAILY Discontinued Ketorolac [Toradol] 10 mg PO Q6HR PRN #15 tab PRN Reason: Pain Discharge Medication List Cyclobenzaprine [Flexeril] 10 mg PO TID PRN #15 tab 09/18/24 [Rx] Ondansetron Odt [Zofran ODT] 4 mg PO Q8HR PRN #10 tab 09/26/24 [Rx] Albuterol Sulfate [Albuterol Sulfate Hfa] 2 puff INHALATION RT-Q4H PRN 09/28/24 [History] Clindamycin Phosphate 1% Swab 1 applic TOPICAL DAILY 09/28/24 [History] Magnesium 100mg 1 tab PO DAILY 09/28/24 [History] Thiamine [Vitamin B-1] 100 mg PO DAILY 09/28/24 [History] Amoxic-Pot Clav 500-125 mg [Augmentin 500-125 mg] 1 tab PO Q12HR #8 tab 10/01/24 [Rx] Docusate [Colace] 100 mg PO BID #30 capsule 10/01/24 [Rx] HYDROcodone/APAP 5-325MG [[place] 5-325] 1 tab PO Q6HR PRN 3 Days #12 tab 10/01/24 [Rx] Ibuprofen [Motrin] 600 mg PO Q8HR PRN #30 tab 10/01/24 [Rx] Follow up Appointment(s)/Referral(s): Truong Guthrie MD [Primary Care Provider] - 1-2 days Wyatt Moore DO [Doctor of Osteopathic Medicine] - 1 Week Patient Instructions/Handouts: Pancreatitis (DC), Laparoscopic Cholecystectomy (DC) Activity/Diet/Wound Care/Special Instructions: No driving while taking [place] No lifting over 10 pounds You may shower. No soaking or tub baths for 2 weeks Very light activity until you are reevaluated at your follow up appointment with your surgeon low fat diet Do not take Toradol while taking Motrin/ibuprofen. Thank you for allowing us to participate in your care, it was a pleasure having you for our patient!!! . Discharge Disposition: HOME SELF-CARE
[2024-10-01 14:11] VITALS: PULSE 102
== END 2024-10-01 16:18 | disposition home or self-care (01) | DRG 263 ==
LOC: EC 08:38 → 4SSUR 11:37
PROVIDERS: ADMIT Student in an Organized Health Care Education/Training Program; ATTEND Student in an Organized Health Care Education/Training Program
PROC: 0FT44ZZ Resection of Gallbladder, Percutaneous Endoscopic Approach (ICD-10-PCS; principal; 2024-09-30 11:35)
PROC: 8E0W4CZ Robotic Assisted Procedure of Trunk Region, Percutaneous Endoscopic Approach (ICD-10-PCS; 2024-09-30 11:35)
DX: K80.00 Calculus of gallbladder with acute cholecystitis without obstruction (principal); K82.8 Other specified diseases of gallbladder; K85.10 Biliary acute pancreatitis without necrosis or infection; E06.3 Autoimmune thyroiditis; E66.9 Obesity, unspecified; E87.20 Acidosis, unspecified; F31.9 Bipolar disorder, unspecified; F41.9 Anxiety disorder, unspecified; G43.909 Migraine, unspecified, not intractable, without status migrainosus; R74.01 Elevation of levels of liver transaminase levels; Z68.42 Body mass index [BMI] 45.0-49.9, adult; Z79.899 Other long term (current) drug therapy
CPT/HCPCS: 36410; 36415; 76705; 76937; 80053; 82150; 83605; 83690; 83735; 84703; 85025; 85027; 88304; 94640; 96361; 96374; 96375; 96376; 99285